=== PATIENT | male | born 1995 | race Caucasian/White ===

== ENCOUNTER 2017-01-28 18:10 | Emergency (ER) | payer MEDICAID ==
[2017-01-28] MEDS ORDERED: Sodium Chloride 0.9% 1,000 ML IV SCH (18:15)
[2017-01-28] MEDS ORDERED: LORazepam 2 MG/ML MDV IVPUSH ONE (18:16)
[2017-01-28 18:23] VITALS: BP 128/83
[2017-01-28] MEDS ORDERED: Sodium Chloride 0.9% 1,000 ML IV ONE (18:59)
--- NOTE | 2017-01-28 19:05 | EDM.PDOC ---
ED HPI SEIZURE COMPLAINT - General Chief Complaint: Neuro Symptoms/Deficits Stated Complaint: [facility] Time Seen by Provider: 01/28/17 18:15 Source of Information: Reports: Patient, EMS History Limitations: Reports: No limitations - History of Present Illness INITIAL COMMENTS - FREE TEXT/NARRATIVE: The patient presents with a seizure. 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 He has a history of seizures. He has been taking his medications. He does drink at times but he did not have anything to drink recently. He has no fever, chills, cough, congestion, chest pain, shortness of breath, abdominal pain, nausea or vomiting. Timing/Duration: Reports: seconds: (30) Event Occurred (Where): work Event (Witnessed/Unwitnessed): witnessed Location: Reports: generalized Quality: Reports: generalized shaking Severity: moderate Context: Reports: activity/exercise (Working). Denies: recent ETOH, new/change in medications, missed med dose(s), illness, trauma, photo stimulation Pre Event Symptom(s): Reports: no other symptoms - Related Data Allergies/ADRs: Allergies Allergy/AdvReac Type Severity Reaction Status Date / Time seasonal Allergy Other Uncoded 01/28/17 18:22 Home Meds: Home Meds levETIRAcetam [Keppra] 750 mg PO BID 11/11/16 [History] levETIRAcetam [Keppra] 1,000 mg PO BID #60 tablet 01/28/17 [Rx] Past Medical History - Past Health History Medical/Surgical History: Denies Medical/Surgical History HEENT History: Reports: Other (see below) Other HEENT History: missing tooth. Musculoskeletal History: Reports: Fracture Other Musculoskeletal History: broke both arms, ankle Neurological History: Reports: Seizure - Past Surgical History Musculoskeletal Surgical History: Reports: ORIF Other Musculoskeletal Surgeries/Procedures:: left arm Social & Family History - Family History Respiratory: Reports: COPD - Tobacco Use Smoking Status *Q: Current Every Day Smoker Years of Tobacco use: 4 Packs/Tins Daily: 0.5 Second Hand Smoke Exposure: Yes - Caffeine Use Caffeine Use: Reports: Soda - Alcohol Use Days Per Week of Alcohol Use: 3 Number of Drinks Per Day: 8 Total Drinks Per Week: 24 - Recreational Drug Use Recreational Drug Use: No Drug Use in Last 12 Months: Yes Recreational Drug Type: Reports: Marijuana/Hashish, Methamphetamine Recreational Drug Use Frequency: Patient Refuses To Answer ED ROS GENERAL - Review of Systems Review Of Systems: See Below Constitutional: Reports: no symptoms HEENT: Reports: No symptoms Respiratory: Reports: No Symptoms Cardiovascular: Reports: No symptoms Endocrine: Reports: no symptoms GI/Abdominal: Reports: No symptoms : Reports: no symptoms Musculoskeletal: Reports: no symptoms Skin: Reports: no symptoms Neurological: Reports: Seizure - Physical Exam Exam: See Below Exam Limited By: No limitations General Appearance: alert, no apparent distress Ears: normal external exam Nose: normal inspection Head Exam: atraumatic, normocephalic Neck: normal inspection Respiratory/Chest: no respiratory distress, lungs clear, normal breath sounds Cardiovascular: regular rate, rhythm, no edema, no murmur GI/Abdominal: soft, non tender, no organomegaly, no mass Neuro Exam (Abbreviated): alert, oriented, no motor/sensory deficits Course - Vital Signs Last Recorded V/S: Last Vital Signs Temp 97.2 F 01/28/17 18:10 Pulse 108 H 01/28/17 18:10 Resp 16 01/28/17 18:10 BP 128/83 01/28/17 18:10 Pulse Ox 99 01/28/17 18:10 - Orders/Labs/Meds Orders: Active Orders 24 hr Category Date Time Status Magnesium Sulfate/D5W [Magnesium 1 GM in D5W 100 ML] 1 Med 01/28/17 18:59 Active gm Premix Bag 1 bag IV ONETIME Sodium Chloride 0.9% [Normal Saline] 1,000 ml Med 01/28/17 18:15 Active IV ASDIRECTED Sodium Chloride 0.9% [Normal Saline] 1,000 ml Med 01/28/17 18:59 Active IV ONETIME Medication Orders Sodium Chloride (Normal Saline) 1,000 mls @ 125 mls/hr IV ASDIRECTED NATHANAEL Last Admin: 01/28/17 18:31 Dose: 125 mls/hr Sodium Chloride (Normal Saline) 1,000 mls @ 1,000 mls/hr IV ONETIME ONE Stop: 01/28/17 19:58 Magnesium Sulfate/Dextrose 1 (gm/ Premix) 100 mls @ 100 mls/hr IV ONETIME ONE Stop: 01/28/17 19:58 Labs: Laboratory Tests 03/28/17 03/28/17 Range/Units 18:27 18:27 WBC 6.97 (4.23-9.07) K/mm3 RBC 3.82 L (4.63-6.08) M/mm3 Hgb 12.8 L (13.7-17.5) gm/L Hct 36.7 L (40.1-51.0) % MCV 96.1 H (79.0-92.2) fl MCH 33.5 H (25.7-32.2) pg MCHC 34.9 (32.2-35.5) g/dl RDW Std Deviation 40.5 (35.1-43.9) fL Plt Count 212 (163-337) K/mm3 MPV 8.7 L (9.4-12.3) fl Neut % (Auto) 75.0 H (34.0-67.9) % Lymph % (Auto) 14.8 L (21.8-53.1) % Cloud % (Auto) 9.8 (5.3-12.2) % Eos % (Auto) 0 L (0.8-7.0) Baso % (Auto) 0.3 (0.1-1.2) % Neut # (Auto) 5.23 (1.78-5.38) K/mm3 Lymph # (Auto) 1.03 L (1.32-3.57) K/mm3 Cloud # (Auto) 0.68 (0.30-0.82) K/mm3 Eos # (Auto) 0.00 L (0.04-0.54) K/mm3 Baso # (Auto) 0.02 (0.01-0.08) K/mm3 Sodium 131 L (136-145) mEq/L Potassium 3.5 (3.5-5.1) mEq/L Chloride 93 L (98-107) mEq/L Carbon Dioxide 20 L (21-32) mEq/L Anion Gap 21.5 H (5-15) BUN 9 (7-18) mg/dL Creatinine 1.0 (0.7-1.3) mg/dL Est Cr Clr Drug Dosing 130.09 mL/min Estimated GFR (MDRD) > 60 (>60) mL/min BUN/Creatinine Ratio 9.0 L (14-18) Glucose 126 H (74-106) mg/dL Calcium 9.1 (8.5-10.1) mg/dL Magnesium 1.1 L (1.8-2.4) mg/dl Total Bilirubin 1.4 H (0.2-1.0) mg/dL AST 195 H (15-37) U/L ALT 86 H (16-63) U/L Alkaline Phosphatase 80 (46-116) U/L Total Protein 7.2 (6.4-8.2) g/dl Albumin 4.3 (3.4-5.0) g/dl Globulin 2.9 gm/dL Albumin/Globulin Ratio 1.5 (1-2) Ethyl Alcohol 0.00 (0.00) gm% Meds: Medications Generic Name Dose Route Start Last Admin Trade Name Freq PRN Reason Stop Dose Admin Sodium Chloride 1,000 mls @ 125 mls/hr 01/28/17 18:15 01/28/17 18:31 Normal Saline IV 125 mls/hr ASDIRECTED NATHANAEL Administration Sodium Chloride 1,000 mls @ 1,000 mls/hr 01/28/17 18:59 Normal Saline IV 01/28/17 19:58 ONETIME ONE Magnesium Sulfate/Dextrose 1 100 mls @ 100 mls/hr 01/28/17 18:59 gm/ Premix IV 01/28/17 19:58 ONETIME ONE Discontinued Medications Generic Name Dose Route Start Last Admin Trade Name Freq PRN Reason Stop Dose Admin Lorazepam 1 mg 01/28/17 18:16 01/28/17 18:31 Ativan IVPUSH 01/28/17 18:17 1 mg ONETIME ONE Administration - Re-Assessments/Exams Free Text/Narrative Re-Assessment/Exam: 01/28/17 19:04 I ordered an IV NS at 125mL/hr and ativan 1mg IV. His CBC looks good. His anion gap was elevated at 21.5. His creatinine was normal at 1. His gluocose was elevated at 126. His total bili was elevated at 1.4. His AST was elevated at 195. His ALT was elevated at 86. His ETOH was O. Departure - Departure Time of Disposition: 19:15 Disposition: Home, Self-Care 01 Condition: good Clinical Impression: Seizure, Hypomagnesemia Prescriptions: levETIRAcetam [Keppra] 1,000 mg PO BID #60 tablet Forms: ED Department Discharge Additional Instructions: Follow up with your neurologist. Take keppra 1,000mg by mouth 2 times per day. Do not drive until the neurologist has released you. Drink plenty of fluids and take a multivitamin. Please return if you are worse. - My Orders Last 24 Hours: My Active Orders 01/28/17 18:15 Sodium Chloride 0.9% [Normal Saline] 1,000 ml IV ASDIRECTED 01/28/17 18:59 Magnesium Sulfate/D5W [Magnesium 1 GM in D5W 100 ML] 1 gm Premix Bag 1 bag IV ONETIME Sodium Chloride 0.9% [Normal Saline] 1,000 ml IV ONETIME - Assessment/Plan Last 24 Hours: My Active Orders 01/28/17 18:15 Sodium Chloride 0.9% [Normal Saline] 1,000 ml IV ASDIRECTED 01/28/17 18:59 Magnesium Sulfate/D5W [Magnesium 1 GM in D5W 100 ML] 1 gm Premix Bag 1 bag IV ONETIME Sodium Chloride 0.9% [Normal Saline] 1,000 ml IV ONETIME
[2017-01-28] MEDS ORDERED: Ondansetron 4 MG/2 ML SDV IVPUSH ONE (19:24)
== END 2017-01-28 20:45 | disposition home or self-care (01) ==
LOC: JD.ED 18:10
DX: G40.909 Epilepsy, unspecified, not intractable, without status epilepticus (principal); E83.42 Hypomagnesemia; J30.2 Other seasonal allergic rhinitis; Z79.899 Other long term (current) drug therapy; F17.200 Nicotine dependence, unspecified, uncomplicated
CPT/HCPCS: 36415; 80053; 83735; 85025; 96361; 96365; 96375; 99284; G0480; J2060; J2405; J3475; J7040; 99285-25

== ENCOUNTER 2017-02-03 14:45 | Emergency (ER) | payer OTHER, MEDICAID ==
[2017-02-03] MEDS ORDERED: Lidocaine 1% 10 ML MDV INJECT ONE (15:11)
[2017-02-03] MEDS ORDERED: Lidocaine 1% 50 ML MDV ONE (15:18)
[2017-02-03] MEDS ORDERED: Lidocaine 1% 50 ML MDV INJECT ONE (15:20)
[2017-02-03] MEDS: Lidocaine 1% 30 ML SDV ONE ×2 (15:21→15:44)
--- NOTE | 2017-02-03 15:21 | EDM.PDOC ---
ED HPI Skin/Rash - General Chief Complaint: Laceration Stated Complaint: R ARM LAC Time Seen by Provider: 02/03/17 15:12 Source: Reports: Patient History Limitations: Reports: No limitations - History of Present Illness INITIAL COMMENTS - FREE TEXT/NARRATIVE: 21-year-old male presents the ED with a work related injury. Injury occurred approximately 1430 hours. He suffered a laceration across the dorsal aspect of his right wrist on the ulnar aspect. This was cut with a sharp piece of tin. Tetanus toxoid is up to date last year. Symptom Onset Date: 02/03/17 Symptom Onset Time: 14:30 Timing: Reports: still present Location, Skin: Reports: upper extremity, right (Right dorsal wrist) Quality: Reports: Burning Severity: mild Known Identified Source: yes Place of Occurrence: work Sick Contact: no Associated Symptoms: Reports: no other symptoms Similar Symptoms Previously: no Recent Medical Care: no Treatments [employer]: Reports: Other (see below) (9) - Related Data Allergies Allergy/AdvReac Type Severity Reaction Status Date / Time seasonal Allergy Other Uncoded 02/03/17 15:06 Home Meds: Ambulatory Orders Medication Instructions Recorded Confirmed levETIRAcetam [Keppra] 750 mg PO BID 11/11/16 01/28/17 levETIRAcetam [Keppra] 1,000 mg PO BID #60 tablet 01/28/17 Past Medical History - Past Health History Medical/Surgical History: Denies Medical/Surgical History HEENT History: Reports: Other (see below) Other HEENT History: missing tooth. Musculoskeletal History: Reports: Fracture Other Musculoskeletal History: broke both arms, ankle Neurological History: Reports: Seizure (Well controlled on Keppra.) - Past Surgical History Musculoskeletal Surgical History: Reports: ORIF Other Musculoskeletal Surgeries/Procedures:: left arm Social & Family History - Family History Respiratory: Reports: COPD - Tobacco Use Smoking Status *Q: Current Every Day Smoker Years of Tobacco use: 4 Packs/Tins Daily: 0.5 Second Hand Smoke Exposure: Yes - Caffeine Use Caffeine Use: Reports: Soda - Alcohol Use Days Per Week of Alcohol Use: 3 Number of Drinks Per Day: 8 Total Drinks Per Week: 24 - Recreational Drug Use Recreational Drug Use: No Drug Use in Last 12 Months: Yes Recreational Drug Type: Reports: Marijuana/Hashish, Methamphetamine Recreational Drug Use Frequency: Patient Refuses To Answer - Living Situation & Occupation Occupation: employed ED ROS GENERAL - Review of Systems Review Of Systems: See Below Constitutional: Reports: no symptoms HEENT: Reports: No symptoms Respiratory: Reports: No Symptoms Cardiovascular: Reports: No symptoms Endocrine: Reports: no symptoms GI/Abdominal: Reports: No symptoms : Reports: no symptoms Musculoskeletal: Reports: other (Laceration right dorsal wrist.) Skin: Reports: other (Laceration right dorsal wrist.) Neurological: Reports: No Symptoms Psychiatric: Reports: No symptoms, Other Immunologic: Reports: no symptoms ED EXAM, SKIN/RASH Exam: See Below Exam Limited By: Other General Appearance: WD/WN, no apparent distress Extremities: other (Has a 1.5 cm laceration dorsal aspect of his right wrist-- ulnarly. Wound is fairly superficial. No evidence of tendon involvement.) Neurological: alert, oriented, CN II-XII intact, normal cognition, normal gait Psychiatric: normal affect, normal mood Skin: Warm, Dry, Intact, Normal color, No rash Location, Skin: head, face, neck, chest, abdomen Characteristics: macular, papular, maculopapular Associated features: warmth, tenderness, swelling ED SKIN PROCEDURES - Laceration/Wound Repair Right Posterior Distal Dorsal Wrist Lac/wound length in cm: 2.0 (Laceration ulnar aspect dorsal wrist) Appearance: subcutaneous Distal NVT: neuro & vascular intact Anesthetic type: local Local anesthesia - Lidocaine (Xylocaine): 1% plain Local anesthetic volume: 2cc Skin prep: chlorhexidine (hibiciens) Exploration/Debridement/Repair: wound explored Closed with: sutures Suture size: 4-0 # of sutures: 4 Suture type: nylon, interrupted, simple Course - Vital Signs Last Recorded V/S: Last Vital Signs Temp 37.3 C 02/03/17 15:06 Pulse Resp 16 02/03/17 15:06 BP 127/87 02/03/17 15:06 Pulse Ox 98 02/03/17 15:06 - Orders/Labs/Meds Meds: Medications Discontinued Medications Generic Name Dose Route Start Last Admin Trade Name Antoine PRN Reason Stop Dose Admin Lidocaine HCl 50 ml 02/03/17 15:11 Xylocaine 1% INJECT 02/03/17 15:12 ONETIME ONE Lidocaine HCl Confirm 02/03/17 15:16 02/03/17 15:21 Xylocaine-Mpf 1% Administered 02/03/17 15:17 Not Given Dose 30 ml .ROUTE .STK-MED ONE Lidocaine HCl Confirm 02/03/17 15:18 02/03/17 15:21 Xylocaine 1% Administered 02/03/17 15:19 Not Given Dose 50 ml .ROUTE .STK-MED ONE Lidocaine HCl 30 ml 02/03/17 15:20 Xylocaine 1% INJECT 02/03/17 15:21 ONETIME ONE - Radiology Interpretation Free Text/Narrative:: 21-year-old male presents to the ED with a work related injury. Suffered a 2.0 cm laceration dorsal ulnar wrist on a sharp piece of tin about 45 minutes ago. There is no evidence of tendon involvement. Neurovascularly intact. Plan will be cleansed and then sutured under local anesthetic. Sutures would be removed in 10 days' time. - Re-Assessments/Exams Free Text/Narrative Re-Assessment/Exam: 02/03/17 15:44 2.0 cm laceration dorsal ulnar aspect right wrist sutured times 4 Ethilon sutures. Departure - Departure Time of Disposition: 15:41 Disposition: Home, Self-Care 01 Condition: fair Clinical Impression: Laceration of right wrist Qualifiers: Encounter type: initial encounter Qualified Code(s): S61.511A - Laceration without foreign body of right wrist, initial encounter Referrals: PCP,None [Primary Care Provider] - Forms: ED Department Discharge Additional Instructions: Evaluation in the emergency room today in regards to work related injury. 2.0 cm laceration dorsal ulnar wrist was cleansed and then sutured under local anesthetic. Treatment at home as daily cleanse the wound soap and water. Showering is okay. Then apply topical antibiotic such as bacitracin or Polysporin once daily. Cover the wound to keep clean. Sutures should be removed in 10 days' time. Followup with a medical care provider sooner if you see any signs of infection such as increased swelling redness or obvious pus.
[2017-02-03 15:52] VITALS: BP 129/74
== END 2017-02-03 15:45 | disposition home or self-care (01) ==
LOC: JD.ED 14:45
DX: S61.511A Laceration without foreign body of right wrist, initial encounter (principal); W45.8XXA Other foreign body or object entering through skin, initial encounter; Y92.69 Other specified industrial and construction area as the place of occurrence of the external cause; Y99.0 Civilian activity done for income or pay; F17.210 Nicotine dependence, cigarettes, uncomplicated; Z98.890 Other specified postprocedural states
CPT/HCPCS: 12001; 99282; 99283-25

== ENCOUNTER 2017-09-01 16:15 | Emergency (ER) | payer MEDICAID, OTHER ==
[2017-09-01] MEDS ORDERED: LORazepam 2 MG/ML MDV IVPUSH ONE (16:25)
[2017-09-01] MEDS ORDERED: Sodium Chloride 0.9% 1,000 ML IV ONE (16:25)
[2017-09-01] MEDS ORDERED: Sodium Chloride 0.9% 10 ML Syringe FLUSH PRN (16:26)
--- NOTE | 2017-09-01 16:40 | EDM.PDOC ---
ED HPI GENERAL MEDICAL PROBLEM - General Chief Complaint: Neurological Problem Stated Complaint: [facility] Time Seen by Provider: 09/01/17 16:20 Source of Information: Reports: Patient History Limitations: Reports: No Limitations - History of Present Illness INITIAL COMMENTS - FREE TEXT/NARRATIVE: 22-year-old male arrives via [facility] ambulance service for evaluation and treatment post seizure. Reportedly the patient was walking down the street with some friends from work. States that he fell and had a generalized tonic- clonic seizure lasting approximately 5 minutes. He has an abrasion to his nose and a bite to his tongue. He reports he has a slight headache. Reports he was post ictal after the seizure feels that he is improving now. No loss of bowel or bladder function. Denies any current lightheadedness, dizziness, neck pain, chest pain, shortness of breath or abdominal pain. Patient states he did not hit his head. Patient has past medical history of seizures. Reports his last seizure was several months ago. He is on Keppra twice a day. He has been taking this as prescribed. Sees neurology in [place]. Last visit was about 2 months ago. Scheduled to see his neurologist in about 4 months. Reports he's had EEGs, MRIs and CTs. No abnormalities were found to be etiology as the sutures. Reports seizures first started about 2 or 3 years ago. Patient reports that he does drink alcohol. He did have some alcohol last night. Denies any illicit drugs. Tetanus is up-to-date. - Related Data Allergies Allergy/AdvReac Type Severity Reaction Status Date / Time seasonal Allergy Other Uncoded 09/01/17 16:32 Home Meds: Home Meds levETIRAcetam [Keppra] 1,000 mg PO BID #60 tablet 01/28/17 [Rx] Magnesium Chloride [Slow-Mag] 71.5 mg PO DAILY #7 tablet. 09/01/17 [Rx] lamoTRIgine [Lamotrigine] 150 mg PO BID 09/01/17 [History] Past Medical History - Past Health History Medical/Surgical History: Denies Medical/Surgical History HEENT History: Reports: Other (See Below) Other HEENT History: missing tooth. Musculoskeletal History: Reports: Fracture Other Musculoskeletal History: broke both arms, ankle Neurological History: Reports: Seizure - Past Surgical History Musculoskeletal Surgical History: Reports: ORIF Other Musculoskeletal Surgeries/Procedures:: left arm Social & Family History - Family History Respiratory: Reports: COPD - Tobacco Use Smoking Status *Q: Never Smoker Years of Tobacco use: 4 Packs/Tins Daily: 0.5 Second Hand Smoke Exposure: Yes - Caffeine Use Caffeine Use: Reports: Coffee, Soda - Alcohol Use Days Per Week of Alcohol Use: 3 Number of Drinks Per Day: 8 Total Drinks Per Week: 24 - Recreational Drug Use Recreational Drug Use: No Drug Use in Last 12 Months: Yes Recreational Drug Type: Reports: Marijuana/Hashish, Methamphetamine Recreational Drug Use Frequency: Patient Refuses To Answer - Living Situation & Occupation Occupation: Employed ED ROS GENERAL - Review of Systems Review Of Systems: See Below Constitutional: Denies: Fever HEENT: Reports: Other (tongue bite) Respiratory: Denies: Shortness of Breath Cardiovascular: Denies: Chest Pain GI/Abdominal: Denies: Abdominal Pain, Nausea, Stool Incontinence, Vomiting : Denies: Incontinence Musculoskeletal: Denies: Neck Pain Neurological: Reports: Headache, Seizure - Physical Exam Exam: See Below Exam Limited By: No Limitations General Appearance: Alert, WD/WN, No Apparent Distress Eye Exam: Bilateral Eye: PERRL Ears: Normal External Exam, Normal Canal, Hearing Grossly Normal, Normal TMs Nose: Normal Inspection Throat/Mouth: Normal Inspection, Normal Lips, Normal Voice, No Airway Compromise , Evidence of Tongue Biting (approximately 1cm cresent shaped bite errol to the right lateral tongue) Neck: Normal Inspection, Supple, Non-Tender, Full Range of Motion Respiratory/Chest: No Respiratory Distress, Lungs Clear, Normal Breath Sounds Cardiovascular: Normal Peripheral Pulses, Regular Rate, Rhythm, No Murmur GI/Abdominal: Normal Bowel Sounds, Non-Tender Neuro Exam (Abbreviated): Alert, Oriented, Normal Cognition Psychiatric: Normal Affect, Normal Mood Skin Exam: Warm, Dry, Normal Color Course - Vital Signs Last Recorded V/S: Last Vital Signs Temp 36.3 C 09/01/17 16:19 Pulse 97 09/01/17 18:03 Resp 15 09/01/17 18:03 BP 144/86 H 09/01/17 18:03 Pulse Ox 97 09/01/17 18:03 - Orders/Labs/Meds Orders: Active Orders 24 hr Category Date Time Status Peripheral IV Care [RC] . DIRECTED Care 09/01/17 16:26 Active Sodium Chloride 0.9% [Saline Flush] Med 09/01/17 16:26 Active 10 ml FLUSH ASDIRECTED PRN Peripheral IV Insertion Adult [OM.PC] Routine Oth 09/01/17 16:25 Ordered Medication Orders Sodium Chloride (Saline Flush) 10 ml FLUSH ASDIRECTED PRN PRN Reason: Keep Vein Open Last Admin: 09/01/17 17:02 Dose: 10 ml Labs: Laboratory Tests 09/01/17 09/01/17 09/01/17 Range/Units 16:25 16:25 16:45 WBC 8.64 (4.23-9.07) K/mm3 RBC 4.06 L (4.63-6.08) M/mm3 Hgb 14.1 (13.7-17.5) gm/L Hct 39.5 L (40.1-51.0) % MCV 97.3 H (79.0-92.2) fl MCH 34.7 H (25.7-32.2) pg MCHC 35.7 H (32.2-35.5) g/dl RDW Std Deviation 42.6 (35.1-43.9) fL Plt Count 223 (163-337) K/mm3 MPV 9.1 L (9.4-12.3) fl Neut % (Auto) 84.4 H (34.0-67.9) % Lymph % (Auto) 8.2 L (21.8-53.1) % Franklin % (Auto) 6.5 (5.3-12.2) % Eos % (Auto) 0.2 L (0.8-7.0) Baso % (Auto) 0.5 (0.1-1.2) % Neut # (Auto) 7.29 H (1.78-5.38) K/mm3 Lymph # (Auto) 0.71 L (1.32-3.57) K/mm3 Franklin # (Auto) 0.56 (0.30-0.82) K/mm3 Eos # (Auto) 0.02 L (0.04-0.54) K/mm3 Baso # (Auto) 0.04 (0.01-0.08) K/mm3 Manual Slide Review Normal smear PT (8.0-13.0) SECONDS INR APTT (22-36) SECONDS Sodium (136-145) mEq/L Potassium (3.5-5.1) mEq/L Chloride (98-107) mEq/L Carbon Dioxide (21-32) mEq/L Anion Gap (5-15) BUN (7-18) mg/dL Creatinine (0.7-1.3) mg/dL Est Cr Clr Drug Dosing mL/min Estimated GFR (MDRD) (>60) mL/min BUN/Creatinine Ratio (14-18) Glucose (74-106) mg/dL Calcium (8.5-10.1) mg/dL Magnesium (1.8-2.4) mg/dl Total Bilirubin (0.2-1.0) mg/dL AST (15-37) U/L ALT (16-63) U/L Alkaline Phosphatase (46-116) U/L Total Protein (6.4-8.2) g/dl Albumin (3.4-5.0) g/dl Globulin gm/dL Albumin/Globulin Ratio (1-2) Vitamin B12 (193-986) pg/ml Folate (8.6-58.9) ng/mL Urine Color Yellow (Yellow) Urine Appearance Clear (Clear) Urine pH 7.0 (5.0-8.0) Ur Specific [place] > or = 1.030 (1.005-1.030) Urine Protein 3+ H (Negative) Urine Glucose (UA) Negative (Negative) Urine Ketones Negative (Negative) Urine Occult Blood 1+ H (Negative) Urine Nitrite Negative (Negative) Urine Bilirubin Negative (Negative) Urine Urobilinogen 0.2 (0.2-1.0) Ur Leukocyte Esterase Negative (Negative) Urine RBC 5-10 H (0-5) /hpf Urine WBC 5-10 H (0-5) /hpf Ur Epithelial Cells 0-5 (0-5) /hpf Amorphous Sediment Few H (NOT SEEN) /hpf Urine Bacteria Few (FEW) /hpf Urine Mucus Moderate H (FEW) /hpf Urine Opiates Screen Negative (NEGATIVE) Ur Buprenorphine Scrn Negative (NEGATIVE) Ur Oxycodone Screen Negative (NEGATIVE) Urine Methadone Screen Negative (NEGATIVE) Ur Propoxyphene Screen Negative (NEGATIVE) Ur Barbiturates Screen Negative (NEGATIVE) Ur Tricyclics Screen Negative (NEGATIVE) Ur Phencyclidine Scrn Negative (NEGATIVE) Ur Amphetamine Screen Negative (NEGATIVE) U Methamphetamines Scrn Negative (NEGATIVE) U Benzodiazepines Scrn Negative (NEGATIVE) U Cocaine Metab Screen Presumptive positive H (NEGATIVE) U Marijuana (THC) Screen Presumptive positive H (NEGATIVE) Ethyl Alcohol (0.00) gm% 09/01/17 09/01/17 09/01/17 Range/Units 16:45 16:45 16:45 WBC (4.23-9.07) K/mm3 RBC (4.63-6.08) M/mm3 Hgb (13.7-17.5) gm/L Hct (40.1-51.0) % MCV (79.0-92.2) fl MCH (25.7-32.2) pg MCHC (32.2-35.5) g/dl RDW Std Deviation (35.1-43.9) fL Plt Count (163-337) K/mm3 MPV (9.4-12.3) fl Neut % (Auto) (34.0-67.9) % Lymph % (Auto) (21.8-53.1) % Franklin % (Auto) (5.3-12.2) % Eos % (Auto) (0.8-7.0) Baso % (Auto) (0.1-1.2) % Neut # (Auto) (1.78-5.38) K/mm3 Lymph # (Auto) (1.32-3.57) K/mm3 Franklin # (Auto) (0.30-0.82) K/mm3 Eos # (Auto) (0.04-0.54) K/mm3 Baso # (Auto) (0.01-0.08) K/mm3 Manual Slide Review PT 9.4 (8.0-13.0) SECONDS INR 0.87 APTT 24 (22-36) SECONDS Sodium 138 (136-145) mEq/L Potassium 3.8 (3.5-5.1) mEq/L Chloride 99 (98-107) mEq/L Carbon Dioxide 25 (21-32) mEq/L Anion Gap 17.8 H (5-15) BUN 9 (7-18) mg/dL Creatinine 0.8 (0.7-1.3) mg/dL Est Cr Clr Drug Dosing 161.24 mL/min Estimated GFR (MDRD) > 60 (>60) mL/min BUN/Creatinine Ratio 11.3 L (14-18) Glucose 95 (74-106) mg/dL Calcium 9.4 (8.5-10.1) mg/dL Magnesium 1.6 L (1.8-2.4) mg/dl Total Bilirubin 0.6 (0.2-1.0) mg/dL AST 115 H (15-37) U/L ALT 62 (16-63) U/L Alkaline Phosphatase 74 (46-116) U/L Total Protein 8.1 (6.4-8.2) g/dl Albumin 4.4 (3.4-5.0) g/dl Globulin 3.7 gm/dL Albumin/Globulin Ratio 1.2 (1-2) Vitamin B12 607 (193-986) pg/ml Folate 12.3 (8.6-58.9) ng/mL Urine Color (Yellow) Urine Appearance (Clear) Urine pH (5.0-8.0) Ur Specific [place] (1.005-1.030) Urine Protein (Negative) Urine Glucose (UA) (Negative) Urine Ketones (Negative) Urine Occult Blood (Negative) Urine Nitrite (Negative) Urine Bilirubin (Negative) Urine Urobilinogen (0.2-1.0) Ur Leukocyte Esterase (Negative) Urine RBC (0-5) /hpf Urine WBC (0-5) /hpf Ur Epithelial Cells (0-5) /hpf Amorphous Sediment (NOT SEEN) /hpf Urine Bacteria (FEW) /hpf Urine Mucus (FEW) /hpf Urine Opiates Screen (NEGATIVE) Ur Buprenorphine Scrn (NEGATIVE) Ur Oxycodone Screen (NEGATIVE) Urine Methadone Screen (NEGATIVE) Ur Propoxyphene Screen (NEGATIVE) Ur Barbiturates Screen (NEGATIVE) Ur Tricyclics Screen (NEGATIVE) Ur Phencyclidine Scrn (NEGATIVE) Ur Amphetamine Screen (NEGATIVE) U Methamphetamines Scrn (NEGATIVE) U Benzodiazepines Scrn (NEGATIVE) U Cocaine Metab Screen (NEGATIVE) U Marijuana (THC) Screen (NEGATIVE) Ethyl Alcohol 0.00 (0.00) gm% Meds: Medications Generic Name Dose Route Start Last Admin Trade Name Freq PRN Reason Stop Dose Admin Sodium Chloride 10 ml 09/01/17 16:26 09/01/17 17:02 Saline Flush FLUSH 10 ml ASDIRECTED PRN Administration Keep Vein Open Discontinued Medications Generic Name Dose Route Start Last Admin Trade Name Freq PRN Reason Stop Dose Admin Sodium Chloride 1,000 mls @ 999 mls/hr 09/01/17 16:25 09/01/17 17:01 Normal Saline IV 09/01/17 17:25 999 mls/hr ONETIME ONE Administration Lorazepam 1 mg 09/01/17 16:25 09/01/17 17:01 Ativan IVPUSH 09/01/17 16:26 1 mg ONETIME ONE Administration - Re-Assessments/Exams Free Text/Narrative Re-Assessment/Exam: 09/01/17 18:02 I Reviewed the lab results with the patient. I feel that his seizure today was induced by alcohol from last night. I encouraged him not to drink or use illicit drugs. Continue on his Keppra 1000 milligrams twice a day. Recommend follow-up with neurology. No driving until cleared by neurology. Recommend follow-up with family medicine for his hypomagnesemia. Discharge instructions as documented. Departure - Departure Time of Disposition: 18:05 Disposition: Home, Self-Care 01 Condition: Fair Clinical Impression: Hypomagnesemia, Seizure - Discharge Information Prescriptions: Magnesium Chloride [Slow-Mag] 71.5 mg PO DAILY #7 tablet.dr Instructions: Hypomagnesemia, Seizure, Adult, [id number] Referrals: Zain Falcon MD [Physician] - Yadira Moran [Physician] - Forms: ED Department Discharge Additional Instructions: Slow-Mag 1 tab daily. Follow-up with family medicine this week or early next week for a recheck on your magnesium levels. Recommend Dr. Sewell at [facility]. Call [phone] to schedule with him. Follow-up with neurology. No driving until cleared with neurology. Continue on your Keppra 1000 mg twice a day. Make sure you are drinking plenty of fluids. Avoid alcohol and any illicit drugs. Please return to the ER if your symptoms change or worsen. - My Orders Last 24 Hours: My Active Orders 09/01/17 16:25 Peripheral IV Insertion Adult [OM.PC] Routine 09/01/17 16:26 Peripheral IV Care [RC] . DIRECTED Sodium Chloride 0.9% [Saline Flush] 10 ml FLUSH ASDIRECTED PRN - Assessment/Plan Last 24 Hours: My Active Orders 09/01/17 16:25 Peripheral IV Insertion Adult [OM.PC] Routine 09/01/17 16:26 Peripheral IV Care [RC] . DIRECTED Sodium Chloride 0.9% [Saline Flush] 10 ml FLUSH ASDIRECTED PRN
[2017-09-01 18:04] VITALS: BP 144/86
== END 2017-09-01 18:26 | disposition home or self-care (01) ==
LOC: JD.ED 16:15
DX: E83.42 Hypomagnesemia (principal); R56.9 Unspecified convulsions; Z79.899 Other long term (current) drug therapy
CPT/HCPCS: 36415; 80053; 80306; 81001; 82607; 82746; 83735; 85025; 85610; 85730; 96361; 96374; 99285; G0480; J2060; J7040; J7050; 99284

== ENCOUNTER 2017-09-26 09:21 | Emergency (ER) | payer MEDICAID ==
[2017-09-26 09:33] VITALS: BP 157/100
[2017-09-26] MEDS ORDERED: LORazepam 2 MG/ML MDV IVPUSH ONE ×2 (09:44→12:12)
[2017-09-26] MEDS ORDERED: Sodium Chloride 0.9% 10 ML Syringe FLUSH PRN (09:45)
[2017-09-26] MEDS ORDERED: Sodium Chloride 0.9% 1,000 ML IV SCH (09:45)
[2017-09-26] MEDS ORDERED: Sodium Chloride 0.9% 1,000 ML IV ONE (10:40)
--- NOTE | 2017-09-26 10:54 | EDM.PDOC ---
ED HPI GENERAL MEDICAL PROBLEM - General Chief Complaint: Neurological Problem Stated Complaint: [facility] Time Seen by Provider: 09/26/17 09:39 Source of Information: Reports: Patient, EMS History Limitations: Reports: No Limitations - History of Present Illness INITIAL COMMENTS - FREE TEXT/NARRATIVE: The patient presents after a seizure. He has a history of seizures. He is on keppra and lamotrigine. He has been out of one of them for a few days. It was Thanksgiving yesterday and he could not pick it up. He was up on a roof in a cage when it happened. He did not fall and he has no injuries from the seizure. He was post ictal when EMS arrived and he was alert and orientated when I went into the room to examine him. He denies any headache, fever, chills , cough, congestion or runny nose. He does admit to drinking beer yesterday. He did get enough sleep last night. Onset: Sudden Duration: Minutes: Location: Reports: Generalized Severity: Moderate Improves with: Reports: None Worsens with: Reports: None Context: Reports: Activity (He was at work) Associated Symptoms: Denies: Chest Pain, Cough, Fever/Chills, Headaches, Nausea/ Vomiting, Shortness of Breath - Related Data Allergies Allergy/AdvReac Type Severity Reaction Status Date / Time seasonal Allergy Other Uncoded 09/01/17 16:32 Home Meds: Home Meds levETIRAcetam [Keppra] 1,000 mg PO BID #60 tablet 01/28/17 [Rx] Magnesium Chloride [Slow-Mag] 71.5 mg PO DAILY #7 tablet. 09/01/17 [Rx] lamoTRIgine [Lamotrigine] 150 mg PO BID 09/01/17 [History] LORazepam [Ativan] 1 mg PO TID #18 tablet 09/26/17 [Rx] Past Medical History - Past Health History Medical/Surgical History: Denies Medical/Surgical History HEENT History: Reports: Other (See Below) Other HEENT History: missing tooth. Musculoskeletal History: Reports: Fracture Other Musculoskeletal History: broke both arms, ankle Neurological History: Reports: Seizure Psychiatric History: Reports: Anxiety - Past Surgical History Musculoskeletal Surgical History: Reports: ORIF Other Musculoskeletal Surgeries/Procedures:: left arm Social & Family History - Family History Respiratory: Reports: COPD - Tobacco Use Smoking Status *Q: Current Every Day Smoker Years of Tobacco use: 3 Packs/Tins Daily: 1 Second Hand Smoke Exposure: Yes - Caffeine Use Caffeine Use: Reports: Energy Drinks, Soda - Alcohol Use Days Per Week of Alcohol Use: 3 Number of Drinks Per Day: 8 Total Drinks Per Week: 24 - Recreational Drug Use Recreational Drug Use: No Drug Use in Last 12 Months: Yes Recreational Drug Type: Reports: Marijuana/Hashish, Methamphetamine Recreational Drug Use Frequency: Patient Refuses To Answer - Living Situation & Occupation Occupation: Employed ED ROS GENERAL - Review of Systems Review Of Systems: See Below Constitutional: Reports: No Symptoms HEENT: Reports: No Symptoms Respiratory: Reports: No Symptoms Cardiovascular: Reports: No Symptoms Endocrine: Reports: No Symptoms GI/Abdominal: Reports: No Symptoms : Reports: No Symptoms Musculoskeletal: Reports: No Symptoms Skin: Reports: No Symptoms Neurological: Reports: Seizure - Physical Exam Exam: See Below Exam Limited By: No Limitations General Appearance: Alert, No Apparent Distress Ears: Normal External Exam Nose: Normal Inspection Head Exam: Atraumatic, Normocephalic Neck: Normal Inspection Respiratory/Chest: No Respiratory Distress, Lungs Clear, Normal Breath Sounds Cardiovascular: Regular Rate, Rhythm, No Edema, No Murmur GI/Abdominal: Soft, Non-Tender, No Organomegaly, No Mass Neuro Exam (Abbreviated): Alert, Oriented, No Motor/Sensory Deficits Course - Vital Signs Last Recorded V/S: Last Vital Signs Temp 98.4 F 09/26/17 09:30 Pulse 112 H 09/26/17 09:30 Resp 17 09/26/17 09:30 BP 157/100 H 09/26/17 09:30 Pulse Ox 96 09/26/17 09:30 - Orders/Labs/Meds Orders: Active Orders 24 hr Category Date Time Status Cardiac Monitoring [RC] . DIRECTED Care 09/26/17 09:45 Active Peripheral IV Care [RC] . DIRECTED Care 09/26/17 09:45 Active KEPPRA [REF] Stat Lab 09/26/17 09:57 Received LAMOTRIGINE [REF] Stat Lab 09/26/17 09:57 Received LORazepam [Ativan] Med 09/26/17 12:12 Once 1 mg IVPUSH ONETIME ONE Sodium Chloride 0.9% [Normal Saline] 1,000 ml Med 09/26/17 09:45 Active IV ASDIRECTED Sodium Chloride 0.9% [Saline Flush] Med 09/26/17 09:45 Active 10 ml FLUSH ASDIRECTED PRN Peripheral IV Insertion Adult [OM.PC] Stat Oth 09/26/17 09:45 Ordered Medication Orders Sodium Chloride (Normal Saline) 1,000 mls @ 125 mls/hr IV ASDIRECTED NATHANAEL Last Admin: 09/26/17 10:00 Dose: 125 mls/hr Sodium Chloride (Saline Flush) 10 ml FLUSH ASDIRECTED PRN PRN Reason: Keep Vein Open Last Admin: 09/26/17 10:28 Dose: 10 ml Labs: Laboratory Tests 09/26/17 09/26/17 09/26/17 Range/Units 09:57 09:57 10:30 WBC 7.55 (4.23-9.07) K/mm3 RBC 4.30 L (4.63-6.08) M/mm3 Hgb 14.7 (13.7-17.5) gm/L Hct 41.0 (40.1-51.0) % MCV 95.3 H (79.0-92.2) fl MCH 34.2 H (25.7-32.2) pg MCHC 35.9 H (32.2-35.5) g/dl RDW Std Deviation 41.3 (35.1-43.9) fL Plt Count 209 (163-337) K/mm3 MPV 9.2 L (9.4-12.3) fl Neut % (Auto) 81.2 H (34.0-67.9) % Lymph % (Auto) 7.4 L (21.8-53.1) % Elk % (Auto) 10.7 (5.3-12.2) % Eos % (Auto) 0.1 L (0.8-7.0) Baso % (Auto) 0.3 (0.1-1.2) % Neut # (Auto) 6.13 H (1.78-5.38) K/mm3 Lymph # (Auto) 0.56 L (1.32-3.57) K/mm3 [place] # (Auto) 0.81 (0.30-0.82) K/mm3 Eos # (Auto) 0.01 L (0.04-0.54) K/mm3 Baso # (Auto) 0.02 (0.01-0.08) K/mm3 Manual Slide Review Abnormal smear Sodium 135 L (136-145) mEq/L Potassium 3.7 (3.5-5.1) mEq/L Chloride 91 L (98-107) mEq/L Carbon Dioxide 23 (21-32) mEq/L Anion Gap 24.7 H (5-15) BUN 14 (7-18) mg/dL Creatinine 1.0 (0.7-1.3) mg/dL Est Cr Clr Drug Dosing 128.99 mL/min Estimated GFR (MDRD) > 60 (>60) mL/min BUN/Creatinine Ratio 14.0 (14-18) Glucose 178 H (74-106) mg/dL Calcium 9.9 (8.5-10.1) mg/dL Magnesium 1.2 L (1.8-2.4) mg/dl Total Bilirubin 1.9 H (0.2-1.0) mg/dL AST 199 H (15-37) U/L ALT 77 H (16-63) U/L Alkaline Phosphatase 87 (46-116) U/L Total Protein 8.3 H (6.4-8.2) g/dl Albumin 4.6 (3.4-5.0) g/dl Globulin 3.7 gm/dL Albumin/Globulin Ratio 1.2 (1-2) Urine Opiates Screen Negative (NEGATIVE) Ur Buprenorphine Scrn Negative (NEGATIVE) Ur Oxycodone Screen Negative (NEGATIVE) Urine Methadone Screen Negative (NEGATIVE) Ur Propoxyphene Screen Negative (NEGATIVE) Ur Barbiturates Screen Negative (NEGATIVE) Ur Tricyclics Screen Negative (NEGATIVE) Ur Phencyclidine Scrn Negative (NEGATIVE) Ur Amphetamine Screen Negative (NEGATIVE) U Methamphetamines Scrn Negative (NEGATIVE) U Benzodiazepines Scrn Negative (NEGATIVE) U Cocaine Metab Screen Negative (NEGATIVE) U Marijuana (THC) Screen Presumptive positive H (NEGATIVE) Ethyl Alcohol 0.00 (0.00) gm% Meds: Medications Generic Name Dose Route Start Last Admin Trade Name Freq PRN Reason Stop Dose Admin Sodium Chloride 1,000 mls @ 125 mls/hr 09/26/17 09:45 09/26/17 10:00 Normal Saline IV 125 mls/hr ASDIRECTED NATHANAEL Administration Sodium Chloride 10 ml 09/26/17 09:45 09/26/17 10:28 Saline Flush FLUSH 10 ml ASDIRECTED PRN Administration Keep Vein Open Discontinued Medications Generic Name Dose Route Start Last Admin Trade Name Antoine PRN Reason Stop Dose Admin Sodium Chloride 1,000 mls @ 1,000 mls/hr 09/26/17 10:40 09/26/17 11:44 Normal Saline IV 09/26/17 11:39 1,000 mls/hr ONETIME ONE Administration Lorazepam 1 mg 09/26/17 09:44 09/26/17 09:54 Ativan IVPUSH 09/26/17 09:45 1 mg ONETIME ONE Administration Magnesium Oxide 400 mg 09/26/17 11:14 09/26/17 11:43 Magnesium Oxide PO 09/26/17 11:15 400 mg ONETIME ONE Administration - Re-Assessments/Exams Free Text/Narrative Re-Assessment/Exam: 09/26/17 10:57 I ordered an IV NS 1L bolus, ativan 1mg IV, and labs. 09/26/17 12:13 His CBC looks good. His Na was a little low 135. His creatinine was negative. His magnesium was low at 1.2. His AST was elevated at 199. His ALT was elevated at 77. His UDS was positive for marijuana. His ETOH was zero. He is feeling better but I feel he may be withdrawing from alcohol. He says he has been cutting back some and he had 2 beers yesterday. He wants to quit but he will stop on his own. I will give him another dose of ativan and I will get him on ativan. Departure - Departure Time of Disposition: 12:20 Disposition: Home, Self-Care 01 Condition: Good Clinical Impression: Seizure - Discharge Information Prescriptions: LORazepam [Ativan] 1 mg PO TID #18 tablet Referrals: PCP,None [Primary Care Provider] - Grace Weaver PA-C [Physician [employer]] - 1 Week Forms: ED Department Discharge Additional Instructions: Take your medication as prescribed. Also take ativan 1mg 3 times per day for 3 days then 2 times per day for 3 days and then at night for 3 days. Please return if you are worse. If you need help stopping drinking please call [facility] at . Please return if you are worse. - My Orders Last 24 Hours: My Active Orders 09/26/17 09:45 Cardiac Monitoring [RC] . DIRECTED Peripheral IV Care [RC] . DIRECTED Sodium Chloride 0.9% [Normal Saline] 1,000 ml IV ASDIRECTED Sodium Chloride 0.9% [Saline Flush] 10 ml FLUSH ASDIRECTED PRN Peripheral IV Insertion Adult [OM.PC] Stat 09/26/17 09:57 KEPPRA [REF] Stat LAMOTRIGINE [REF] Stat 09/26/17 12:12 LORazepam [Ativan] 1 mg IVPUSH ONETIME ONE - Assessment/Plan Last 24 Hours: My Active Orders 09/26/17 09:45 Cardiac Monitoring [RC] . DIRECTED Peripheral IV Care [RC] . DIRECTED Sodium Chloride 0.9% [Normal Saline] 1,000 ml IV ASDIRECTED Sodium Chloride 0.9% [Saline Flush] 10 ml FLUSH ASDIRECTED PRN Peripheral IV Insertion Adult [OM.PC] Stat 09/26/17 09:57 KEPPRA [REF] Stat LAMOTRIGINE [REF] Stat 09/26/17 12:12 LORazepam [Ativan] 1 mg IVPUSH ONETIME ONE
[2017-09-26] MEDS ORDERED: Magnesium Oxide 400 MG Tab PO ONE (11:14)
== END 2017-09-26 13:00 | disposition home or self-care (01) ==
LOC: JD.ED 09:21
DX: R56.9 Unspecified convulsions (principal); F17.210 Nicotine dependence, cigarettes, uncomplicated; Z79.899 Other long term (current) drug therapy
CPT/HCPCS: 36415; 80053; 80175; 80177; 80306; 83735; 85025; 96361; 96374; 96376; 99284; A9270; G0480; J2060; J7040; J7050

== ENCOUNTER 2017-11-19 11:57 | Emergency (ER) | payer MEDICAID, OTHER, SELFPAY ==
[2017-11-19 12:06] VITALS: BP 149/123
--- NOTE | 2017-11-19 12:37 | EDM.PDOC ---
ED HPI GENERAL MEDICAL PROBLEM - General Chief Complaint: Neurological Problem Stated Complaint: SEIZURE Time Seen by Provider: 11/19/17 12:13 Source of Information: Reports: Patient, Significant Other (Girlfriend) History Limitations: Reports: No Limitations - History of Present Illness INITIAL COMMENTS - FREE TEXT/NARRATIVE: The patient's girlfriend states that she and the patient were smoking in a garage, when the patient yelled out and clenched up. She helped him to the ground so that he was not injured. She states that he remained clenched up for about 2 minutes. He was then unresponsive for 3-4 minutes, and did not regain normal cognitive function for about 5 minutes. The patient states that he did not bite his tongue, and there was no urinary or fecal incontinence. The patient has a seizure disorder. He states that his last seizure was about 3 months ago, and that he has a seizure approximately 4 times year. The patient states that he is on both Keppra and Lamictal, and that he has not missed any doses recently. He reports that he has had 4-5 days of a decreased appetite, nausea and vomiting. He states that he has been sleeping well. He denies having any other undue stressors in his life. The patient told me that he had 2 shots of alcohol last night, however, told the triage nurse that he had a lot to drink last night. The triage nurse also notes that the patient has a known history of medication noncompliance The patient's Neurologist is Dr. Bunn, who the patient last saw about 2-1/ 2 months ago. His antiepileptic medication doses were adjusted at that time. The patient does not have a PCP. - Related Data Allergies Allergy/AdvReac Type Severity Reaction Status Date / Time seasonal Allergy Other Uncoded 11/19/17 12:06 Home Meds: Home Meds levETIRAcetam [Keppra] 1,000 mg PO BID #60 tablet 01/28/17 [Rx] lamoTRIgine [Lamotrigine] 150 mg PO BID 09/01/17 [History] Past Medical History Neurological History: Reports: Seizure Psychiatric History: Reports: Anxiety - Past Surgical History Musculoskeletal Surgical History: Reports: ORIF (left forearm) Social & Family History - Family History Family Medical History: Noncontributory Respiratory: Reports: COPD - Tobacco Use Smoking Status *Q: Current Every Day Smoker Years of Tobacco use: 6 Packs/Tins Daily: 0.7 Second Hand Smoke Exposure: Yes - Caffeine Use Caffeine Use: Reports: Soda - Alcohol Use Alcohol Use History: Yes Days Per Week of Alcohol Use: 4 Number of Drinks Per Day: 4 Total Drinks Per Week: 16 Date of Last Drink: 11/18/17 Time of Last Drink: 23:00 Alcohol Use Frequency: Socially - Recreational Drug Use Recreational Drug Use: Yes Drug Use in Last 12 Months: Yes Recreational Drug Type: Reports: Marijuana/Hashish (last around Aug 2017), Methamphetamine - Living Situation & Occupation Living situation: Reports: Single, Other (with friends) Occupation: Unemployed ED ROS GENERAL - Review of Systems Review Of Systems: ROS reveals no pertinent complaints other than HPI. - Physical Exam Exam: See Below Exam Limited By: No Limitations General Appearance: Alert, WD/WN, No Apparent Distress Eye Exam: Bilateral Eye: Normal Inspection Ears: Normal External Exam, Hearing Grossly Normal Nose: Normal Inspection, No Blood Throat/Mouth: Normal Inspection, Normal Lips, Normal Voice, No Airway Compromise Head Exam: Atraumatic, Normocephalic Neck: Normal Inspection, Full Range of Motion Respiratory/Chest: No Respiratory Distress, Lungs Clear, Normal Breath Sounds, No Accessory Muscle Use Cardiovascular: Normal Peripheral Pulses, Regular Rate, Rhythm, No Gallop, No JVD, No Murmur, No Rub GI/Abdominal: Normal Bowel Sounds, Soft, Non-Tender, No Organomegaly, No Distention, No Abnormal Bruit, No Mass (Male) Exam: Deferred Rectal (Males) Exam: Deferred Neuro Exam (Abbreviated): Alert, Oriented, CN II-XII Intact, Normal Cognition, No Motor/Sensory Deficits Back Exam: Normal Inspection, Full Range of Motion, NT Extremities: Normal Inspection, Normal Range of Motion, No Pedal Edema, Normal Capillary Refill, Other (Non-blanching erythema to the dorsal aspect of the patient's right hand. Nontender. The patient states that it developed yesterday. ) Psychiatric: Normal Affect Skin Exam: Warm, Dry, Intact, Normal Color, No Rash Course - Vital Signs Last Recorded V/S: Last Vital Signs Temp 36.4 C 11/19/17 12:02 Pulse 123 H 11/19/17 12:02 Resp 18 11/19/17 12:02 BP 149/123 H 11/19/17 12:02 Pulse Ox 93 L 11/19/17 12:02 - Orders/Labs/Meds Labs: Laboratory Tests 11/19/17 11/19/17 11/19/17 Range/Units 13:01 13:01 13:01 WBC 7.51 (4.23-9.07) K/mm3 RBC 4.58 L (4.63-6.08) M/mm3 Hgb 15.5 (13.7-17.5) gm/L Hct 44.8 (40.1-51.0) % MCV 97.8 H (79.0-92.2) fl MCH 33.8 H (25.7-32.2) pg MCHC 34.6 (32.2-35.5) g/dl RDW Std Deviation 44.3 H (35.1-43.9) fL Plt Count 202 (163-337) K/mm3 MPV 9.3 L (9.4-12.3) fl Neutrophils % (Manual) 76 H (40-60) % Band Neutrophils % 1 (0-10) % Lymphocytes % (Manual) 15 L (20-40) % Atypical Lymphs % 1 % Monocytes % (Manual) 7 (2-10) % Eosinophils % (Manual) 0 L (0.8-7.0) % Basophils % (Manual) 0 L (0.2-1.2) Platelet Estimate Adequate Plt Morphology Comment Normal RBC Morph Comment Normal Sodium 137 (136-145) mEq/L Potassium 2.9 L (3.5-5.1) mEq/L Chloride 87 L (98-107) mEq/L Carbon Dioxide 15 L (21-32) mEq/L Anion Gap 37.9 H (5-15) BUN 9 (7-18) mg/dL Creatinine 1.2 (0.7-1.3) mg/dL Est Cr Clr Drug Dosing 101.35 mL/min Estimated GFR (MDRD) > 60 (>60) mL/min BUN/Creatinine Ratio 7.5 L (14-18) Glucose 170 H (74-106) mg/dL Calcium 9.8 (8.5-10.1) mg/dL Phosphorus 4.8 H (2.6-4.7) mg/dL Magnesium 1.2 L (1.8-2.4) mg/dl Total Bilirubin 2.3 H (0.2-1.0) mg/dL AST 419 H (15-37) U/L ALT 220 H (16-63) U/L Alkaline Phosphatase 166 H (46-116) U/L Total Protein 8.4 H (6.4-8.2) g/dl Albumin 4.4 (3.4-5.0) g/dl Globulin 4.0 gm/dL Albumin/Globulin Ratio 1.1 (1-2) Urine Opiates Screen (NEGATIVE) Ur Buprenorphine Scrn (NEGATIVE) Ur Oxycodone Screen (NEGATIVE) Urine Methadone Screen (NEGATIVE) Ur Propoxyphene Screen (NEGATIVE) Ur Barbiturates Screen (NEGATIVE) Ur Tricyclics Screen (NEGATIVE) Ur Phencyclidine Scrn (NEGATIVE) Ur Amphetamine Screen (NEGATIVE) U Methamphetamines Scrn (NEGATIVE) U Benzodiazepines Scrn (NEGATIVE) U Cocaine Metab Screen (NEGATIVE) U Marijuana (THC) Screen (NEGATIVE) Ethyl Alcohol 0.00 (0.00) gm% 11/19/17 Range/Units 13:15 WBC (4.23-9.07) K/mm3 RBC (4.63-6.08) M/mm3 Hgb (13.7-17.5) gm/L Hct (40.1-51.0) % MCV (79.0-92.2) fl MCH (25.7-32.2) pg MCHC (32.2-35.5) g/dl RDW Std Deviation (35.1-43.9) fL Plt Count (163-337) K/mm3 MPV (9.4-12.3) fl Neutrophils % (Manual) (40-60) % Band Neutrophils % (0-10) % Lymphocytes % (Manual) (20-40) % Atypical Lymphs % % Monocytes % (Manual) (2-10) % Eosinophils % (Manual) (0.8-7.0) % Basophils % (Manual) (0.2-1.2) Platelet Estimate Plt Morphology Comment RBC Morph Comment Sodium (136-145) mEq/L Potassium (3.5-5.1) mEq/L Chloride (98-107) mEq/L Carbon Dioxide (21-32) mEq/L Anion Gap (5-15) BUN (7-18) mg/dL Creatinine (0.7-1.3) mg/dL Est Cr Clr Drug Dosing mL/min Estimated GFR (MDRD) (>60) mL/min BUN/Creatinine Ratio (14-18) Glucose (74-106) mg/dL Calcium (8.5-10.1) mg/dL Phosphorus (2.6-4.7) mg/dL Magnesium (1.8-2.4) mg/dl Total Bilirubin (0.2-1.0) mg/dL AST (15-37) U/L ALT (16-63) U/L Alkaline Phosphatase (46-116) U/L Total Protein (6.4-8.2) g/dl Albumin (3.4-5.0) g/dl Globulin gm/dL Albumin/Globulin Ratio (1-2) Urine Opiates Screen Negative (NEGATIVE) Ur Buprenorphine Scrn Negative (NEGATIVE) Ur Oxycodone Screen Negative (NEGATIVE) Urine Methadone Screen Negative (NEGATIVE) Ur Propoxyphene Screen Negative (NEGATIVE) Ur Barbiturates Screen Negative (NEGATIVE) Ur Tricyclics Screen Negative (NEGATIVE) Ur Phencyclidine Scrn Negative (NEGATIVE) Ur Amphetamine Screen Negative (NEGATIVE) U Methamphetamines Scrn Negative (NEGATIVE) U Benzodiazepines Scrn Negative (NEGATIVE) U Cocaine Metab Screen Negative (NEGATIVE) U Marijuana (THC) Screen Negative (NEGATIVE) Ethyl Alcohol (0.00) gm% Meds: Medications Discontinued Medications Generic Name Dose Route Start Last Admin Trade Name Freq PRN Reason Stop Dose Admin Magnesium Sulfate 2 gm/ Premix 50 mls @ 50 mls/hr 11/19/17 13:40 11/19/17 13: 58 IV 11/19/17 14:39 50 mls/hr ONETIME ONE Administration Sodium Chloride 1,000 mls @ 999 mls/hr 11/19/17 13:40 11/19/17 13:55 Normal Saline IV 11/19/17 14:40 999 mls/hr ONETIME ONE Administration Lorazepam Confirm 11/19/17 12:55 11/19/17 13:00 Ativan Administered 11/19/17 12:56 Not Given Dose 2 mg .ROUTE .STK-MED ONE Lorazepam 2 mg 11/19/17 12:51 11/19/17 12:53 Ativan IM 11/19/17 12:52 2 mg ONETIME STA Administration - Re-Assessments/Exams Free Text/Narrative Re-Assessment/Exam: 11/19/17 12:51 The patient is having a seizure. 2 mg Ativan IM has been ordered. Of note, when seizing, the patient flails his arms around a lot. I suspect that the erythema to the dorsum of his right hand is an ecchymosis from an earlier seizure that the patient did not know about. 11/19/17 14:17 The patient's potassium returned low at 2.9, with a magnesium low at 1.2. A 2 g magnesium rider was ordered. The patient's bicarbonate returned low at 15, with an anion gap significantly elevated at 37.9. 1 L normal saline was ordered. The patient's LFTs are abnormal. His bilirubin is elevated at 2.3. His AST/ALT are elevated at 419/220, and his alkaline phosphatase is elevated at 166. It is unclear if his LFTs are elevated due to his recent gastrointestinal illness, one or both of his antiepileptic medications, or recreational drug use. A urine drug screen was run, and has returned negative. The above was discussed with Dr. Frausto at 14:14, and he has agreed to admit the patient to correct his electronic abnormalities. 11/19/17 14:25 The above plan was discussed with the patient and his girlfriend. The patient does not want to be admitted. He stated that "I'll just walk in another day". I explained that the electrolyte abnormalities that he has are significant, and need correction immediately. The patient did not seem to care - he reiterated that he will simply come back some other day. I informed the patient that he will need to sign AMA. He said he will. 11/19/17 14:51 Notified by the patient's nurse that the patient is willing to stay in the ED to finish his IV magnesium, however, he then wants to leave. Under these circumstances, I will still have him sign AMA. Departure - Departure Time of Disposition: 14:17 Disposition: Against Medical Advice 07 Condition: Fair Clinical Impression: Epileptic seizure, Hypokalemia, Hypomagnesemia, High anion gap metabolic acidosis, Abnormal LFTs - Discharge Information Instructions: Hypomagnesemia, Hypokalemia, Seizure, Adult, [id number] Referrals: Zain Falcon MD [Physician] - Forms: ED Department Discharge Additional Instructions: You were seen in the emergency room after having a seizure at home. You suffered an additional seizure in the ER. Workup in the ER included blood work and a urine drug screen. Your workup found that you have significantly low potassium, significantly low magnesium, an anion gap metabolic acidosis, and elevated liver function tests. It was strongly recommended that you be admitted to the hospital to receive IV fluids to correct your lab abnormalities, however, you have decided to leave AGAINST MEDICAL ADVICE. If you change your mind, please do not hesitate to return to the ER. Follow-up with your Neurologist, Dr. Bunn, at the next available appointment.
[2017-11-19] MEDS ORDERED: LORazepam 2 MG/ML SDV IM STA (12:51)
[2017-11-19] MEDS ORDERED: LORazepam 2 MG/ML SDV ONE (12:55)
[2017-11-19] MEDS ORDERED: Magnesium Sulfate/Water 2 GM in Premix Bag 1 BAG IV ONE (13:40)
[2017-11-19] MEDS ORDERED: Sodium Chloride 0.9% 1,000 ML IV ONE (13:40)
== END 2017-11-19 15:35 | disposition left against medical advice (07) ==
LOC: JD.ED 11:57
DX: G40.909 Epilepsy, unspecified, not intractable, without status epilepticus (principal); E87.6 Hypokalemia; E83.42 Hypomagnesemia; E87.2 Acidosis; R79.89 Other specified abnormal findings of blood chemistry; F17.210 Nicotine dependence, cigarettes, uncomplicated
CPT/HCPCS: 36415; 80053; 80306; 83735; 84100; 85025; 96361; 96365; 96372; 99284; G0480; J2060; J7040; J3475

== ENCOUNTER 2017-12-16 15:27 | Inpatient (IN) | payer MEDICAID ==
[2017-12-16] MEDS ORDERED: LORazepam 2 MG/ML MDV IVPUSH STA (15:57)
--- NOTE | 2017-12-16 16:18 | EDM.PDOC ---
ED HPI GENERAL MEDICAL PROBLEM - General Chief Complaint: Neurological Problem Stated Complaint: JAZ Time Seen by Provider: 12/16/17 15:38 Source of Information: Reports: Patient, Old Records, Significant Other ( Girlfriend) History Limitations: Reports: Altered Mental Status - History of Present Illness INITIAL COMMENTS - FREE TEXT/NARRATIVE: The patient's roommate states that she believes he had an unwitnessed seizure, as she found him confused around 14:30 this afternoon. He then had a witnessed seizure, lasting approximately 50 seconds, at 14:50. He was then postictal for approximately 10-15 minutes. The patient denies biting his tongue or having either urinary or fecal incontinence, however, he reports having a headache, and wonders if he may have hit his head. The patient states that he takes both Keppra and Lamictal twice a day, with his most recent doses this morning. He denies having skipped any doses recently. I contacted the [facility], who tells me that the patient filled his Keppra prescription for 60 tablets on 11/14/2017, and his Lamictal prescription for 60 tablets on 12/05/2017, however, the last time he filled either of these prescriptions was in June 2017. The patient denies any recent illnesses. He denies recent sleep deprivation. He denies use of recreational drugs. He states that he drank a few shots and 2 beers this past 12/13/2017. The patient's roommate told me (away from the patient) that he drinks daily, but tries to hide it. The patient states that he is under the care of the Neurologist Dr. Bunn, and that he last saw him a few months ago. The patient was seen by me in this ED on 11/19/2017, also for seizures. His CBC was unremarkable, however, his CMP revealed an anion gap metabolic acidosis, with a bicarbonate depressed at 15, and an anion gap elevated at 37.9. His potassium was depressed at 2.9 with a magnesium depressed at 1.2. His phosphorus was elevated at 4.8. His glucose was elevated at 170. His AST/ALT were elevated at 419/220, with a total bilirubin elevated at 2.3 and alkaline phosphatase elevated 166. The remainder of his workup was unremarkable. A 2 g magnesium rider was given to the patient before he left AMA. He states at this time that he did not follow-up. Back Pain Score (Numeric/FACES): 5 - Related Data Allergies Allergy/AdvReac Type Severity Reaction Status Date / Time seasonal Allergy Other Uncoded 12/16/17 15:36 Home Meds: Home Meds levETIRAcetam [Keppra] 1,000 mg PO BID #60 tablet 01/28/17 [Rx] lamoTRIgine [Lamotrigine] 150 mg PO BID 09/01/17 [History] Past Medical History Neurological History: Reports: Seizure Psychiatric History: Reports: Anxiety - Past Surgical History Musculoskeletal Surgical History: Reports: ORIF (left forearm) Social & Family History - Family History Family Medical History: Noncontributory Respiratory: Reports: COPD - Tobacco Use Smoking Status *Q: Current Every Day Smoker Years of Tobacco use: 6 Packs/Tins Daily: 0.8 - Caffeine Use Caffeine Use: Reports: Soda - Alcohol Use Alcohol Use History: Yes Days Per Week of Alcohol Use: 4 Number of Drinks Per Day: 4 Total Drinks Per Week: 16 - Recreational Drug Use Recreational Drug Use: Yes Drug Use in Last 12 Months: Yes Recreational Drug Type: Reports: Marijuana/Hashish (last around Aug 2017), Methamphetamine - Living Situation & Occupation Living situation: Reports: Single, Other (with friends) Occupation: Unemployed ED ROS GENERAL - Review of Systems Review Of Systems: ROS reveals no pertinent complaints other than HPI. - Physical Exam Exam: See Below Exam Limited By: No Limitations General Appearance: Alert, Mild Distress (Appears tremulous, weak), Thin Eye Exam: Bilateral Eye: Normal Inspection Ears: Normal External Exam, Hearing Grossly Normal Nose: Normal Inspection, No Blood Throat/Mouth: Normal Inspection, Normal Lips, Normal Voice, No Airway Compromise Head Exam: Atraumatic, Normocephalic Neck: Normal Inspection, Full Range of Motion Respiratory/Chest: No Respiratory Distress, Lungs Clear, Normal Breath Sounds, No Accessory Muscle Use Cardiovascular: Normal Peripheral Pulses, No Edema, No Gallop, No JVD, No Murmur , No Rub, Tachycardia (regular) GI/Abdominal: Normal Bowel Sounds, Soft, Non-Tender, No Organomegaly, No Distention, No Abnormal Bruit, No Mass (Male) Exam: Deferred Rectal (Males) Exam: Deferred Neuro Exam (Abbreviated): Alert, No Motor/Sensory Deficits, Confused Back Exam: Normal Inspection, Full Range of Motion, NT Extremities: Normal Inspection, Normal Range of Motion, No Pedal Edema, Normal Capillary Refill Psychiatric: Normal Affect Skin Exam: Warm, Dry, Intact, Normal Color, No Rash Course - Vital Signs Last Recorded V/S: Last Vital Signs Temp 36.5 C 12/17/17 16:00 Pulse 95 12/17/17 16:00 Resp 18 12/17/17 16:00 BP 137/95 H 12/17/17 16:00 Pulse Ox 98 12/17/17 16:00 - Orders/Labs/Meds Orders: Active Orders 24 hr Category Date Time Status Patient Status [ADT] Routine ADT 12/16/17 21:29 Active Folic Acid Med 12/16/17 21:45 Active 1 mg PO DAILY Haloperidol Lactate [Haldol] Med 12/16/17 21:35 Active 1 mg IVPUSH Q6H PRN LORazepam 20 mg Med 12/16/17 20:45 Active Dextrose 5% in Water 90 ml IV ASDIRECTED LORazepam [Ativan] Med 12/16/17 21:35 Active 2 mg IVPUSH Q4H PRN Medication Orders Albuterol/Ipratropium (Duoneb 3.0-0.5 Mg/3 Ml) 3 ml NEB QID PRN PRN Reason: Shortness of Breath Chlordiazepoxide HCl (Librium) 25 mg PO TID PRN PRN Reason: Anxiety Folic Acid (Folic Acid) 1 mg PO DAILY NATHANAEL Last Admin: 12/17/17 09:12 Dose: 1 mg Admin: 12/16/17 22:13 Dose: 1 mg Haloperidol Lactate (Haldol) 1 mg IVPUSH Q6H PRN PRN Reason: restlessness Lorazepam 20 mg/ Dextrose/ (Water) 100 mls @ 4 mls/hr IV ASDIRECTED NATHANAEL Last Infusion: 12/17/17 07:30 Dose: 0 mls/hr Infusion: 12/17/17 05:10 Dose: 1 mls/hr Admin: 12/16/17 22:13 Dose: 2 mls/hr Levetiracetam (Keppra) 1,000 mg PO BID NATHANAEL Lorazepam (Ativan) 2 mg IVPUSH Q4H PRN PRN Reason: Anxiety Metoprolol Tartrate (Lopressor) 5 mg IVPUSH Q4H PRN PRN Reason: Tachycardia Nicotine (Habitrol) 21 mg TRDERM DAILY [facility] Last Admin: 12/17/17 09:12 Dose: 21 mg Admin: 12/16/17 22:15 Dose: Not Given Potassium Chloride (Potassium Chloride) 40 meq PO BID [facility] Stop: 12/20/17 09:01 Quetiapine Fumarate (Seroquel) 50 mg PO BEDTIME NATHANAEL Thiamine HCl (Vitamin B-1) 100 mg PO BEDTIME NATHANAEL Labs: Laboratory Tests 12/16/17 12/16/17 12/16/17 Range/Units 16:00 16:00 17:49 WBC 9.21 H (4.23-9.07) K/mm3 RBC 4.10 L (4.63-6.08) M/mm3 Hgb 14.0 (13.7-17.5) gm/L Hct 39.9 L (40.1-51.0) % MCV 97.3 H (79.0-92.2) fl MCH 34.1 H (25.7-32.2) pg MCHC 35.1 (32.2-35.5) g/dl RDW Std Deviation 41.9 (35.1-43.9) fL Plt Count 176 (163-337) K/mm3 MPV 9.6 (9.4-12.3) fl Neutrophils % (Manual) 90 H (40-60) % Band Neutrophils % 0 (0-10) % Lymphocytes % (Manual) 9 L (20-40) % Atypical Lymphs % 0 % Monocytes % (Manual) 1 L (2-10) % Eosinophils % (Manual) 0 L (0.8-7.0) % Basophils % (Manual) 0 L (0.2-1.2) Toxic Granulation 3+ marked Platelet Estimate Adequate Plt Morphology Comment Normal RBC Morph Comment Normal Sodium 134 L (136-145) mEq/L Potassium 3.4 L (3.5-5.1) mEq/L Chloride 89 L (98-107) mEq/L Carbon Dioxide 24 (21-32) mEq/L Anion Gap 24.4 H (5-15) BUN 12 (7-18) mg/dL Creatinine 1.0 (0.7-1.3) mg/dL Est Cr Clr Drug Dosing 132.68 mL/min Estimated GFR (MDRD) > 60 (>60) mL/min BUN/Creatinine Ratio 12.0 L (14-18) Glucose 204 H (74-106) mg/dL Calcium 10.3 H (8.5-10.1) mg/dL Phosphorus 3.2 (2.6-4.7) mg/dL Magnesium 1.3 L (1.8-2.4) mg/dl Total Bilirubin 2.6 H (0.2-1.0) mg/dL AST 284 H (15-37) U/L ALT 140 H (16-63) U/L Alkaline Phosphatase 118 H (46-116) U/L Creatine Kinase 336 H (39-308) U/L Total Protein 8.4 H (6.4-8.2) g/dl Albumin 4.6 (3.4-5.0) g/dl Globulin 3.8 gm/dL Albumin/Globulin Ratio 1.2 (1-2) Urine Opiates Screen Negative (NEGATIVE) Ur Buprenorphine Scrn Negative (NEGATIVE) Ur Oxycodone Screen Negative (NEGATIVE) Urine Methadone Screen Negative (NEGATIVE) Ur Propoxyphene Screen Negative (NEGATIVE) Ur Barbiturates Screen Presumptive positive H (NEGATIVE) Ur Tricyclics Screen Negative (NEGATIVE) Ur Phencyclidine Scrn Negative (NEGATIVE) Ur Amphetamine Screen Negative (NEGATIVE) U Methamphetamines Scrn Negative (NEGATIVE) U Benzodiazepines Scrn Presumptive positive H (NEGATIVE) U Cocaine Metab Screen Negative (NEGATIVE) U Marijuana (THC) Screen Negative (NEGATIVE) Ethyl Alcohol 0.00 (0.00) gm% Meds: Medications Generic Name Dose Route Start Last Admin Trade Name Freq PRN Reason Stop Dose Admin Albuterol/Ipratropium 3 ml 12/17/17 09:45 Duoneb 3.0-0.5 Mg/3 Ml NEB QID PRN Shortness of Breath Chlordiazepoxide HCl 25 mg 12/17/17 09:45 Librium PO TID PRN Anxiety Folic Acid 1 mg 12/16/17 21:45 12/17/17 09:12 Folic Acid PO 1 mg DAILY NATHANAEL Administration Haloperidol Lactate 1 mg 12/16/17 21:35 Haldol IVPUSH Q6H PRN restlessness Lorazepam 20 mg/ Dextrose/ 100 mls @ 4 mls/hr 12/16/17 20:45 12/17/17 07:30 Water IV 0 mls/hr ASDIRECTED NATHANAEL Infusion Levetiracetam 1,000 mg 12/17/17 21:00 Keppra PO BID NATHANAEL Lorazepam 2 mg 12/16/17 21:35 Ativan IVPUSH Q4H PRN Anxiety Metoprolol Tartrate 5 mg 12/16/17 22:26 Lopressor IVPUSH Q4H PRN Tachycardia Nicotine 21 mg 12/16/17 21:45 12/17/17 09:12 Habitrol TRDERM 21 mg DAILY NATHANAEL Administration Potassium Chloride 40 meq 12/17/17 21:00 Potassium Chloride PO 12/20/17 09:01 BID NATHANAEL Quetiapine Fumarate 50 mg 12/17/17 21:00 Seroquel PO BEDTIME NATHANAEL Thiamine HCl 100 mg 12/17/17 21:00 Vitamin B-1 PO BEDTIME NATHANAEL Discontinued Medications Generic Name Dose Route Start Last Admin Trade Name Freq PRN Reason Stop Dose Admin Chlordiazepoxide HCl 25 mg 12/17/17 09:00 12/17/17 09:12 Librium PO 25 mg TID NATHANAEL Administration Magnesium Sulfate 2 gm/ Premix 50 mls @ 50 mls/hr 12/16/17 17:23 12/16/17 17: 44 IV 12/16/17 18:22 50 mls/hr ONETIME ONE Administration Sodium Chloride 1,000 mls @ 999 mls/hr 12/16/17 17:24 12/16/17 17:42 Normal Saline IV 12/16/17 18:24 999 mls/hr ONETIME ONE Administration Lorazepam 20 mg/ Sodium 100 mls @ 4 mls/hr 12/16/17 20:45 Chloride IV ASDIRECTED NATHANAEL Sodium Chloride 1,000 mls @ 75 mls/hr 12/16/17 21:45 12/16/17 22:14 Normal Saline IV 75 mls/hr ASDIRECTED NATHANAEL Administration Lorazepam 2 mg 12/16/17 15:57 12/16/17 16:02 Ativan IVPUSH 12/16/17 15:58 2 mg ONETIME STA Administration Lorazepam 0 mg 12/16/17 20:07 12/16/17 20:24 Ativan IVPUSH 12/16/17 20:08 1 mg ONETIME ONE Administration Protocol Thiamine HCl 100 mg 12/16/17 21:45 12/17/17 09:12 Vitamin B-1 IV 100 mg DAILY NATHANAEL Administration - Re-Assessments/Exams Free Text/Narrative Re-Assessment/Exam: 12/16/17 16:55 CT of the head without contrast is read by Dr. Mckeon as: 1. No abnormality is identified on noncontrast head CT study. No significant change is seen from prior intracranial imaging exams. 12/16/17 18:17 The patient has not yet provided a urine sample for the urine drug screen. 12/16/17 18:45 The patient's urine drug screen is positive for barbiturates and benzodiazepines. The benzodiazepines are likely the Ativan that he was given earlier, but I do not have an explanation for the barbiturates. 12/16/17 18:53 The patient does not have an explanation for the barbiturates found in his urine. I recommended to the patient that he be admitted to the hospital, as I believe he has too many metabolic derangements to safely go home. The patient stated that he would prefer to go home. I explained that I feel that his symptoms are due to excessive alcohol consumption, and that he needs professional help. He stated that he would prefer to self-treat. I asked him if he has ever been in treatment in the past, and he responded that he was in inpatient treatment for substance abuse for 5 months, 2-3 years ago. The patient is still confused. Initially this could be explained as his being postictal, however, it has persisted. He correctly identifies that he is at [facility], but he states that it is October 2014, that the season is idalia, and he cannot even guess at what day it is. Further, the patient's roommate states that earlier the patient reported that somebody had come into the room that simply was not true, suggesting visual hallucinations. His temperature is now 100.4, with persistent tachycardia, tachypnea, and elevated blood pressure. He vomited shortly after arrival to the ED. He is hypomagnesemic. It is not clear to me if the patient has a genuine seizure disorder, or if his seizures are alcohol-related. At this time, the patient meets nearly all criterion for delirium tremens. While the patient states that he wants to go home, I do not believe that he is decisional, and am recommending admission to the hospital with a medical hold. 12/16/17 19:[address] Hunt at 18:58. She is recommending the patient be transferred to [place], as this will make it much more difficult for the patient to simply get up and leave. 12/16/17 19:21 Case discussed with [facility] [place] [facility] at 19:04. Case then discussed with Dr. Wolff, Hospitalist at [facility], at 19 :15, who does not feel that making it physically difficult for the patient to leave is an adequate reason to transfer, and therefore refused transfer. 12/16/17 19:[address] Hunt at 19:29. She accepts the patient for admission to the ICU, however, she notes that the patient will require a sitter, and if one is not available, then the patient will need to stay in the ED until one can be found. 12/16/17 20:08 I have filled out the medical hold paperwork, which has been notarized by Toyin Neri. The agile test lead will be here shortly to sign the paperwork. 12/16/17 20:37 The patient's grandmother is here in the ED, and tells me that the patient does in fact have a long history of heavy drinking, and was told a couple of years ago that he needs to stop drinking in order to prevent severe liver disease. She also states that the patient's roommates are all heavy, heavy, heavy drinkers. She states that the patient has had seizures for about 2 years. She dates that the patient told her that he recently "let up" on his drinking. As above, I strongly suspect that the patient's seizures are alcohol-related, and that he likely tried to self-restrict his drinking recently, and that what we are witnessing is alcohol withdrawal. Departure - Departure Time of Disposition: :33 Disposition: Admitted As Inpatient 65 Condition: Serious Clinical Impression: Delirium tremens - Discharge Information - My Orders Last 24 Hours: My Active Orders 12/16/17 21:29 Patient Status [ADT] Routine - Assessment/Plan Last 24 Hours: My Active Orders 12/16/17 21:29 Patient Status [ADT] Routine
--- NOTE | 2017-12-16 16:49 | CT ---
Head CT Technique: Multiple axial sections through the brain were obtained. Intravenous contrast was not utilized. Comparison: Prior head CT study of 06/27/15 and MRI brain of 07/03/15. Findings: Ventricles along with basal cisterns and sulci over the convexities are within normal limits for the patient's age. No abnormal parenchymal densities are seen. No evidence of intracranial hemorrhage. No midline shift or mass effect is seen. Visualized sinuses are clear. No acute calvarial abnormality is seen. Impression: 1. No abnormality is identified on noncontrast head CT study. No significant change is seen from prior intracranial imaging exams. Diagnostic code #1
[2017-12-16] MEDS ORDERED: Magnesium Sulfate/Water 2 GM in Premix Bag 1 BAG IV ONE (17:23)
[2017-12-16] MEDS ORDERED: Sodium Chloride 0.9% 1,000 ML IV ONE (17:24)
[2017-12-16] MEDS ORDERED: LORazepam 2 MG/ML MDV IVPUSH ONE (20:07)
[2017-12-16] MEDS ORDERED: LORazepam 20 MG in Dextrose 5% in Water 90 ML IV SCH ×2 (20:45)
[2017-12-16] MEDS ORDERED: Haloperidol Lactate 5 MG/ML SDV IVPUSH PRN (21:35)
[2017-12-16] MEDS ORDERED: LORazepam 2 MG/ML MDV IVPUSH PRN (21:35)
[2017-12-16] MEDS ORDERED: Sodium Chloride 0.9% 1,000 ML IV SCH (21:45)
[2017-12-16] MEDS: Thiamine 200 MG/2 ML MDV IV SCH (22:13)
[2017-12-16] MEDS: Folic Acid 1 MG Tab PO SCH (22:13)
[2017-12-16] MEDS: Nicotine 21 MG/24 Hr Patch TRDERM SCH (22:15)
[2017-12-16] MEDS ORDERED: Metoprolol Tartrate 5 MG/5 ML SDV IVPUSH PRN (22:26)
[2017-12-17] MEDS ORDERED: chlordiazePOXIDE 25 MG Cap PO SCH (09:00)
[2017-12-17] MEDS: Thiamine 200 MG/2 ML MDV IV SCH (09:12)
[2017-12-17] MEDS: Folic Acid 1 MG Tab PO SCH (09:12)
[2017-12-17] MEDS: Nicotine 21 MG/24 Hr Patch TRDERM SCH (09:12)
--- NOTE | 2017-12-17 09:42 | PCM.HP ---
H&P History of Present Illness - General Date of Service: 12/16/17 Source of Information: Provider History Limitations: Reports: No Limitations - History of Present Illness Initial Comments - Free Text/Narative: 22 year old male with significant substance abuse history including alcohol, methamphetamine and marijuana/hashish. He had a witnessed seizure as described by one oh is roommates. He has been on seizure medication for 2 years and only recently refilled his prescriptions after not filling either one since June 2017. He has had apparent may have had visual hallucinations before presenting to the ED. He will be admitted to the ICU for detox from ETOH, it is suspected that he has a history of alcohol withdrawal seizures. A psychiatric and substance abuse consult will be placed. Onset of Symptoms: Reports: Sudden Symptom Onset Date: 12/16/17 Duration of Symptoms: Reports: Hour(s):, Getting Worse Location: Reports: Generalized Severity: Moderate Improves with: Reports: Medication Worsens with: Reports: Other (alcohol) Associated Symptoms: Reports: Confusion Back Pain Score (Numeric/FACES): 5 - Related Data Allergies/Adverse Reactions: Allergies Allergy/AdvReac Type Severity Reaction Status Date / Time seasonal Allergy Other Uncoded 12/16/17 15:36 Home Medications: Home Meds levETIRAcetam [Keppra] 1,000 mg PO BID #60 tablet 01/28/17 [Rx] lamoTRIgine [Lamotrigine] 150 mg PO BID 09/01/17 [History] Past Medical History HEENT History: Reports: Other (See Below) Other HEENT History: missing tooth. Gastrointestinal History: Reports: Gastritis, GERD Musculoskeletal History: Reports: Fracture Other Musculoskeletal History: broke both arms, ankle Neurological History: Reports: Seizure Psychiatric History: Reports: Anxiety - Past Surgical History Musculoskeletal Surgical History: Reports: ORIF Social & Family History - Family History Family Medical History: Noncontributory Respiratory: Reports: COPD - Tobacco Use Smoking Status *Q: Current Every Day Smoker Years of Tobacco use: 5 Packs/Tins Daily: 1 Second Hand Smoke Exposure: Yes - Caffeine Use Caffeine Use: Reports: Energy Drinks, Soda - Alcohol Use Days Per Week of Alcohol Use: 4 Number of Drinks Per Day: 4 Total Drinks Per Week: 16 - Recreational Drug Use Recreational Drug Use: Yes Drug Use in Last 12 Months: Yes Recreational Drug Type: Reports: Marijuana/Hashish, Methamphetamine Recreational Drug Use Frequency: Not Used In Over 4 Months - Living Situation & Occupation Living situation: Reports: Single, Other (with friends) Occupation: Unemployed H&P Review of Systems - Review of Systems: Review Of Systems: See Below General: Reports: No Symptoms HEENT: Reports: No Symptoms Pulmonary: Reports: No Symptoms Cardiovascular: Reports: No Symptoms Gastrointestinal: Reports: No Symptoms Genitourinary: Reports: No Symptoms Musculoskeletal: Reports: No Symptoms Skin: Reports: No Symptoms Psychiatric: Reports: No Symptoms Neurological: Reports: No Symptoms Hematologic/Lymphatic: Reports: No Symptoms Immunologic: Reports: No Symptoms Exam - Exam Exam: See Below - Vital Signs Vital Signs: Last Vital Signs Temp 36.4 C 12/17/17 08:00 Pulse 88 12/17/17 08:00 Resp 16 12/17/17 08:00 BP 136/93 H 12/17/17 08:00 Pulse Ox 98 12/17/17 08:00 Weight: 72.665 kg - Exam Quality Assessment: Supplemental Oxygen, DVT Prophylaxis General: Alert, Oriented, Cooperative HEENT: Conjunctiva Clear, Hearing Intact, Nares Patent, Normal Nasal Septum, Pupils Equal, Pupils Reactive, PERRLA Neck: Supple, Trachea Midline Lungs: Normal Respiratory Effort Cardiovascular: Regular Rate, Regular Rhythm GI/Abdominal Exam: Normal Bowel Sounds, Soft, Non-Tender, No Organomegaly, No Distention (Male) Exam: Deferred Rectal (Males) Exam: Deferred Back Exam: Normal Inspection Extremities: Normal Inspection, Normal Range of Motion, Non-Tender, No Pedal Edema Skin: Warm Neurological: Cranial Nerves Intact Neuro Extensive - Mental Status: Alert Neuro Extensive - Motor, Sensory, Reflexes: CN II-XII Intact Psychiatric: Alert, Anxious - Patient Data Lab Results Last 24 hrs: Laboratory Results - last 24 hr 12/17/17 12/17/17 Range/Units 05:07 05:07 WBC 7.69 (4.23-9.07) K/mm3 RBC 3.79 L (4.63-6.08) M/mm3 Hgb 13.2 L (13.7-17.5) gm/L Hct 37.8 L (40.1-51.0) % MCV 99.7 H (79.0-92.2) fl MCH 34.8 H (25.7-32.2) pg MCHC 34.9 (32.2-35.5) g/dl RDW Std Deviation 43.8 (35.1-43.9) fL Plt Count 160 L (163-337) K/mm3 MPV 10.4 (9.4-12.3) fl Neut % (Auto) 78.2 H (34.0-67.9) % Lymph % (Auto) 11.7 L (21.8-53.1) % Davidson % (Auto) 9.6 (5.3-12.2) % Eos % (Auto) 0.3 L (0.8-7.0) Baso % (Auto) 0.1 (0.1-1.2) % Neut # (Auto) 6.01 H (1.78-5.38) K/mm3 Lymph # (Auto) 0.90 L (1.32-3.57) K/mm3 Davidson # (Auto) 0.74 (0.30-0.82) K/mm3 Eos # (Auto) 0.02 L (0.04-0.54) K/mm3 Baso # (Auto) 0.01 (0.01-0.08) K/mm3 Sodium 137 (136-145) mEq/L Potassium 3.0 L (3.5-5.1) mEq/L Chloride 95 L (98-107) mEq/L Carbon Dioxide 28 (21-32) mEq/L Anion Gap 17.0 H (5-15) BUN 7 (7-18) mg/dL Creatinine 0.7 (0.7-1.3) mg/dL Est Cr Clr Drug Dosing 168.69 mL/min Estimated GFR (MDRD) > 60 (>60) mL/min BUN/Creatinine Ratio 10.0 L (14-18) Glucose 87 (74-106) mg/dL Calcium 9.5 (8.5-10.1) mg/dL Magnesium 2.1 (1.8-2.4) mg/dl Result Diagrams: 12/17/17 05:07 12/17/17 05:07 *Q Meaningful Use (ADM) - VTE *Q VTE Criteria *Q: - Stroke *Q Stroke Criteria *Q: - AMI *Q AMI Criteria *Q: - Problem List (1) Delirium tremens SNOMED Code(s): 4889405 ICD Code: F10.231 - ALCOHOL DEPENDENCE WITH WITHDRAWAL DELIRIUM Status: Acute Current Visit: Yes (2) Abnormal LFTs SNOMED Code(s): 912126143 ICD Code: R79.89 - OTHER SPECIFIED ABNORMAL FINDINGS OF BLOOD CHEMISTRY Status: Acute Current Visit: No (3) Anxiety SNOMED Code(s): 73585615 ICD Code: F41.9 - ANXIETY DISORDER, UNSPECIFIED Status: Acute Current Visit: No (4) Epileptic seizure SNOMED Code(s): 01175547 ICD Code: G40.909 - EPILEPSY, UNSP, NOT INTRACTABLE, WITHOUT STATUS EPILEPTICUS Status: Acute Current Visit: No (5) High anion gap metabolic acidosis SNOMED Code(s): 04685860 ICD Code: E87.2 - ACIDOSIS Status: Acute Current Visit: No (6) Hypokalemia SNOMED Code(s): 03298883 ICD Code: E87.6 - HYPOKALEMIA Status: Acute Current Visit: No Problem List Initiated/Reviewed/Updated: Yes Orders Last 24hrs: Active Orders 24 hr Category Date Time Status Aspiration Precautions [RC] ASDIRECTED Care 12/16/17 21:45 Active CIWAA Assessment [RC] Q1HR Care 12/16/17 21:45 Active Notify Provider Consults [RC] ASDIRECTED Care 12/16/17 21:46 Active Consult for Substance Abuse [CONS] Routine Cons 12/16/17 21:46 Active Consult to Physician [CONS] Routine Cons 12/16/17 21:46 Active Clear Liquid Diet [DIET] Diet 12/17/17 Breakfast Active KEPPRA [REF] Routine Lab 12/17/17 11:00 Ordered Metoprolol Tartrate [Lopressor] Med 12/16/17 22:26 Active 5 mg IVPUSH Q4H PRN chlordiazePOXIDE [Librium] Med 12/17/17 09:00 Active 25 mg PO TID One To One Therapy [BH] Routine Oth 12/16/17 23:17 Ordered Seizure Precautions [OM.PC] Routine Oth 12/16/17 21:45 Ordered Code Status [Resuscitation Status] Stat Resus Stat 12/16/17 21:48 Ordered Medication Orders Chlordiazepoxide HCl (Librium) 25 mg PO TID [facility] Last Admin: 12/17/17 09:12 Dose: 25 mg Folic Acid (Folic Acid) 1 mg PO DAILY NATHANAEL Last Admin: 12/17/17 09:12 Dose: 1 mg Admin: 12/16/17 22:13 Dose: 1 mg Haloperidol Lactate (Haldol) 1 mg IVPUSH Q6H PRN PRN Reason: restlessness Lorazepam 20 mg/ Dextrose/ (Water) 100 mls @ 4 mls/hr IV ASDIRECTED [facility] Last Infusion: 12/17/17 07:30 Dose: 0 mls/hr Infusion: 12/17/17 05:10 Dose: 1 mls/hr Admin: 12/16/17 22:13 Dose: 2 mls/hr Lorazepam (Ativan) 2 mg IVPUSH Q4H PRN PRN Reason: Anxiety Metoprolol Tartrate (Lopressor) 5 mg IVPUSH Q4H PRN PRN Reason: Tachycardia Nicotine (Habitrol) 21 mg TRDERM DAILY [facility] Last Admin: 12/17/17 09:12 Dose: 21 mg Admin: 12/16/17 22:15 Dose: Not Given Thiamine HCl (Vitamin B-1) 100 mg IV DAILY [facility] Last Admin: 12/17/17 09:12 Dose: 100 mg Admin: 12/16/17 22:13 Dose: 100 mg Assessment/Plan Comment:: Impression: Alcohol withdrawal seizures cf DTs History of seizures, unspecified Polysubstance abuse (ETOH, marijuana, hashish) Tobacco dependence Plan: CIWA protocol Benzodiazepines scheduled/prn IVF MVI, Thiamine, Folic acid Aspiration/Sz precautions SA/Psych consult Consult PETTY re: inpatient rehab DVT/GI prophylaxis
--- NOTE | 2017-12-17 09:42 | PCM.PN ---
- General Info Date of Service: 12/17/17 Functional Status: Reports: Tolerating Diet - Review of Systems General: Reports: No Symptoms HEENT: Reports: No Symptoms Pulmonary: Reports: No Symptoms Cardiovascular: Reports: No Symptoms Gastrointestinal: Reports: No Symptoms Genitourinary: Reports: No Symptoms Musculoskeletal: Reports: No Symptoms Skin: Reports: No Symptoms Neurological: Reports: No Symptoms Psychiatric: Reports: Confusion - Patient Data Vitals - Most Recent: Last Vital Signs Temp 36.4 C 12/17/17 08:00 Pulse 88 12/17/17 08:00 Resp 16 12/17/17 08:00 BP 136/93 H 12/17/17 08:00 Pulse Ox 98 12/17/17 08:00 Weight - Most Recent: 72.665 kg I&O - Last 24 Hours: Intake & Output 12/16/17 12/17/17 12/17/17 22:59 06:59 14:59 Intake Total 690 Output Total 1450 Balance -760 Lab Results Last 24 Hours: Laboratory Results - last 24 hr 12/17/17 12/17/17 Range/Units 05:07 05:07 WBC 7.69 (4.23-9.07) K/mm3 RBC 3.79 L (4.63-6.08) M/mm3 Hgb 13.2 L (13.7-17.5) gm/L Hct 37.8 L (40.1-51.0) % MCV 99.7 H (79.0-92.2) fl MCH 34.8 H (25.7-32.2) pg MCHC 34.9 (32.2-35.5) g/dl RDW Std Deviation 43.8 (35.1-43.9) fL Plt Count 160 L (163-337) K/mm3 MPV 10.4 (9.4-12.3) fl Neut % (Auto) 78.2 H (34.0-67.9) % Lymph % (Auto) 11.7 L (21.8-53.1) % [place] % (Auto) 9.6 (5.3-12.2) % Eos % (Auto) 0.3 L (0.8-7.0) Baso % (Auto) 0.1 (0.1-1.2) % Neut # (Auto) 6.01 H (1.78-5.38) K/mm3 Lymph # (Auto) 0.90 L (1.32-3.57) K/mm3 [place] # (Auto) 0.74 (0.30-0.82) K/mm3 Eos # (Auto) 0.02 L (0.04-0.54) K/mm3 Baso # (Auto) 0.01 (0.01-0.08) K/mm3 Sodium 137 (136-145) mEq/L Potassium 3.0 L (3.5-5.1) mEq/L Chloride 95 L (98-107) mEq/L Carbon Dioxide 28 (21-32) mEq/L Anion Gap 17.0 H (5-15) BUN 7 (7-18) mg/dL Creatinine 0.7 (0.7-1.3) mg/dL Est Cr Clr Drug Dosing 168.69 mL/min Estimated GFR (MDRD) > 60 (>60) mL/min BUN/Creatinine Ratio 10.0 L (14-18) Glucose 87 (74-106) mg/dL Calcium 9.5 (8.5-10.1) mg/dL Magnesium 2.1 (1.8-2.4) mg/dl Med Orders - Current: Current Medications Chlordiazepoxide HCl (Librium) 25 mg PO TID [facility] Last Admin: 12/17/17 09:12 Dose: 25 mg Folic Acid (Folic Acid) 1 mg PO DAILY [facility] Last Admin: 12/17/17 09:12 Dose: 1 mg Haloperidol Lactate (Haldol) 1 mg IVPUSH Q6H PRN PRN Reason: restlessness Lorazepam 20 mg/ Dextrose/ (Water) 100 mls @ 4 mls/hr IV ASDIRECTED [facility] Last Infusion: 12/17/17 07:30 Dose: 0 mls/hr Lorazepam (Ativan) 2 mg IVPUSH Q4H PRN PRN Reason: Anxiety Metoprolol Tartrate (Lopressor) 5 mg IVPUSH Q4H PRN PRN Reason: Tachycardia Nicotine (Habitrol) 21 mg TRDERM DAILY [facility] Last Admin: 12/17/17 09:12 Dose: 21 mg Thiamine HCl (Vitamin B-1) 100 mg IV DAILY [facility] Last Admin: 12/17/17 09:12 Dose: 100 mg Discontinued Medications Magnesium Sulfate 2 gm/ Premix 50 mls @ 50 mls/hr IV ONETIME ONE Stop: 12/16/17 18:22 Last Admin: 12/16/17 17:44 Dose: 50 mls/hr Sodium Chloride (Normal Saline) 1,000 mls @ 999 mls/hr IV ONETIME ONE Stop: 12/16/17 18:24 Last Admin: 12/16/17 17:42 Dose: 999 mls/hr Lorazepam 20 mg/ Sodium (Chloride) 100 mls @ 4 mls/hr IV ASDIRECTED [facility] Sodium Chloride (Normal Saline) 1,000 mls @ 75 mls/hr IV ASDIRECTED [facility] Last Admin: 12/16/17 22:14 Dose: 75 mls/hr Lorazepam (Ativan) 2 mg IVPUSH ONETIME STA Stop: 12/16/17 15:58 Last Admin: 12/16/17 16:02 Dose: 2 mg Lorazepam (Ativan) 0 mg IVPUSH ONETIME ONE PRN Reason: Protocol Stop: 12/16/17 20:08 Last Admin: 12/16/17 20:24 Dose: 1 mg - Exam Quality Assessment: Supplemental Oxygen, DVT Prophylaxis General: Alert, Oriented, No Acute Distress HEENT: Pupils Equal, Pupils Reactive, EOMI Neck: Trachea Midline, No JVD Lungs: Normal Respiratory Effort Cardiovascular: Regular Rate, Regular Rhythm GI/Abdominal Exam: Normal Bowel Sounds, Soft, Non-Tender, No Organomegaly, No Distention (Male) Exam: Deferred Back Exam: Normal Inspection Extremities: Normal Inspection, No Pedal Edema, Normal Capillary Refill Skin: Warm Neurological: No New Focal Deficit Psy/Mental Status: Alert, Anxious - Problem List Review Problem List Initiated/Reviewed/Updated: Yes - My Orders Last 24 Hours: My Active Orders 12/16/17 21:45 Aspiration Precautions [RC] ASDIRECTED CIWAA Assessment [RC] Q1HR Seizure Precautions [OM.PC] Routine 12/16/17 21:46 Notify Provider Consults [RC] ASDIRECTED Consult for Substance Abuse [CONS] Routine Consult to Physician [CONS] Routine 12/16/17 21:48 Code Status [Resuscitation Status] Stat 12/16/17 23:17 One To One Therapy [BH] Routine 12/17/17 09:00 chlordiazePOXIDE [Librium] 25 mg PO TID 12/17/17 11:00 KEPPRA [REF] Routine 12/17/17 Breakfast Clear Liquid Diet [DIET] - Plan Plan:: Impression: Alcohol withdrawal seizures cf DTs History of seizures, unspecified Polysubstance abuse (ETOH, marijuana, hashish) Tobacco dependence Plan: CIWA protocol/neurochecks Benzodiazepines scheduled/prn IVF MVI, Thiamine, Folic acid Aspiration/Sz precautions SA~pending/Psych consult Consult PETTY re: inpatient rehab DVT/GI prophylaxis
[2017-12-17] MEDS ORDERED: chlordiazePOXIDE 25 MG Cap PO PRN (09:45)
[2017-12-17] MEDS ORDERED: Albuterol/Ipratropium 3.0-0.5 MG/3 ML Neb Soln NEB PRN (09:45)
[2017-12-17] MEDS: Potassium Chloride 10% 20 MEQ/15 ML Soln 30 ML UD Cup PO SCH (20:34)
[2017-12-17] MEDS: Thiamine 100 MG Tab PO SCH (20:35)
[2017-12-17] MEDS: QUEtiapine 25 MG Tab PO SCH (20:35)
[2017-12-17] MEDS: levETIRAcetam 500 MG Tab PO SCH (20:35)
--- NOTE | 2017-12-17 22:34 | CONS ---
CONSULTING PHYSICIAN: Avinash Regalado LAC DATE OF CONSULTATION: 12/17/2017 TIME: 9:07 p.m. IDENTIFICATION: The patient is a 22-year-old male admitted to [facility] on 12/16/2017. An Alcohol and Drug consultation was requested by his medical treatment team. SOURCE OF INFORMATION: Hospital records, staff report, background research, and prescription drug monitoring report. HISTORY OF PRESENT ILLNESS: The patient is a 22-year-old male presenting to [facility] with seizures and altered mental state. After the patient was stabilized, he was amenable to the Alcohol and Drug consultation; however, he was minimally cooperative and provided guarded self-report. The patient is known to this director of field coordination as a person who was abusing polysubstances. He has presented 4 times in the past year to [facility] ED via ambulance with related seizures. On 09/01/2017, he presented with seizures accompanied with cannabis and cocaine, presumptive positive. On 09/26/2017, the patient presented with seizures and positive for cannabis. On this admission, he presented with seizures and positive for barbiturates. When the patient was asked if he was aware that his substance abuse may be causing or exacerbating seizures, he replied that he was aware, he had no reason for continuing his substance abuse behavior even though it would put him at serious risk. PSYCHOSOCIAL HISTORY: The patient reports he was born and raised in [place], [place], by his biological parents. His parents when he was 7 years old. He has a twin sister and an older half brother. The patient stated that he primarily lived with his mother, but now has been living with a roommate. The patient was working for [employer], but was laid off. He is currently unemployed, single, and has no children. The patient states that he graduated from the [employer] school in 2013. He is denying any traumatic or critical life events and he is denying being a victim or perpetrator of abuse. SUBSTANCE ABUSE HISTORY: 1. Tobacco. The patient reports that he started smoking cigarettes at 17 years old and he reports smoking about 3/4 of pack a day. 2. Cannabis. The patient reports that he 1st started smoking cannabis in high school and has continued to smoke throughout his life. He is currently smoking about 0.25 ounce a week and he prefers sativa. 3. Alcohol. The patient reports that he started drinking alcohol at early age, drinking beer primarily on the weekends throughout high school. He reports that at age 20 he switched to hard liquor and he is stating that for the past several years he has been drinking at least 5 days a week typically Eduardo Light and he can drink 12 beers and unknown shots of vodka. He prefers vodka 7 Up and states that he buys a 175 twice a week. 4. Amphetamines. The patient reports that he began smoking methamphetamine a year ago and he states that a bowl will last him all day. The patient is vague about the pattern of use, but states he has an unlimited supply. On 09/01/2017, he presented positive for cocaine. He is not responding to whether or not that is accurate. The patient is offering very little self- report that could be incriminating to him. However, it would be reasonable to believe that the combination of alcohol, cocaine, methamphetamine, and cannabis may be exacerbating his medical condition with seizures. DIAGNOSES: The patient meets DSM-V criteria for the following diagnoses: 1. F10.20, alcohol use disorder, severe. 2. F10.232, alcohol withdrawal with perceptual disturbance. 3. F17.200, tobacco use disorder, severe. 4. F12.20, cannabis use disorder, severe. 5. F15.20, amphetamine use disorder, severe, methamphetamine type. ASAM DIMENSIONS: 1. Dimension 1: Score 2. The patient has some difficulty tolerating and coping with withdrawal discomfort, intoxication may be severe, but responds to support and treatment. Does pose risk of severe withdrawal including alcohol-related seizures. 2. Dimension 2: Score 3. The patient appears to have either a seizure disorder or a substance induced seizure disorder and he is neglecting to seek medical assistance. 3. Dimension 3: Score 2. The patient has difficulty with impulse control and lacks coping skills. He appears to have difficulty functioning in significant life areas, but is able to participate in most treatment activities. There is serious concern for his continued substance use knowing that it will cause or it could cause or exacerbate fatal seizure activity. 4. Dimension 4: Score 4. The patient is noncompliant with treatment. He has displayed no awareness of addiction and is unwilling to explore change or is in total denial of his illness and its implications. 5. Dimension 5: Score 4. The patient has no awareness of the negative impact of his substance use and appears to not have any coping skills to arrest his addiction or prevent relapse. 6. Dimension 6: Score 3. The patient is not engaged in structured meaningful activity. He has a negative peer group; however, he does have a supportive family, primarily his sister. ASSESSMENT SUMMARY: The patient appears to be a young man who is in serious trouble with polysubstance dependence that is either causing or exacerbating recurring epileptic seizures. The patient is aware that his continued use of substances will result or may result in seizure activity and could be fatal; however, he verbalizes ambivalence. He appears to be battling a generational predisposition to addictions from both sides of the family manifesting with early onset addiction that is severe and pervasive. The patient is reporting that he has participated in outpatient treatment in the past; however, he has no desire to pursue substance abuse treatment at this time. The patient has reported that he stopped taking his seizure medication in 08/2017 even though he has presented to ED 3 times since then with seizures. The patient meets ASAM criteria for level 3.7, medically monitored inpatient treatment, and the petition for involuntary commitment was exercised on 12/17/2017 as the patient meets imminent danger criteria. Without professional intervention, the patient has demonstrated historically that he is unable to arrest his substance use and continued use of alcohol, cannabis, and amphetamines will most certainly result in continued seizure activity. Dr. Hunt and DULCE Harvey were consulted regarding the patient's evaluation. There is deep concern for this patient and every effort will be made to ensure a safe discharge plan. DULCE Harvey, will be making arrangements for continuing treatment and coordinating the logistics of the petition for involuntary commitment. [facility] /[id number]
[2017-12-18] MEDS ORDERED: Magnesium Sulfate/Water 2 GM in Premix Bag 1 BAG IV ONE (08:24)
[2017-12-18] MEDS: Nicotine 21 MG/24 Hr Patch TRDERM SCH (08:53)
[2017-12-18] MEDS: Potassium Chloride 10% 20 MEQ/15 ML Soln 30 ML UD Cup PO SCH ×3 (08:54→20:51)
[2017-12-18] MEDS: levETIRAcetam 500 MG Tab PO SCH ×2 (08:55→20:50)
[2017-12-18] MEDS: Folic Acid 1 MG Tab PO SCH (08:55)
[2017-12-18] MEDS ORDERED: Potassium Chloride 20 MEQ Tab.ER PO ONE (12:00)
--- NOTE | 2017-12-18 14:15 | PCM.PN ---
- General Info Date of Service: 12/18/17 Functional Status: Reports: Tolerating Diet - Review of Systems General: Reports: Weakness HEENT: Reports: No Symptoms Pulmonary: Reports: No Symptoms Cardiovascular: Reports: No Symptoms Gastrointestinal: Reports: No Symptoms Genitourinary: Reports: No Symptoms Musculoskeletal: Reports: No Symptoms Skin: Reports: No Symptoms Neurological: Reports: No Symptoms Psychiatric: Reports: No Symptoms - Patient Data Vitals - Most Recent: Last Vital Signs Temp 36.8 C 12/18/17 11:54 Pulse 96 12/18/17 04:00 Resp 16 12/18/17 11:54 BP 128/91 H 12/18/17 11:54 Pulse Ox 99 12/18/17 08:00 Weight - Most Recent: 72.665 kg I&O - Last 24 Hours: Intake & Output 12/17/17 12/18/17 12/18/17 22:59 06:59 14:59 Intake Total 7400 435 8361 Output Total 550 600 Balance 1093 0 1010 Lab Results Last 24 Hours: Laboratory Results - last 24 hr 12/18/17 12/18/17 Range/Units 05:24 05:24 WBC 4.97 (4.23-9.07) K/mm3 RBC 3.65 L (4.63-6.08) M/mm3 Hgb 12.9 L (13.7-17.5) gm/L Hct 36.3 L (40.1-51.0) % MCV 99.5 H (79.0-92.2) fl MCH 35.3 H (25.7-32.2) pg MCHC 35.5 (32.2-35.5) g/dl RDW Std Deviation 41.9 (35.1-43.9) fL Plt Count 155 L (163-337) K/mm3 MPV 10.5 (9.4-12.3) fl Neut % (Auto) 65.4 (34.0-67.9) % Lymph % (Auto) 25.4 (21.8-53.1) % [place] % (Auto) 6.8 (5.3-12.2) % Eos % (Auto) 1.6 (0.8-7.0) Baso % (Auto) 0.4 (0.1-1.2) % Neut # (Auto) 3.25 (1.78-5.38) K/mm3 Lymph # (Auto) 1.26 L (1.32-3.57) K/mm3 [place] # (Auto) 0.34 (0.30-0.82) K/mm3 Eos # (Auto) 0.08 (0.04-0.54) K/mm3 Baso # (Auto) 0.02 (0.01-0.08) K/mm3 Sodium 137 (136-145) mEq/L Potassium 3.1 L (3.5-5.1) mEq/L Chloride 97 L (98-107) mEq/L Carbon Dioxide 27 (21-32) mEq/L Anion Gap 16.1 H (5-15) BUN 8 (7-18) mg/dL Creatinine 0.8 (0.7-1.3) mg/dL Est Cr Clr Drug Dosing 147.60 mL/min Estimated GFR (MDRD) > 60 (>60) mL/min BUN/Creatinine Ratio 10.0 L (14-18) Glucose 94 (74-106) mg/dL Calcium 9.3 (8.5-10.1) mg/dL Magnesium 1.6 L (1.8-2.4) mg/dl C-Reactive Protein 1.1 H* (<1.0) mg/dL Med Orders - Current: Current Medications Albuterol/Ipratropium (Duoneb 3.0-0.5 Mg/3 Ml) 3 ml NEB QID PRN PRN Reason: Shortness of Breath Chlordiazepoxide HCl (Librium) 25 mg PO TID PRN PRN Reason: Anxiety Folic Acid (Folic Acid) 1 mg PO DAILY [facility] Last Admin: 12/18/17 08:55 Dose: 1 mg Haloperidol Lactate (Haldol) 1 mg IVPUSH Q6H PRN PRN Reason: restlessness Lorazepam 20 mg/ Dextrose/ (Water) 100 mls @ 4 mls/hr IV ASDIRECTED [facility] Last Infusion: 12/17/17 07:30 Dose: 0 mls/hr Levetiracetam (Keppra) 1,000 mg PO BID [facility] Last Admin: 12/18/17 08:55 Dose: 1,000 mg Lorazepam (Ativan) 2 mg IVPUSH Q4H PRN PRN Reason: Anxiety Metoprolol Tartrate (Lopressor) 5 mg IVPUSH Q4H PRN PRN Reason: Tachycardia Nicotine (Habitrol) 21 mg TRDERM DAILY [facility] Last Admin: 12/18/17 08:53 Dose: 21 mg Potassium Chloride (Potassium Chloride) 40 meq PO TID [facility] Stop: 12/19/17 15:01 Quetiapine Fumarate (Seroquel) 50 mg PO BEDTIME [facility] Last Admin: 12/17/17 20:35 Dose: 50 mg Thiamine HCl (Vitamin B-1) 100 mg PO BEDTIME [facility] Last Admin: 12/17/17 20:35 Dose: 100 mg Discontinued Medications Chlordiazepoxide HCl (Librium) 25 mg PO TID [facility] Last Admin: 12/17/17 09:12 Dose: 25 mg Magnesium Sulfate 2 gm/ Premix 50 mls @ 50 mls/hr IV ONETIME ONE Stop: 12/16/17 18:22 Last Admin: 12/16/17 17:44 Dose: 50 mls/hr Sodium Chloride (Normal Saline) 1,000 mls @ 999 mls/hr IV ONETIME ONE Stop: 12/16/17 18:24 Last Admin: 12/16/17 17:42 Dose: 999 mls/hr Lorazepam 20 mg/ Sodium (Chloride) 100 mls @ 4 mls/hr IV ASDIRECTED [facility] Sodium Chloride (Normal Saline) 1,000 mls @ 75 mls/hr IV ASDIRECTED [facility] Last Admin: 12/16/17 22:14 Dose: 75 mls/hr Magnesium Sulfate 2 gm/ Premix 50 mls @ 25 mls/hr IV ONETIME ONE Stop: 12/18/17 10:23 Last Admin: 12/18/17 08:56 Dose: 25 mls/hr Lorazepam (Ativan) 2 mg IVPUSH ONETIME STA Stop: 12/16/17 15:58 Last Admin: 12/16/17 16:02 Dose: 2 mg Lorazepam (Ativan) 0 mg IVPUSH ONETIME ONE PRN Reason: Protocol Stop: 12/16/17 20:08 Last Admin: 12/16/17 20:24 Dose: 1 mg Potassium Chloride (Potassium Chloride) 40 meq PO BID [facility] Stop: 12/20/17 09:01 Last Admin: 12/18/17 08:54 Dose: 40 meq Potassium Chloride (Klor-Con M20) 40 meq PO ONETIME ONE Stop: 02/15/18 12:01 Last Admin: 12/18/17 11:51 Dose: 40 meq Thiamine HCl (Vitamin B-1) 100 mg IV DAILY [facility] Last Admin: 12/17/17 09:12 Dose: 100 mg - Exam Quality Assessment: DVT Prophylaxis General: Alert, Oriented, Cooperative HEENT: Pupils Equal, Pupils Reactive, EOMI Neck: Trachea Midline, No JVD Lungs: Normal Respiratory Effort GI/Abdominal Exam: Normal Bowel Sounds, Soft, Non-Tender, No Organomegaly, No Distention (Male) Exam: Deferred Back Exam: Normal Inspection Extremities: Normal Inspection Skin: Warm Neurological: No New Focal Deficit Psy/Mental Status: Alert, Normal Affect, Normal Mood - Problem List & Annotations (1) Delirium tremens SNOMED Code(s): 8657512 Code(s): F10.231 - ALCOHOL DEPENDENCE WITH WITHDRAWAL DELIRIUM Status: Acute Current Visit: Yes (2) Abnormal LFTs SNOMED Code(s): 211183065 Code(s): R79.89 - OTHER SPECIFIED ABNORMAL FINDINGS OF BLOOD CHEMISTRY Status: Acute Current Visit: No (3) Anxiety SNOMED Code(s): 16056965 Code(s): F41.9 - ANXIETY DISORDER, UNSPECIFIED Status: Acute Current Visit: No (4) Epileptic seizure SNOMED Code(s): 78258375 Code(s): G40.909 - EPILEPSY, UNSP, NOT INTRACTABLE, WITHOUT STATUS EPILEPTICUS Status: Acute Current Visit: No - Problem List Review Problem List Initiated/Reviewed/Updated: Yes - My Orders Last 24 Hours: My Active Orders 12/17/17 21:00 Thiamine [Vitamin B-1] 100 mg PO BEDTIME levETIRAcetam [Keppra] 1,000 mg PO BID 12/18/17 15:00 Potassium Chloride 40 meq PO TID 12/18/17 Lunch Regular Diet [DIET] 12/19/17 05:00 BMP [BASIC METABOLIC PANEL,BMP] [CHEM] DAILY CBC WITH AUTO DIFF [HEME] DAILY CRP [C-REACTIVE PROTEIN] [CHEM] DAILY MAGNESIUM [CHEM] DAILY 12/20/17 05:00 BMP [BASIC METABOLIC PANEL,BMP] [CHEM] DAILY CBC WITH AUTO DIFF [HEME] DAILY MAGNESIUM [CHEM] DAILY 12/21/17 05:00 BMP [BASIC METABOLIC PANEL,BMP] [CHEM] DAILY CBC WITH AUTO DIFF [HEME] DAILY MAGNESIUM [CHEM] DAILY - Plan Plan:: Impression: Medically stable Alcohol withdrawal seizures cf DTs History of seizures, unspecified Polysubstance abuse (ETOH, marijuana, hashish) Tobacco dependence Plan: Spoke with Dr Finesse BENAVIDES protocol/neurochecks Benzodiazepines scheduled/prn IVF MVI, Thiamine, Folic acid Aspiration/Sz precautions SA~pending/Psych consult Consult PETTY re: inpatient rehab DVT/GI prophylaxis
--- NOTE | 2017-12-18 18:22 | CONS ---
CONSULTING PHYSICIAN: Peter Haywood MD DATE OF CONSULTATION: 12/17/2017 IDENTIFICATION: The patient is a 22-year-old male who was admitted to the inpatient MICU at [facility] on 12/16/2017. He is seen for psychiatric evaluation. CHIEF COMPLAINT: "I just stood up and all of a sudden I had a seizure." HISTORY OF PRESENT ILLNESS: The patient is a 22-year-old male who reports that he had been hanging out and then when he got up, he had a seizure. Evidently, the patient was brought to the hospital "by a friend" and upon evaluation by the ER staff, admitted with seizure activity and likely alcohol withdrawal. The patient states his mood "is tired" at this point in time. He also notes he is "ready to go home." He denies any problems with depression or anxiety. He denies any issues with illicit substance use and he denies any alcohol use also as a matter of fact. He states he is generally sleeping well. He has good appetite. Denies any mood swings, any isolative behaviors, or any weight change. He also denies any suicidal or homicidal. He denies any psychotic, delusional, or paranoid symptoms and again is emphatic he has not been using any alcohol or illicit substances. He is alert and oriented x1 to person but he thinks he is in [place] and thinks it is , 12/27/2013. MEDICATIONS: At time of presentation: 1. Keppra 1000 mg b.i.d. 2. Lamictal 150 mg b.i.d. ALLERGIES: No known drug allergies. PAST MEDICAL HISTORY: The patient states he has been struggling with a seizure disorder for the past 1- 1/2 years. REVIEW OF SYSTEMS: Aside from neuro, it appears that all other major organ systems are negative at this point in time for acute difficulties or complications. FAMILY, PSYCHIATRIC, AND CD HISTORY: The patient denies past psychiatric history. The patient denies any previous psychiatric hospitalizations or chemical dependency treatments. He states he is a 3/4 pack per day smoker for the past 7 years. Denies any previous suicide attempts, self-injurious behaviors, or eating disorder history. Denies any past psychiatric medication history. SOCIAL HISTORY: The patient was born and raised in [place], [place], is the third of 3 siblings and 1 brother and 1 twin sister. The patient's biological parents were never . The patient's father worked in the oil field. Mother is a plate finisher. The patient's status/level of education is high school diploma. 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 He is never , not involved in any current relationships. He does not have any children. He lives in [place], [place] with 2 roommates. Denies any prior service or current legal difficulties. He is raised [employer]. He enjoys playing video games and building, "building stuff." MENTAL STATUS EXAM: The patient is a 22-year-old white male in no apparent distress. Speech is of increased latency, response, and in general, shortened duration of utterance. Psychomotor activity is within normal limits. The patient is cognitively oriented x1 to person but not to place or time. There is no abnormal motor movements or tics observed. Gait and station are not observed. This patient is seated in a chair for the purposes of the inpatient consult. Mood is "tired." Affect is consistent with stated mood, but cooperative overall for the purposes of the inpatient consult. There are no behavioral or stated evidence of acute suicidal or homicidal ideation or acute psychotic, delusional, or paranoid symptoms. Thought processes are significant for some thought blocking and confusion. There is no manic symptoms or loose associations evident. Judgment and insight actually appear impaired at this point in time secondary to most likely postictal state or alcohol withdrawal symptoms. Motivation for help appears poor. VITAL SIGNS: 136/93, 88, 16, 97.5 degrees. IMPRESSION: [place] I: 1. Alcohol dependence F10.20. 2. Rule out psychosis, not otherwise specified. [place] II: None. Livingston III: Seizure disorder times 1.5 years. [place]ston IV: Severe. Livingston V: 45-50. PLAN: 1. Folic acid supplementation. 2. Thiamine supplementation. 3. Begin Seroquel 50 mg at bedtime for clarity of thought, sleep initiation, maintenance, and anxiety reduction. 4. Ativan per CIWA protocol. 5. Librium 25 mg t.i.d. p.r.n. also for withdrawal symptoms. 6. Recommend chemical dependency evaluation. 7. Recommend that as the patient stabilizes medically that he be transferred to inpatient chemical dependency treatment when time is appropriate. 8. AA denial management representative to visit the patient while on unit. 9. Pastoral guidance. 10.We will continue to follow up with the patient on an as-needed basis while he remains on the inpatient MICU. 11.We will follow up with the patient sooner if there are any complications in the interim. 12.Crisis plan is in place. [facility] /[id number]
[2017-12-18] MEDS: Thiamine 100 MG Tab PO SCH (20:51)
[2017-12-18] MEDS: QUEtiapine 25 MG Tab PO SCH (20:51)
[2017-12-19 04:05] VITALS: BP 129/93
--- NOTE | 2017-12-19 15:38 | PCM.DCSUM1 ---
Discharge Summary - Hospital Course Free Text/Narrative:: 22 year old male with significant substance abuse history including alcohol, methamphetamine and marijuana/hashish. He had a witnessed seizure as described by one oh is roommates. He has been on seizure medication for 2 years and only recently refilled his prescriptions after not filling either one since June 2017. He has had apparent may have had visual hallucinations before presenting to the ED. He will be admitted to the ICU for detox from ETOH, it is suspected that he has a history of alcohol withdrawal seizures. A psychiatric and substance abuse consult will be placed. Discharged without seizure activity. Consults were performed by substance abuse service and psychiatry. DC on home meds; does not require benzodiazepines. 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 to [facility]. - Discharge Data Discharge Date: 12/19/17 Discharge Disposition: DC/Tfer to Inpt Rehab Fac 62 Condition: Good - Discharge Diagnosis/Problem(s) (1) Delirium tremens SNOMED Code(s): 2930893 ICD Code: F10.231 - ALCOHOL DEPENDENCE WITH WITHDRAWAL DELIRIUM Status: Acute (2) Abnormal LFTs SNOMED Code(s): 423714152 ICD Code: R79.89 - OTHER SPECIFIED ABNORMAL FINDINGS OF BLOOD CHEMISTRY Status: Acute (3) Anxiety SNOMED Code(s): 05392979 ICD Code: F41.9 - ANXIETY DISORDER, UNSPECIFIED Status: Acute (4) Epileptic seizure SNOMED Code(s): 31104487 ICD Code: G40.909 - EPILEPSY, UNSP, NOT INTRACTABLE, WITHOUT STATUS EPILEPTICUS Status: Acute - Patient Summary/Data Consults: Consultations 12/16/17 21:46 Consult for Substance Abuse [CONS] Routine Consult to Physician [CONS] Routine 12/17/17 12:43 Consult to Spiritual Care [CONS] Routine - Patient Instructions Diet: Regular Diet as Tolerated Activity: As Tolerated Driving: Do Not Drive Showering/Bathing: May Shower Notify Provider of: Nausea and/or Vomiting - Discharge Plan Prescriptions/Med Rec: Folic Acid 1 mg PO DAILY #30 tablet Potassium Chloride 40 meq PO TID #12 cup QUEtiapine [SEROquel] 50 mg PO BEDTIME #30 tablet Thiamine [Vitamin B-1] 100 mg PO BEDTIME #30 tablet Home Medications: Home Meds levETIRAcetam [Keppra] 1,000 mg PO BID #60 tablet 01/28/17 [Rx] lamoTRIgine [Lamotrigine] 150 mg PO BID 09/01/17 [History] Folic Acid 1 mg PO DAILY #30 tablet 12/19/17 [Rx] Potassium Chloride 40 meq PO TID #12 cup 12/19/17 [Rx] QUEtiapine [SEROquel] 50 mg PO BEDTIME #30 tablet 12/19/17 [Rx] Thiamine [Vitamin B-1] 100 mg PO BEDTIME #30 tablet 12/19/17 [Rx] Patient Handouts: Delirium Tremens, [id number] Referrals: PCP,None [Primary Care Provider] - - Discharge Summary/Plan Comment DC Time >30 min.: No Discharge Summary/Plan Comment: Impression: Medically stable Alcohol withdrawal seizures cf DTs; no seizure activity this admission. 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 CIWA protocol/neurochecks Benzodiazepines prn IVF MVI, Thiamine, Folic acid Aspiration/Sz precautions Deposition: inpatient rehab DVT/GI prophylaxis - General Info Date of Service: 12/16/17 Functional Status: Reports: Pain Controlled, Tolerating Diet, Ambulating, Urinating - Review of Systems General: Reports: No Symptoms HEENT: Reports: No Symptoms Pulmonary: Reports: No Symptoms Cardiovascular: Reports: No Symptoms Gastrointestinal: Reports: No Symptoms Genitourinary: Reports: No Symptoms Musculoskeletal: Reports: No Symptoms Skin: Reports: No Symptoms Neurological: Reports: No Symptoms Psychiatric: Reports: No Symptoms - Patient Data Vitals - Most Recent: Last Vital Signs Temp 36.8 C 12/19/17 04:00 Pulse 98 12/19/17 04:00 Resp 18 12/19/17 04:00 BP 129/93 H 12/19/17 04:00 Pulse Ox 98 12/19/17 04:00 Weight - Most Recent: 73.028 kg I&O - Last 24 hours: Intake & Output 12/19/17 12/19/17 12/19/17 06:59 14:59 22:59 Intake Total 2400 Output Total 2500 Balance -100 Lab Results - Last 24 hrs: Laboratory Results - last 24 hr 12/19/17 12/19/17 Range/Units 06:20 06:20 WBC 4.92 (4.23-9.07) K/mm3 RBC 3.98 L (4.63-6.08) M/mm3 Hgb 13.8 (13.7-17.5) gm/L Hct 39.8 L (40.1-51.0) % MCV 100.0 H (79.0-92.2) fl MCH 34.7 H (25.7-32.2) pg MCHC 34.7 (32.2-35.5) g/dl RDW Std Deviation 43.1 (35.1-43.9) fL Plt Count 212 (163-337) K/mm3 MPV 10.1 (9.4-12.3) fl Neut % (Auto) 58.6 (34.0-67.9) % Lymph % (Auto) 24.2 (21.8-53.1) % [place] % (Auto) 12.6 H (5.3-12.2) % Eos % (Auto) 2.4 (0.8-7.0) Baso % (Auto) 1.6 H (0.1-1.2) % Neut # (Auto) 2.88 (1.78-5.38) K/mm3 Lymph # (Auto) 1.19 L (1.32-3.57) K/mm3 [place] # (Auto) 0.62 (0.30-0.82) K/mm3 Eos # (Auto) 0.12 (0.04-0.54) K/mm3 Baso # (Auto) 0.08 (0.01-0.08) K/mm3 Sodium 135 L (136-145) mEq/L Potassium 4.2 (3.5-5.1) mEq/L Chloride 99 (98-107) mEq/L Carbon Dioxide 22 (21-32) mEq/L Anion Gap 18.2 H (5-15) BUN 9 (7-18) mg/dL Creatinine 0.7 (0.7-1.3) mg/dL Est Cr Clr Drug Dosing 169.53 mL/min Estimated GFR (MDRD) > 60 (>60) mL/min BUN/Creatinine Ratio 12.9 L (14-18) Glucose 95 (74-106) mg/dL Calcium 9.8 (8.5-10.1) mg/dL Magnesium 1.8 (1.8-2.4) mg/dl C-Reactive Protein < 0.2 (<1.0) mg/dL Med Orders - Current: Current Medications Discontinued Medications Albuterol/Ipratropium (Duoneb 3.0-0.5 Mg/3 Ml) 3 ml NEB QID PRN PRN Reason: Shortness of Breath Chlordiazepoxide HCl (Librium) 25 mg PO TID NATHANAEL Last Admin: 12/17/17 09:12 Dose: 25 mg Chlordiazepoxide HCl (Librium) 25 mg PO TID PRN PRN Reason: Anxiety Last Admin: 12/19/17 04:37 Dose: 25 mg Folic Acid (Folic Acid) 1 mg PO DAILY NATHANAEL Last Admin: 12/18/17 08:55 Dose: 1 mg Haloperidol Lactate (Haldol) 1 mg IVPUSH Q6H PRN PRN Reason: restlessness Magnesium Sulfate 2 gm/ Premix 50 mls @ 50 mls/hr IV ONETIME ONE Stop: 12/16/17 18:22 Last Admin: 12/16/17 17:44 Dose: 50 mls/hr Sodium Chloride (Normal Saline) 1,000 mls @ 999 mls/hr IV ONETIME ONE Stop: 12/16/17 18:24 Last Admin: 12/16/17 17:42 Dose: 999 mls/hr Lorazepam 20 mg/ Sodium (Chloride) 100 mls @ 4 mls/hr IV ASDIRECTED NATHANAEL Lorazepam 20 mg/ Dextrose/ (Water) 100 mls @ 4 mls/hr IV ASDIRECTED NATHANAEL Last Infusion: 12/17/17 07:30 Dose: 0 mls/hr Sodium Chloride (Normal Saline) 1,000 mls @ 75 mls/hr IV ASDIRECTED NATHANAEL Last Admin: 12/16/17 22:14 Dose: 75 mls/hr Magnesium Sulfate 2 gm/ Premix 50 mls @ 25 mls/hr IV ONETIME ONE Stop: 12/18/17 10:23 Last Admin: 12/18/17 08:56 Dose: 25 mls/hr Levetiracetam (Keppra) 1,000 mg PO BID [facility] Last Admin: 12/18/17 20:50 Dose: 1,000 mg Lorazepam (Ativan) 2 mg IVPUSH ONETIME STA Stop: 12/16/17 15:58 Last Admin: 12/16/17 16:02 Dose: 2 mg Lorazepam (Ativan) 0 mg IVPUSH ONETIME ONE PRN Reason: Protocol Stop: 12/16/17 20:08 Last Admin: 12/16/17 20:24 Dose: 1 mg Lorazepam (Ativan) 2 mg IVPUSH Q4H PRN PRN Reason: Anxiety Last Admin: 12/18/17 23:18 Dose: 2 mg Metoprolol Tartrate (Lopressor) 5 mg IVPUSH Q4H PRN PRN Reason: Tachycardia Nicotine (Habitrol) 21 mg TRDERM DAILY [facility] Last Admin: 12/18/17 08:53 Dose: 21 mg Potassium Chloride (Potassium Chloride) 40 meq PO BID [facility] Stop: 12/20/17 09:01 Last Admin: 12/18/17 08:54 Dose: 40 meq Potassium Chloride (Klor-Con M20) 40 meq PO ONETIME ONE Stop: 12/18/17 12:01 Last Admin: 12/18/17 11:51 Dose: 40 meq Potassium Chloride (Potassium Chloride) 40 meq PO TID [facility] Stop: 12/19/17 15:01 Last Admin: 12/18/17 20:51 Dose: 40 meq Quetiapine Fumarate (Seroquel) 50 mg PO BEDTIME [facility] Last Admin: 12/18/17 20:51 Dose: 50 mg Thiamine HCl (Vitamin B-1) 100 mg IV DAILY [facility] Last Admin: 12/17/17 09:12 Dose: 100 mg Thiamine HCl (Vitamin B-1) 100 mg PO BEDTIME [facility] Last Admin: 12/18/17 20:51 Dose: 100 mg - Exam Quality Assessment: Reports: DVT Prophylaxis General: Reports: Alert, Oriented, Cooperative, No Acute Distress HEENT: Reports: Pupils Equal, Pupils Reactive, EOMI Neck: Reports: Supple, Trachea Midline, No JVD Lungs: Reports: Normal Respiratory Effort Cardiovascular: Reports: Regular Rate, Regular Rhythm GI/Abdominal Exam: Normal Bowel Sounds, Soft, Non-Tender, No Organomegaly, No Distention (Male) Exam: Deferred Rectal (Males) Exam: Deferred Back Exam: Reports: Normal Inspection Extremities: Normal Inspection, Normal Range of Motion, Non-Tender, No Pedal Edema, Normal Capillary Refill Skin: Reports: Warm, Dry, Intact Neurological: Reports: No New Focal Deficit, Normal Gait, Normal Speech Psy/Mental Status: Reports: Alert, Normal Affect, Normal Mood *Q Meaningful Use (DIS) - VTE *Q VTE Criteria *Q: - Stroke *Q Stroke Criteria *Q: - AMI *Q AMI Criteria *Q:
== END 2017-12-19 07:30 | DRG 897 ==
LOC: JD.ED 15:27 → JD.ICU 21:39
PROVIDERS: ADMIT Internal Medicine Cardiovascular Disease; ATTEND Internal Medicine Cardiovascular Disease
DX: F10.231 Alcohol dependence with withdrawal delirium (principal); E87.2 Acidosis; F15.20 Other stimulant dependence, uncomplicated; F10.232 Alcohol dependence with withdrawal with perceptual disturbance; R79.89 Other specified abnormal findings of blood chemistry; F41.9 Anxiety disorder, unspecified; G40.909 Epilepsy, unspecified, not intractable, without status epilepticus; E87.6 Hypokalemia; F12.10 Cannabis abuse, uncomplicated; F17.210 Nicotine dependence, cigarettes, uncomplicated; Z79.899 Other long term (current) drug therapy; E83.42 Hypomagnesemia; Y90.9 Presence of alcohol in blood, level not specified; J30.2 Other seasonal allergic rhinitis
CPT/HCPCS: 36415; 70450; 70450-26; 80048; 80053; 80177; 80306; 82550; 83735; 84100; 85025; 86140; 96361; 96365; 96375; 96376; 99285; 99285-25; A9270-GY; G0480; J2060; J3411; J3475; J7040; J7060

== ENCOUNTER 2018-02-16 19:50 | Emergency (ER) | payer OTHER, SELFPAY ==
[2018-02-16 20:20] VITALS: BP 134/86
[2018-02-16] MEDS ORDERED: Sodium Chloride 0.9% 10 ML Syringe FLUSH PRN (20:33)
[2018-02-16] MEDS ORDERED: Sodium Chloride 0.9% 1,000 ML IV ONE ×2 (20:35→21:30)
[2018-02-16] MEDS ORDERED: LORazepam 2 MG/ML SDV IVPUSH ONE (20:35)
[2018-02-16] MEDS ORDERED: Ondansetron 4 MG/2 ML SDV IVPUSH ONE ×2 (20:39→21:34)
--- NOTE | 2018-02-16 22:43 | EDM.PDOC ---
ED HPI GENERAL MEDICAL PROBLEM - General Chief Complaint: Neurological Problem Stated Complaint: SEISURE Time Seen by Provider: 02/16/18 20:20 Source of Information: Reports: Patient, Old Records History Limitations: Reports: No Limitations - History of Present Illness INITIAL COMMENTS - FREE TEXT/NARRATIVE: 22-year-old male presents via private vehicle for evaluation and treatment following a seizure. Patient has a history of seizure disorders currently on Keppra lamotrigine. He states he's been taking as prescribed. Seizure was witnessed by a friend. States that he was walking when he tensed up became tight and shaky. His friend was able to assist him to the ground and therefore he did not his head and had no head trauma. States in her seizure lasted about 1 minute. Reports he bit his tongue. No bowel or bladder incontinence. He now feels nauseous and has vomited on several times. No headache. No fevers, chills , cough or cold symptoms abdominal pain. His eyes are red and swollen which she attributes to the nausea and vomiting. In addition to a seizure history patient does have drug and alcohol history identified on review of his chart record. States he did not have any alcohol today, last was last night. Denies any illicit drug use. Patient neurologist is Dr. Falcon. Does not recall the last time he has been in to see him. Onset: Today - Related Data Allergies Allergy/AdvReac Type Severity Reaction Status Date / Time seasonal Allergy Other Uncoded 12/16/17 15:36 Home Meds: Home Meds levETIRAcetam [Keppra] 1,000 mg PO BID #60 tablet 01/28/17 [Rx] lamoTRIgine [Lamotrigine] 150 mg PO BID 09/01/17 [History] Past Medical History HEENT History: Reports: Other (See Below) Other HEENT History: missing tooth. Gastrointestinal History: Reports: Gastritis, GERD Musculoskeletal History: Reports: Fracture Other Musculoskeletal History: broke both arms, ankle Neurological History: Reports: Seizure Psychiatric History: Reports: Anxiety - Past Surgical History Musculoskeletal Surgical History: Reports: ORIF Social & Family History - Family History Family Medical History: Noncontributory Respiratory: Reports: COPD - Tobacco Use Smoking Status *Q: Current Every Day Smoker Years of Tobacco use: 8 Packs/Tins Daily: 1 Second Hand Smoke Exposure: Yes - Caffeine Use Caffeine Use: Reports: Coffee, Energy Drinks, Soda, Tea - Alcohol Use Days Per Week of Alcohol Use: 4 Number of Drinks Per Day: 4 Total Drinks Per Week: 16 - Recreational Drug Use Recreational Drug Use: No Drug Use in Last 12 Months: Yes Recreational Drug Type: Reports: Marijuana/Hashish (last around Aug 2017), Methamphetamine Recreational Drug Use Frequency: Not Used In Over 4 Months - Living Situation & Occupation Living situation: Reports: Single, Other (with friends) Occupation: Unemployed ED ROS GENERAL - Review of Systems Review Of Systems: See Below Constitutional: Denies: Fever, Chills HEENT: Reports: Other (tongue bitten ) Respiratory: Denies: Cough GI/Abdominal: Reports: Nausea, Vomiting. Denies: Abdominal Pain, Stool Incontinence : Denies: Incontinence Neurological: Reports: Seizure. Denies: Headache - Physical Exam Exam: See Below Exam Limited By: No Limitations General Appearance: Alert, WD/WN, No Apparent Distress Eye Exam: Bilateral Eye: Other (minimal swelling to the bilateral lower lids with minimal erythema ) Ears: Normal External Exam Nose: Normal Inspection Throat/Mouth: Normal Inspection, Normal Lips, Normal Voice, No Airway Compromise , Evidence of Tongue Biting Head Exam: Atraumatic, Normocephalic Neck: Normal Inspection, Supple, Non-Tender, Full Range of Motion Respiratory/Chest: No Respiratory Distress, Lungs Clear, Normal Breath Sounds Cardiovascular: Normal Peripheral Pulses, No Murmur, Tachycardia GI/Abdominal: Soft, Non-Tender Neuro Exam (Abbreviated): Alert, Oriented, Normal Cognition, Normal Gait Psychiatric: Normal Affect, Normal Mood Skin Exam: Warm, Dry, Erythema (around eyes), Pallor Course - Vital Signs Last Recorded V/S: Last Vital Signs Temp Pulse 109 H 02/16/18 22:00 Resp 20 02/16/18 22:00 BP 134/86 02/16/18 20:19 Pulse Ox 98 02/16/18 22:00 - Orders/Labs/Meds Labs: Laboratory Tests 02/16/18 02/16/18 02/16/18 Range/Units 20:12 20:12 20:12 WBC 8.52 (4.23-9.07) K/mm3 RBC 4.21 L (4.63-6.08) M/mm3 Hgb 14.2 (13.7-17.5) gm/L Hct 40.9 (40.1-51.0) % MCV 97.1 H (79.0-92.2) fl MCH 33.7 H (25.7-32.2) pg MCHC 34.7 (32.2-35.5) g/dl RDW Std Deviation 41.9 (35.1-43.9) fL Plt Count 229 (163-337) K/mm3 MPV 9.5 (9.4-12.3) fl Neutrophils % (Manual) 81 H (40-60) % Band Neutrophils % 0 (0-10) % Lymphocytes % (Manual) 11 L (20-40) % Atypical Lymphs % 0 % Monocytes % (Manual) 7 (2-10) % Eosinophils % (Manual) 0 L (0.8-7.0) % Basophils % (Manual) 1 (0.2-1.2) Platelet Estimate Adequate RBC Morph Comment Normal Sodium 132 L (136-145) mEq/L Potassium 3.6 (3.5-5.1) mEq/L Chloride 91 L (98-107) mEq/L Carbon Dioxide 16 L (21-32) mEq/L Anion Gap 28.6 H (5-15) BUN 8 (7-18) mg/dL Creatinine 1.0 (0.7-1.3) mg/dL Est Cr Clr Drug Dosing 128.99 mL/min Estimated GFR (MDRD) > 60 (>60) mL/min BUN/Creatinine Ratio 8.0 L (14-18) Glucose 128 H (74-106) mg/dL Calcium 9.6 (8.5-10.1) mg/dL Phosphorus 2.8 (2.6-4.7) mg/dL Magnesium 1.7 L (1.8-2.4) mg/dl Total Bilirubin 0.8 (0.2-1.0) mg/dL AST 161 H (15-37) U/L ALT 82 H (16-63) U/L Alkaline Phosphatase 90 (46-116) U/L Creatine Kinase 551 H (39-308) U/L Total Protein 8.5 H (6.4-8.2) g/dl Albumin 4.7 (3.4-5.0) g/dl Globulin 3.8 gm/dL Albumin/Globulin Ratio 1.2 (1-2) Urine Color (Yellow) Urine Appearance (Clear) Urine pH (5.0-8.0) Ur Specific [place] (1.005-1.030) Urine Protein (Negative) Urine Glucose (UA) (Negative) Urine Ketones (Negative) Urine Occult Blood (Negative) Urine Nitrite (Negative) Urine Bilirubin (Negative) Urine Urobilinogen (0.2-1.0) Ur Leukocyte Esterase (Negative) Urine RBC (0-5) /hpf Urine WBC (0-5) /hpf Ur Epithelial Cells (0-5) /hpf Urine Bacteria (FEW) /hpf Urine Mucus (FEW) /hpf Urine Opiates Screen (NEGATIVE) Ur Buprenorphine Scrn (NEGATIVE) Ur Oxycodone Screen (NEGATIVE) Urine Methadone Screen (NEGATIVE) Ur Propoxyphene Screen (NEGATIVE) Ur Barbiturates Screen (NEGATIVE) Ur Tricyclics Screen (NEGATIVE) Ur Phencyclidine Scrn (NEGATIVE) Ur Amphetamine Screen (NEGATIVE) U Methamphetamines Scrn (NEGATIVE) U Benzodiazepines Scrn (NEGATIVE) U Cocaine Metab Screen (NEGATIVE) U Marijuana (THC) Screen (NEGATIVE) Ethyl Alcohol 0.01 (0.00) gm% 02/16/18 02/16/18 Range/Units 21:42 21:42 WBC (4.23-9.07) K/mm3 RBC (4.63-6.08) M/mm3 Hgb (13.7-17.5) gm/L Hct (40.1-51.0) % MCV (79.0-92.2) fl MCH (25.7-32.2) pg MCHC (32.2-35.5) g/dl RDW Std Deviation (35.1-43.9) fL Plt Count (163-337) K/mm3 MPV (9.4-12.3) fl Neutrophils % (Manual) (40-60) % Band Neutrophils % (0-10) % Lymphocytes % (Manual) (20-40) % Atypical Lymphs % % Monocytes % (Manual) (2-10) % Eosinophils % (Manual) (0.8-7.0) % Basophils % (Manual) (0.2-1.2) Platelet Estimate RBC Morph Comment Sodium (136-145) mEq/L Potassium (3.5-5.1) mEq/L Chloride (98-107) mEq/L Carbon Dioxide (21-32) mEq/L Anion Gap (5-15) BUN (7-18) mg/dL Creatinine (0.7-1.3) mg/dL Est Cr Clr Drug Dosing mL/min Estimated GFR (MDRD) (>60) mL/min BUN/Creatinine Ratio (14-18) Glucose (74-106) mg/dL Calcium (8.5-10.1) mg/dL Phosphorus (2.6-4.7) mg/dL Magnesium (1.8-2.4) mg/dl Total Bilirubin (0.2-1.0) mg/dL AST (15-37) U/L ALT (16-63) U/L Alkaline Phosphatase (46-116) U/L Creatine Kinase (39-308) U/L Total Protein (6.4-8.2) g/dl Albumin (3.4-5.0) g/dl Globulin gm/dL Albumin/Globulin Ratio (1-2) Urine Color Yellow (Yellow) Urine Appearance Clear (Clear) Urine pH 7.0 (5.0-8.0) Ur Specific [place] > or = 1.030 (1.005-1.030) Urine Protein 3+ H (Negative) Urine Glucose (UA) Negative (Negative) Urine Ketones 2+ H (Negative) Urine Occult Blood 2+ H (Negative) Urine Nitrite Negative (Negative) Urine Bilirubin Negative (Negative) Urine Urobilinogen 0.2 (0.2-1.0) Ur Leukocyte Esterase Negative (Negative) Urine RBC 0-5 (0-5) /hpf Urine WBC 0-5 (0-5) /hpf Ur Epithelial Cells 0-5 (0-5) /hpf Urine Bacteria Few (FEW) /hpf Urine Mucus Moderate H (FEW) /hpf Urine Opiates Screen Negative (NEGATIVE) Ur Buprenorphine Scrn Negative (NEGATIVE) Ur Oxycodone Screen Negative (NEGATIVE) Urine Methadone Screen Negative (NEGATIVE) Ur Propoxyphene Screen Negative (NEGATIVE) Ur Barbiturates Screen Negative (NEGATIVE) Ur Tricyclics Screen Negative (NEGATIVE) Ur Phencyclidine Scrn Negative (NEGATIVE) Ur Amphetamine Screen Negative (NEGATIVE) U Methamphetamines Scrn Negative (NEGATIVE) U Benzodiazepines Scrn Presumptive positive H (NEGATIVE) U Cocaine Metab Screen Negative (NEGATIVE) U Marijuana (THC) Screen Presumptive positive H (NEGATIVE) Ethyl Alcohol (0.00) gm% Meds: Medications Discontinued Medications Generic Name Dose Route Start Last Admin Trade Name Antoine PRN Reason Stop Dose Admin Sodium Chloride 1,000 mls @ 999 mls/hr 02/16/18 20:35 02/16/18 20:47 Normal Saline IV 02/16/18 21:35 999 mls/hr ONETIME ONE Administration Sodium Chloride 1,000 mls @ 999 mls/hr 02/16/18 21:30 02/16/18 21:40 Normal Saline IV 02/16/18 22:30 999 mls/hr ONETIME ONE Administration Lorazepam 2 mg 02/16/18 20:35 02/16/18 20:47 Ativan IVPUSH 02/16/18 20:36 2 mg ONETIME ONE Administration Ondansetron HCl 4 mg 02/16/18 20:39 02/16/18 20:47 Zofran IVPUSH 02/16/18 20:40 4 mg ONETIME ONE Administration Ondansetron HCl 4 mg 02/16/18 21:34 02/16/18 22:19 Zofran IVPUSH 02/16/18 21:35 4 mg ONETIME ONE Administration Sodium Chloride 10 ml 02/16/18 20:33 02/16/18 20:47 Saline Flush FLUSH 10 ml ASDIRECTED PRN Administration Keep Vein Open - Re-Assessments/Exams Free Text/Narrative Re-Assessment/Exam: 02/16/18 22:42 Review the patient's chart shows that he has had hypomagnesemia and hypokalemia in the past. His electrolytes are only slightly off today. No intervention required. He is quite dry. I did give him to 2 bags of IV fluid. He has not high seizures since coming to the ER. Vomiting has subsided. His heart rate has come down into the low 100s upper 90s. At this point patient has gotten a second bag of fluid. He would like to go home. Discharge instructions as documented. Departure - Departure Time of Disposition: 22:42 Disposition: Home, Self-Care 01 Condition: Fair Clinical Impression: Seizure - Discharge Information Instructions: Seizure, Adult Referrals: PCP,None [Primary Care Provider] - Zain Falcon MD [Physician] - Forms: ED Department Discharge Additional Instructions: Continue with your current medications. Follow-up with your neurologist. No driving or operating machinery x 6 months due to seizure tonight. Rest. make sure you are drinking plenty of fluids. Do not drink any alcohol or use any illicit drugs. Please return to the ER if your symptoms change or worsen.
== END 2018-02-16 22:46 | disposition home or self-care (01) ==
LOC: JD.ED 19:50 → SUPCPDRO 19:50 → JD.ED 22:46
DX: G40.909 Epilepsy, unspecified, not intractable, without status epilepticus (principal); F17.210 Nicotine dependence, cigarettes, uncomplicated; K21.9 Gastro-esophageal reflux disease without esophagitis; Z91.048 Other nonmedicinal substance allergy status; Z79.899 Other long term (current) drug therapy
CPT/HCPCS: 36415; 80053; 80306; 81001; 82550; 83735; 84100; 85025; 96361; 96374; 96375; 96376; 99284; G0480; J2060; J2405; J7040; J7050

== ENCOUNTER 2018-03-12 14:53 | Emergency (ER) | payer OTHER, SELFPAY ==
[2018-03-12] MEDS ORDERED: chlordiazePOXIDE 25 MG Cap PO ONE ×3 (15:44→18:11)
[2018-03-12] MEDS ORDERED: LORazepam 2 MG/ML SDV IVPUSH ONE (15:44)
[2018-03-12] MEDS ORDERED: Sodium Chloride 0.9% 10 ML Syringe FLUSH PRN (15:46)
--- NOTE | 2018-03-12 15:46 | EDM.PDOC ---
ED HPI GENERAL MEDICAL PROBLEM - General Chief Complaint: Neurological Problem Stated Complaint: SEIZURE Time Seen by Provider: 03/12/18 15:20 Source of Information: Reports: Patient History Limitations: Reports: No Limitations - History of Present Illness INITIAL COMMENTS - FREE TEXT/NARRATIVE: 22 y/o M with hx ETOH dependence and ETOH withdrawal seizures presents with seizure and withdrawal symptoms. States he's been drinking heavily for some time. Last drink was last night. Unable to quantify how much he's been drinking. Today he had a seizure that occurred just prior to arrival. Witnessed by roommate who isn't here. He's accompanied by a friend who states the entire seizure lasted about 3 minutes. Patient doesn't recall any details. He feels like he's withdrawing from ETOH but has no other complaint. Denies recent illness or injury. No vomiting. He did bite his tongue, no incontinence. Denies drug use. When asked, states he's more interested in cutting back than actually quitting drinking. He also states he's taking lamotrigine and keppra but it's not clear that he has a primary seizure disorder, states he only seizes when withdrawing. He did take these home meds this morning. - Related Data Allergies Allergy/AdvReac Type Severity Reaction Status Date / Time seasonal Allergy Other Uncoded 03/12/18 15:15 Home Meds: Home Meds levETIRAcetam [Keppra] 1,000 mg PO BID #60 tablet 01/28/17 [Rx] lamoTRIgine [Lamotrigine] 150 mg PO BID 09/01/17 [History] Past Medical History HEENT History: Reports: Other (See Below) Other HEENT History: missing tooth. Gastrointestinal History: Reports: Gastritis, GERD Musculoskeletal History: Reports: Fracture Other Musculoskeletal History: broke both arms, ankle Neurological History: Reports: Seizure Psychiatric History: Reports: Anxiety - Past Surgical History Musculoskeletal Surgical History: Reports: ORIF Social & Family History - Family History Family Medical History: Noncontributory Respiratory: Reports: COPD - Tobacco Use Smoking Status *Q: Current Every Day Smoker Years of Tobacco use: 5 Packs/Tins Daily: 0.8 - Caffeine Use Caffeine Use: Reports: Coffee, Energy Drinks, Soda, Tea - Recreational Drug Use Recreational Drug Use: No - Living Situation & Occupation Living situation: Reports: Single, Other (with friends) Occupation: Unemployed ED ROS GENERAL - Review of Systems Review Of Systems: See Below Constitutional: Denies: Fever HEENT: Reports: Other (tongue wound) Respiratory: Denies: Shortness of Breath Cardiovascular: Denies: Chest Pain Endocrine: Reports: No Symptoms GI/Abdominal: Denies: Abdominal Pain : Reports: No Symptoms Musculoskeletal: Reports: No Symptoms Skin: Reports: No Symptoms Neurological: Reports: Seizure Psychiatric: Reports: Other (ETOH abuse) - Physical Exam Exam: See Below Exam Limited By: No Limitations General Appearance: Alert, WD/WN, No Apparent Distress, Other (mildly tremulous) Eye Exam: Bilateral Eye: EOMI, Normal Inspection Ears: Normal External Exam Nose: Normal Inspection Throat/Mouth: Normal Oropharynx, Normal Voice, No Airway Compromise, Other (+ minor tongue abrasion on R lateral surface, no bleeding ) Head Exam: Atraumatic, Normocephalic Neck: Normal Inspection Respiratory/Chest: No Respiratory Distress, Lungs Clear, Normal Breath Sounds Cardiovascular: Normal Peripheral Pulses, Regular Rate, Rhythm, No Edema, No Murmur GI/Abdominal: Soft, Non-Tender, No Distention. No: Rebound Neuro Exam (Abbreviated): Alert, Oriented, CN II-XII Intact, Normal Cognition, No Motor/Sensory Deficits Back Exam: Normal Inspection Extremities: Normal Inspection, Other (mildly tremulous) Psychiatric: Normal Affect, Normal Mood Skin Exam: Warm, Dry, Intact, Normal Color, No Rash Course - Vital Signs Last Recorded V/S: Last Vital Signs Temp 36.8 C 03/12/18 15:16 Pulse 114 H 03/12/18 15:16 Resp 18 03/12/18 18:20 BP 147/99 H 03/12/18 18:20 Pulse Ox 97 03/12/18 18:20 - Orders/Labs/Meds Orders: Active Orders 24 hr Category Date Time Status EKG 12 Lead [EKG Documentation Completion] [RC] STAT Care 03/12/18 15:45 Active Peripheral IV Care [RC] . DIRECTED Care 03/12/18 15:45 Active Peripheral IV Care [RC] . DIRECTED Care 03/12/18 15:46 Active DRUG SCREEN, URINE [URCHEM] Stat Lab 03/12/18 18:01 Ordered Peripheral IV Insertion Adult [OM.PC] Routine Oth 03/12/18 15:45 Ordered Labs: Laboratory Tests 03/12/18 03/12/18 03/12/18 Range/Units 15:35 15:35 18:01 WBC 5.50 (4.23-9.07) K/mm3 RBC 4.45 L (4.63-6.08) M/mm3 Hgb 14.8 (13.7-17.5) gm/L Hct 42.1 (40.1-51.0) % MCV 94.6 H (79.0-92.2) fl MCH 33.3 H (25.7-32.2) pg MCHC 35.2 (32.2-35.5) g/dl RDW Std Deviation 42.1 (35.1-43.9) fL Plt Count 132 L (163-337) K/mm3 MPV 9.4 (9.4-12.3) fl Neut % (Auto) 77.6 H (34.0-67.9) % Lymph % (Auto) 13.1 L (21.8-53.1) % [place] % (Auto) 8.2 (5.3-12.2) % Eos % (Auto) 0.5 L (0.8-7.0) Baso % (Auto) 0.4 (0.1-1.2) % Neut # (Auto) 4.27 (1.78-5.38) K/mm3 Lymph # (Auto) 0.72 L (1.32-3.57) K/mm3 [place] # (Auto) 0.45 (0.30-0.82) K/mm3 Eos # (Auto) 0.03 L (0.04-0.54) K/mm3 Baso # (Auto) 0.02 (0.01-0.08) K/mm3 Sodium 134 L (136-145) mEq/L Potassium 3.5 (3.5-5.1) mEq/L Chloride 92 L (98-107) mEq/L Carbon Dioxide 24 (21-32) mEq/L Anion Gap 21.5 H (5-15) BUN 10 (7-18) mg/dL Creatinine 0.8 (0.7-1.3) mg/dL Est Cr Clr Drug Dosing 156.63 mL/min Estimated GFR (MDRD) > 60 (>60) mL/min BUN/Creatinine Ratio 12.5 L (14-18) Glucose 141 H (74-106) mg/dL Calcium 9.6 (8.5-10.1) mg/dL Magnesium 1.3 L (1.8-2.4) mg/dl Total Bilirubin 1.4 H (0.2-1.0) mg/dL AST 156 H (15-37) U/L ALT 74 H (16-63) U/L Alkaline Phosphatase 81 (46-116) U/L Total Protein 7.9 (6.4-8.2) g/dl Albumin 4.3 (3.4-5.0) g/dl Globulin 3.6 gm/dL Albumin/Globulin Ratio 1.2 (1-2) Lipase 198 (73-393) U/L Urine Opiates Screen Negative (NEGATIVE) Ur Buprenorphine Scrn Negative (NEGATIVE) Ur Oxycodone Screen Negative (NEGATIVE) Urine Methadone Screen Negative (NEGATIVE) Ur Propoxyphene Screen Negative (NEGATIVE) Ur Barbiturates Screen Negative (NEGATIVE) Ur Tricyclics Screen Negative (NEGATIVE) Ur Phencyclidine Scrn Negative (NEGATIVE) Ur Amphetamine Screen Negative (NEGATIVE) U Methamphetamines Scrn Negative (NEGATIVE) U Benzodiazepines Scrn Presumptive positive H (NEGATIVE) U Cocaine Metab Screen Negative (NEGATIVE) U Marijuana (THC) Screen Negative (NEGATIVE) Ethyl Alcohol 0.00 (0.00) gm% Meds: Medications Discontinued Medications Generic Name Dose Route Start Last Admin Trade Name Freq PRN Reason Stop Dose Admin Chlordiazepoxide HCl 50 mg 03/12/18 15:44 03/12/18 16:04 Librium PO 03/12/18 15:45 50 mg ONETIME ONE Administration Chlordiazepoxide HCl 50 mg 03/12/18 17:35 03/12/18 17:59 Librium PO 03/12/18 17:36 50 mg ONETIME ONE Administration Chlordiazepoxide HCl 75 mg 03/12/18 18:11 03/12/18 18:21 Librium PO 03/12/18 18:12 75 mg ONETIME ONE Administration Magnesium Sulfate 2 gm/ Premix 50 mls @ 25 mls/hr 03/12/18 16:16 03/12/18 16: 44 IV 03/12/18 18:15 25 mls/hr ONETIME ONE Administration Sodium Chloride 1,000 mls @ 1,000 mls/hr 03/12/18 16:17 03/12/18 16:44 Normal Saline IV 03/12/18 17:16 1,000 mls/hr ONETIME ONE Administration Lorazepam 6 mg 03/12/18 15:44 03/12/18 16:05 Ativan IVPUSH 03/12/18 15:45 6 mg ONETIME ONE Administration Sodium Chloride 10 ml 03/12/18 15:46 03/12/18 16:05 Saline Flush FLUSH 10 ml ASDIRECTED PRN Administration Keep Vein Open - Re-Assessments/Exams Free Text/Narrative Re-Assessment/Exam: 03/12/18 Tachycardic and tremulous, has required high doses of benzodiazepines to control withdrawal symptoms. Ativan 6mg IV and librium given, will reassess. Lab significant for alcohol level of 0, mild hyponatremia, otherwise unremarkable. EKG showed normal sinus rhythm, no significant abnormality. Withdrawal symptoms were initially controlled, he did begin to get more tachycardic and tremulous again. Given additional 50 mg of Librium followed by 75 mg of Librium. I encouraged him to be admitted for alcohol withdrawal. I am concerned given his history of seizures with alcohol withdrawal plus he appears to continue to be in withdrawal even after fairly high doses of benzodiazepines. However he refuses to be admitted. States that he feels okay and he just wants to go home. I discussed the risks of leaving, specifically severe withdrawal and seizures which could be life-threatening. Patient continues to refuse admission. He states he'll return if he starts to feel worse. I encouraged him to come back at any time should he feel worse and also to follow-up with Evelina for guidance about his substance abuse problem. He understood. 03/13/18 09:02 Departure - Departure Time of Disposition: 18:30 Disposition: Home, Self-Care 01 Clinical Impression: Seizure Alcohol withdrawal Qualifiers: Complication of substance-induced condition: with unspecified complication Qualified Code(s): F10.239 - Alcohol dependence with withdrawal, unspecified - Discharge Information Instructions: Alcohol Use Disorder, Delirium Tremens, [id number], Alcohol Withdrawal, [id number] Referrals: PCP,None [Primary Care Provider] - Forms: ED Department Discharge Additional Instructions: 1. Return to the ED if you have worsening withdrawal symptoms, a seizure, or any other concerns 2. Follow up with Evelina for help with your alcohol problem. Call [phone] for more information. - My Orders Last 24 Hours: My Active Orders 03/12/18 15:45 EKG 12 Lead [EKG Documentation Completion] [RC] STAT Peripheral IV Care [RC] . DIRECTED Peripheral IV Insertion Adult [OM.PC] Routine 03/12/18 15:46 Peripheral IV Care [RC] . DIRECTED 03/12/18 18:01 DRUG SCREEN, URINE [URCHEM] Stat - Assessment/Plan Last 24 Hours: My Active Orders 03/12/18 15:45 EKG 12 Lead [EKG Documentation Completion] [RC] STAT Peripheral IV Care [RC] . DIRECTED Peripheral IV Insertion Adult [OM.PC] Routine 03/12/18 15:46 Peripheral IV Care [RC] . DIRECTED 03/12/18 18:01 DRUG SCREEN, URINE [URCHEM] Stat
[2018-03-12] MEDS ORDERED: Magnesium Sulfate/Water 2 GM in Premix Bag 1 BAG IV ONE (16:16)
[2018-03-12] MEDS ORDERED: Sodium Chloride 0.9% 1,000 ML IV ONE (16:17)
[2018-03-12 19:03] VITALS: BP 147/99
== END 2018-03-12 18:25 | disposition home or self-care (01) ==
LOC: JD.ED 14:53
DX: R56.9 Unspecified convulsions (principal); F10.239 Alcohol dependence with withdrawal, unspecified; F17.210 Nicotine dependence, cigarettes, uncomplicated; Z79.899 Other long term (current) drug therapy
CPT/HCPCS: 36415; 80053; 80306; 83690; 83735; 85025; 93005; 96361; 96365; 96375; 99285; A9270; G0480; J2060; J7040; J7050; 99284; J3475

== ENCOUNTER 2018-04-14 20:47 | Inpatient (IN) | payer OTHER, SELFPAY ==
[2018-04-14] MEDS ORDERED: Sodium Chloride 0.9% 1,000 ML IV ONE (21:33)
[2018-04-14] MEDS ORDERED: Sodium Chloride 0.9% 10 ML Syringe FLUSH PRN (21:34)
[2018-04-14] MEDS ORDERED: LORazepam 2 MG/ML SDV IVPUSH ONE ×2 (21:34→22:51)
[2018-04-14] MEDS ORDERED: Thiamine 100 MG in Sodium Chloride 0.9% 100 ML IV ONE (21:39)
[2018-04-14] MEDS ORDERED: Folic Acid 1 MG Tab PO ONE (21:39)
[2018-04-14] MEDS ORDERED: LORazepam 2 MG/ML SDV ONE ×2 (21:50→22:53)
[2018-04-14] MEDS ORDERED: levETIRAcetam 1,000 MG in Sodium Chloride 0.9% 100 ML IV ONE (21:55)
--- NOTE | 2018-04-14 22:18 | EDM.PDOC ---
ED HPI GENERAL MEDICAL PROBLEM - General Chief Complaint: Neuro Symptoms/Deficits Stated Complaint: SIEZURE Time Seen by Provider: 04/14/18 21:18 Source of Information: Reports: Patient History Limitations: Reports: No Limitations - History of Present Illness INITIAL COMMENTS - FREE TEXT/NARRATIVE: 22-year-old male presents with his grandmother for evaluation and treatment following a seizure. Patient is known to the ER and has been seen on several occasions for seizures. Most recent visit was beginning of March. He states he has not had a seizure since then. He is currently on Lamictal and Keppra which he states he has been faithfully taking. Today the patient was loading a uhaul. His grandmother reports he was not feeling well earlier. States he was loading a uhaul when he had a generalized tonic-clonic seizure. Reports no head trauma. Last approximately 1 minute. No loss of bladder. He did not bite his tongue. He states that he vomited 2 times after the seizure. He does have a headache at this time. Patient reports that his last alcohol was on Friday. He has not been using any street drugs. Neurologist is Dr. kearney in [place]. Currently has an appointment to see him in May. Onset: Today - Related Data Allergies Allergy/AdvReac Type Severity Reaction Status Date / Time seasonal Allergy Other Uncoded 04/14/18 21:07 Home Meds: Home Meds levETIRAcetam [Keppra] 1,000 mg PO BID #60 tablet 01/28/17 [Rx] lamoTRIgine [Lamotrigine] 150 mg PO BID 09/01/17 [History] Past Medical History HEENT History: Reports: Other (See Below) Other HEENT History: missing tooth. Gastrointestinal History: Reports: Gastritis, GERD Musculoskeletal History: Reports: Fracture Other Musculoskeletal History: broke both arms, ankle Neurological History: Reports: Seizure Psychiatric History: Reports: Addiction, Anxiety - Past Surgical History Musculoskeletal Surgical History: Reports: ORIF Social & Family History - Family History Family Medical History: Noncontributory Respiratory: Reports: COPD - Tobacco Use Smoking Status *Q: Current Every Day Smoker Years of Tobacco use: 4 Packs/Tins Daily: 0.5 - Caffeine Use Caffeine Use: Reports: Soda - Recreational Drug Use Recreational Drug Use: Yes Recreational Drug Type: Reports: Marijuana/Hashish - Living Situation & Occupation Living situation: Reports: Single, Other (with friends) Occupation: Unemployed ED ROS GENERAL - Review of Systems Review Of Systems: See Below Constitutional: Reports: Malaise. Denies: Fever, Chills Respiratory: Denies: Cough GI/Abdominal: Reports: Nausea, Vomiting Neurological: Reports: Headache, Seizure. Denies: Numbness, Tingling - Physical Exam Exam: See Below Exam Limited By: No Limitations General Appearance: Alert, WD/WN, Anxious, Mild Distress, Thin Throat/Mouth: Normal Inspection, Normal Voice, No Airway Compromise Respiratory/Chest: No Respiratory Distress, Lungs Clear, Normal Breath Sounds Cardiovascular: Normal Peripheral Pulses, No Murmur, Tachycardia GI/Abdominal: Soft, Non-Tender Neuro Exam (Abbreviated): Alert, Oriented, Normal Cognition Psychiatric: Normal Affect, Normal Mood Skin Exam: Warm, Dry, Normal Color EKG INTERPRETATION EKG Date: 04/14/18 Time: 22:55 Rhythm: Other (sinus tach) Rate (Beats/Min): 107 [place]: Normal P-Wave: Present QRS: Normal ST-T: Normal QT: Normal EKG Interpretation Comments: Sinus tach at 107 bpm. NO acute changes. Reviewed by myself and Dr. Wiseman. Course - Vital Signs Last Recorded V/S: Last Vital Signs Temp 98.8 F 04/14/18 21:00 Pulse 112 H 04/14/18 21:54 Resp 22 H 04/14/18 21:54 BP 157/65 H 04/14/18 21:54 Pulse Ox 93 L 04/14/18 21:54 - Orders/Labs/Meds Orders: Active Orders 24 hr Category Date Time Status EKG 12 Lead [EKG Documentation Completion] [RC] STAT Care 04/14/18 22:49 Ordered Peripheral IV Care [RC] . DIRECTED Care 04/14/18 21:34 Active DRUG SCREEN, URINE [URCHEM] Stat Lab 04/14/18 21:34 Ordered LAMOTRIGINE, SERUM [REF] Stat Lab 04/14/18 21:34 Ordered LEVETIRACETAM, S [REF] Stat Lab 04/14/18 21:34 Ordered Magnesium Rep Pharmacy to Dose [Pharmacy to Dose - Med 04/14/18 22:30 Active Magnesium Replacement] 1 dose .XX ASDIRECTED Magnesium Sulfate/Water [Magnesium Sulfate 2 GM in Med 04/14/18 22:31 Active Water 50 ML] 2 gm Premix Bag 1 bag IV ONETIME Magnesium Sulfate/Water [Magnesium Sulfate 2 GM in Med 04/14/18 22:46 Active Water 50 ML] 2 gm Premix Bag 1 bag IV ONETIME Magnesium Sulfate/Water [Magnesium Sulfate 2 GM in Med 04/14/18 22:46 Active Water 50 ML] 2 gm Premix Bag 1 bag IV ONETIME Sodium Chloride 0.9% [Saline Flush] Med 04/14/18 21:34 Active 10 ml FLUSH ASDIRECTED PRN Peripheral IV Insertion Adult [OM.PC] Routine Oth 04/14/18 21:33 Ordered Medication Orders Magnesium Sulfate 2 gm/ Premix 50 mls @ 50 mls/hr IV ONETIME ONE Stop: 04/14/18 23:30 Last Admin: 04/14/18 22:43 Dose: 50 mls/hr Magnesium Sulfate 2 gm/ Premix 50 mls @ 50 mls/hr IV ONETIME ONE Stop: 04/14/18 23:45 Magnesium Sulfate 2 gm/ Premix 50 mls @ 50 mls/hr IV ONETIME ONE Stop: 04/14/18 23:45 Magnesium Sulfate (Pharmacy To Dose - Magnesium Replacement) 1 dose .XX ASDIRECTED NATHANAEL Sodium Chloride (Saline Flush) 10 ml FLUSH ASDIRECTED PRN PRN Reason: Keep Vein Open Last Admin: 04/14/18 21:56 Dose: 10 ml Labs: Laboratory Tests 04/14/18 04/14/18 Range/Units 21:50 21:50 WBC 4.61 (4.23-9.07) K/mm3 RBC 3.53 L (4.63-6.08) M/mm3 Hgb 11.9 L (13.7-17.5) gm/L Hct 33.8 L (40.1-51.0) % MCV 95.8 H (79.0-92.2) fl MCH 33.7 H (25.7-32.2) pg MCHC 35.2 (32.2-35.5) g/dl RDW Std Deviation 42.2 (35.1-43.9) fL Plt Count 237 (163-337) K/mm3 MPV 9.1 L (9.4-12.3) fl Neut % (Auto) 68.3 H (34.0-67.9) % Lymph % (Auto) 15.0 L (21.8-53.1) % [place] % (Auto) 15.2 H (5.3-12.2) % Eos % (Auto) 0.4 L (0.8-7.0) Baso % (Auto) 0.9 (0.1-1.2) % Neut # (Auto) 3.15 (1.78-5.38) K/mm3 Lymph # (Auto) 0.69 L (1.32-3.57) K/mm3 [place] # (Auto) 0.70 (0.30-0.82) K/mm3 Eos # (Auto) 0.02 L (0.04-0.54) K/mm3 Baso # (Auto) 0.04 (0.01-0.08) K/mm3 Manual Slide Review Normal smear Sodium 138 (136-145) mEq/L Potassium 3.3 L (3.5-5.1) mEq/L Chloride 97 L (98-107) mEq/L Carbon Dioxide 26 (21-32) mEq/L Anion Gap 18.3 H (5-15) BUN 7 (7-18) mg/dL Creatinine 0.8 (0.7-1.3) mg/dL Est Cr Clr Drug Dosing 147.42 mL/min Estimated GFR (MDRD) > 60 (>60) mL/min BUN/Creatinine Ratio 8.8 L (14-18) Glucose 99 (74-106) mg/dL Calcium 9.1 (8.5-10.1) mg/dL Phosphorus 3.0 (2.6-4.7) mg/dL Magnesium 0.8 L (1.8-2.4) mg/dl Total Bilirubin 1.1 H (0.2-1.0) mg/dL AST 238 H (15-37) U/L ALT 174 H (16-63) U/L Alkaline Phosphatase 93 (46-116) U/L Total Protein 7.4 (6.4-8.2) g/dl Albumin 4.1 (3.4-5.0) g/dl Globulin 3.3 gm/dL Albumin/Globulin Ratio 1.2 (1-2) Ethyl Alcohol 0.02 (0.00) gm% Meds: Medications Generic Name Dose Route Start Last Admin Trade Name Freq PRN Reason Stop Dose Admin Magnesium Sulfate 2 gm/ Premix 50 mls @ 50 mls/hr 04/14/18 22:31 04/14/18 22: 43 IV 04/14/18 23:30 50 mls/hr ONETIME ONE Administration Magnesium Sulfate 2 gm/ Premix 50 mls @ 50 mls/hr 04/14/18 22:46 IV 04/14/18 23:45 ONETIME ONE Magnesium Sulfate 2 gm/ Premix 50 mls @ 50 mls/hr 04/14/18 22:46 IV 04/14/18 23:45 ONETIME ONE Magnesium Sulfate 1 dose 04/14/18 22:30 Pharmacy To Dose - Magnesium Replacement .XX ASDIRECTED NATHANAEL Sodium Chloride 10 ml 04/14/18 21:34 04/14/18 21:56 Saline Flush FLUSH 10 ml ASDIRECTED PRN Administration Keep Vein Open Discontinued Medications Generic Name Dose Route Start Last Admin Trade Name Antoine PRN Reason Stop Dose Admin Folic Acid 1 mg 04/14/18 21:39 Folic Acid PO 04/14/18 21:40 ONETIME ONE Sodium Chloride 1,000 mls @ 999 mls/hr 04/14/18 21:33 04/14/18 21:56 Normal Saline IV 04/14/18 22:33 999 mls/hr ONETIME ONE Administration Thiamine HCl 100 mg/ Sodium 101 mls @ 202 mls/hr 04/14/18 21:39 04/14/18 22: 28 Chloride IV 04/14/18 21:40 202 mls/hr ONETIME ONE Administration Levetiracetam 1,000 mg/ Sodium 110 mls @ 400 mls/hr 04/14/18 21:55 04/14/18 22:06 Chloride IV 04/14/18 22:09 400 mls/hr ONETIME ONE Administration Magnesium Sulfate 2 gm/ Premix 50 mls @ 50 mls/hr 04/14/18 22:27 IV 04/14/18 23:26 ONETIME ONE Lorazepam 2 mg 04/14/18 21:34 04/14/18 21:57 Ativan IVPUSH 04/14/18 21:35 2 mg ONETIME ONE Administration Lorazepam Confirm 04/14/18 21:50 04/14/18 21:57 Ativan Administered 04/14/18 21:51 Not Given Dose 2 mg .ROUTE .STK-MED ONE Lorazepam 2 mg 04/14/18 22:51 04/14/18 22:57 Ativan IVPUSH 04/14/18 22:52 2 mg ONETIME ONE Administration Lorazepam Confirm 04/14/18 22:53 Ativan Administered 04/14/18 22:54 Dose 2 mg .ROUTE .STK-MED ONE Ondansetron HCl 4 mg 04/14/18 22:49 04/14/18 22:56 Zofran IVPUSH 04/14/18 22:50 4 mg ONETIME ONE Administration - Re-Assessments/Exams Free Text/Narrative Re-Assessment/Exam: 04/14/18 22:26 The IV had been established but the Ativan had not been given when the patient had a approximately 30-45 second generalized tonic-clonic seizure. He was confused and postictal afterwards. He was immediately given the 2 mg IV Ativan which seemed to help abort the seizure. 1000 mg Keppra ordered. 04/14/18 23:01 Patient continues to be shaky. An additional 2 mg IV Ativan ordered. Given his low magnesium of 0.8 do feel he needs to stay in the hospital. JONNY Holden, discussed the dosage with pharmacy and he will require at least 6 g of magnesium. 2 grams has been started. Discussed with the patient. His grandmother is present at bedside. He is agreeable to staying in the hospital. Case discussed with Dr. Noe, hospitalist occupational therapist assistants. He agrees to admission. He will go to the ICU. 04/14/18 23:08 Patient informed he will be staying in the ICU for hypomagnesemia and seizures. In agreement. Departure - Departure Time of Disposition: 23:08 Disposition: Admitted As Inpatient 65 Condition: Serious Clinical Impression: Hypomagnesemia, Hypokalemia, Abnormal LFTs, Seizure Alcohol withdrawal Qualifiers: Complication of substance-induced condition: with unspecified complication Qualified Code(s): F10.239 - Alcohol dependence with withdrawal, unspecified - Discharge Information Referrals: PCP,None [Primary Care Provider] - Zain Falcon MD [Physician] - Forms: ED Department Discharge Additional Instructions: Patient to be admitted to the ICU under Dr. Noe for hypomagnesemia, alcohol abuse and seizures. - My Orders Last 24 Hours: My Active Orders 04/14/18 21:33 Peripheral IV Insertion Adult [OM.PC] Routine 04/14/18 21:34 Peripheral IV Care [RC] . DIRECTED DRUG SCREEN, URINE [URCHEM] Stat LAMOTRIGINE, SERUM [REF] Stat LEVETIRACETAM, S [REF] Stat Sodium Chloride 0.9% [Saline Flush] 10 ml FLUSH ASDIRECTED PRN 04/14/18 22:30 Magnesium Rep Pharmacy to Dose [Pharmacy to Dose - Magnesium Replacement] 1 dose .XX ASDIRECTED 04/14/18 22:31 Magnesium Sulfate/Water [Magnesium Sulfate 2 GM in Water 50 ML] 2 gm Premix Bag 1 bag IV ONETIME 04/14/18 22:46 Magnesium Sulfate/Water [Magnesium Sulfate 2 GM in Water 50 ML] 2 gm Premix Bag 1 bag IV ONETIME Magnesium Sulfate/Water [Magnesium Sulfate 2 GM in Water 50 ML] 2 gm Premix Bag 1 bag IV ONETIME 04/14/18 22:49 EKG 12 Lead [EKG Documentation Completion] [RC] STAT - Assessment/Plan Last 24 Hours: My Active Orders 04/14/18 21:33 Peripheral IV Insertion Adult [OM.PC] Routine 04/14/18 21:34 Peripheral IV Care [RC] . DIRECTED DRUG SCREEN, URINE [URCHEM] Stat LAMOTRIGINE, SERUM [REF] Stat LEVETIRACETAM, S [REF] Stat Sodium Chloride 0.9% [Saline Flush] 10 ml FLUSH ASDIRECTED PRN 04/14/18 22:30 Magnesium Rep Pharmacy to Dose [Pharmacy to Dose - Magnesium Replacement] 1 dose .XX ASDIRECTED 04/14/18 22:31 Magnesium Sulfate/Water [Magnesium Sulfate 2 GM in Water 50 ML] 2 gm Premix Bag 1 bag IV ONETIME 04/14/18 22:46 Magnesium Sulfate/Water [Magnesium Sulfate 2 GM in Water 50 ML] 2 gm Premix Bag 1 bag IV ONETIME Magnesium Sulfate/Water [Magnesium Sulfate 2 GM in Water 50 ML] 2 gm Premix Bag 1 bag IV ONETIME 04/14/18 22:49 EKG 12 Lead [EKG Documentation Completion] [RC] STAT
[2018-04-14] MEDS ORDERED: Magnesium Sulfate/Water 2 GM in Premix Bag 1 BAG IV ONE ×6 (22:27→22:46)
[2018-04-14] MEDS ORDERED: Ondansetron 4 MG/2 ML SDV IVPUSH ONE (22:49)
[2018-04-14] MEDS ORDERED: Nicotine 21 MG/24 Hr Patch TRDERM PRN (23:30)
[2018-04-14] MEDS ORDERED: oxyCODONE 5 MG Tab PO PRN (23:33)
[2018-04-14] MEDS ORDERED: Bisacodyl 5 MG Tab PO PRN (23:33)
[2018-04-14] MEDS ORDERED: LORazepam 2 MG/ML SDV IV PRN (23:33)
[2018-04-14] MEDS ORDERED: Ondansetron 4 MG/2 ML SDV IV PRN (23:33)
[2018-04-14] MEDS ORDERED: Promethazine 12.5 MG in Sodium Chloride 0.9% 50 ML IV PRN (23:33)
[2018-04-14] MEDS ORDERED: HYDROmorphone 0.5 MG/0.5 ML SYRINGE IVPUSH PRN (23:33)
[2018-04-14] MEDS ORDERED: Polyethylene Glycol 3350 Powder 17 GM Packet PO PRN (23:33)
[2018-04-14] MEDS ORDERED: Albuterol/Ipratropium 3.0-0.5 MG/3 ML Neb Soln NEB PRN (23:33)
[2018-04-14] MEDS ORDERED: Ibuprofen 600 MG Tab PO PRN (23:33)
[2018-04-14] MEDS ORDERED: Docusate Sodium 100 MG Cap PO PRN (23:33)
[2018-04-14] MEDS ORDERED: chlordiazePOXIDE 25 MG Cap PO PRN (23:38)
[2018-04-14] MEDS ORDERED: Haloperidol Lactate 5 MG/ML SDV IM PRN (23:38)
[2018-04-14] MEDS ORDERED: cloNIDine 0.1 MG Tab PO PRN (23:38)
[2018-04-14] MEDS ORDERED: Sodium Chloride 0.9% 1,000 ML IV SCH (23:45)
[2018-04-14] MEDS ORDERED: chlordiazePOXIDE 25 MG Cap PO SCH (23:45)
[2018-04-14] MEDS ORDERED: hydrALAZINE 20 MG/ML SDV IVPUSH PRN (23:48)
[2018-04-14] MEDS ORDERED: Metoprolol Tartrate 5 MG/5 ML SDV IVPUSH PRN (23:48)
[2018-04-14] MEDS ORDERED: LORazepam 2 MG/ML SDV IVPUSH PRN (23:48)
[2018-04-14] MEDS ORDERED: QUEtiapine 25 MG Tab PO ONE (23:53)
--- NOTE | 2018-04-14 23:58 | PCM.HP ---
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 According to a family member, patient was not in his best health earlier today. There were no reports of trauma or injury. No tongue or mouth injury. No loss of bladder or bowel control. However the patient had 2 episodes of emesis and now a headache status post seizure. Patient is known to the emergency department for treatment of seizures on numerous occasion. His most recent visit was in March. According to him, he has not had one since then. Currently he is on Lamictal and Keppra for maintenance. He sees a Dr. Shankar in [facility] ([place] for his seizure. However he continues to drink alcohol. His last use was this past Friday. He denies illicit drug use. His initial workup in emergency department shows an RBC of 3.53, hemoglobin of 11.9, hematocrit of 32.8, MCV of 95.8, MCHC of 33.7, MPV of 9.1, neutrophils of 68.3%, lymphocytes of 15%, monocytes of 15.2%, and eosinophils of 0.4%. His chemistry is remarkable for potassium of 3.3, chloride of 97, anion gap of 18.3 , magnesium of 0.8, total bilirubin of 1.1, AST of 238, and ALT of 174. His UA is negative for UTI. His UDS is positive for THC. His blood alcohol level is 0.02. Patient's being admitted for evaluation and management of alcohol withdrawal symptoms and metabolic-induced seizure. He is full code. . - Related Data Allergies/Adverse Reactions: Allergies Allergy/AdvReac Type Severity Reaction Status Date / Time seasonal Allergy Other Uncoded 04/15/18 01:41 Home Medications: Home Meds levETIRAcetam [Keppra] 1,000 mg PO BID #60 tablet 01/28/17 [Rx] lamoTRIgine [Lamotrigine] 150 mg PO BID 09/01/17 [History] Past Medical History HEENT History: Reports: Other (See Below) Other HEENT History: missing tooth. Gastrointestinal History: Reports: Gastritis, GERD Musculoskeletal History: Reports: Fracture Other Musculoskeletal History: broke both arms, ankle Neurological History: Reports: Seizure Psychiatric History: Reports: Addiction, Anxiety - Past Surgical History Musculoskeletal Surgical History: Reports: ORIF Social & Family History - Family History Family Medical History: Noncontributory Respiratory: Reports: COPD - Tobacco Use Smoking Status *Q: Current Every Day Smoker Years of Tobacco use: 4 Packs/Tins Daily: 0.5 - Caffeine Use Caffeine Use: Reports: Soda - Recreational Drug Use Recreational Drug Use: Yes Recreational Drug Type: Reports: Marijuana/Hashish - Living Situation & Occupation Living situation: Reports: Single, Other (with friends) Occupation: Unemployed H&P Review of Systems - Review of Systems: Review Of Systems: See Below General: Reports: Weakness. Denies: Fever, Chills HEENT: Reports: No Symptoms Pulmonary: Denies: Shortness of Breath Cardiovascular: Denies: Chest Pain, Dyspnea on Exertion, Lightheadedness Gastrointestinal: Reports: Nausea, Vomiting. Denies: Abdominal Pain Genitourinary: Reports: No Symptoms Musculoskeletal: Reports: No Symptoms Skin: Reports: No Symptoms. Denies: Cyanosis, Jaundice, Mottled, Pallor, Bruising, Wound, Lesions Psychiatric: Denies: Depression, Anxiety, Agitation, Hallucinations, Suicidal Ideation Neurological: Reports: Headache, Tremors. Denies: Confusion, Trouble Speaking, Difficulty Walking, Weakness, Gait Disturbance Hematologic/Lymphatic: Reports: No Symptoms Immunologic: Reports: No Symptoms Exam - Exam Exam: See Below - Vital Signs Vital Signs: Last Vital Signs Temp 37.1 C 04/14/18 21:00 Pulse 112 H 04/14/18 21:54 Resp 22 H 04/14/18 21:54 BP 157/65 H 04/14/18 21:54 Pulse Ox 93 L 04/14/18 21:54 Weight: 72.575 kg - Exam General: Alert, Oriented, Cooperative, Mild Distress HEENT: Conjunctiva Clear, EACs Clear, Hearing Intact, Mucosa Moist & [place], Nares Patent, Normal Nasal Septum, Posterior Pharynx Clear, Pupils Equal, Pupils Reactive. No: EOMI Neck: Supple, Trachea Midline, +2 Carotid Pulse wo Bruit Lungs: Clear to Auscultation, Normal Respiratory Effort Cardiovascular: Regular Rhythm, Tachycardia GI/Abdominal Exam: Normal Bowel Sounds, Soft, Non-Tender, No Organomegaly, No Distention, No Abnormal Bruit, No Mass (Male) Exam: Deferred Rectal (Males) Exam: Deferred Back Exam: Normal Inspection, Full Range of Motion Extremities: Normal Inspection, Normal Range of Motion, Non-Tender, No Pedal Edema, Normal Capillary Refill Peripheral Pulses: 3+: Posterior Tibial (L), Posterior Tibial (R), Dorsalis Pedis (L), Dorsalis Pedis (R) Skin: Warm, Dry, Intact Neuro Extensive - Mental Status: Oriented x3, Normal Cognition, Memory Intact, Nl Response to Commands Neuro Extensive - Motor, Sensory, Reflexes: CN II-XII Intact, Tremor Psychiatric: Alert, Anxious, Withdrawal Symptoms. No: Suicidal Ideation - Patient Data Lab Results Last 24 hrs: Laboratory Results - last 24 hr 04/14/18 04/14/18 Range/Units 21:50 21:50 WBC 4.61 (4.23-9.07) K/mm3 RBC 3.53 L (4.63-6.08) M/mm3 Hgb 11.9 L (13.7-17.5) gm/L Hct 33.8 L (40.1-51.0) % MCV 95.8 H (79.0-92.2) fl MCH 33.7 H (25.7-32.2) pg MCHC 35.2 (32.2-35.5) g/dl RDW Std Deviation 42.2 (35.1-43.9) fL Plt Count 237 (163-337) K/mm3 MPV 9.1 L (9.4-12.3) fl Neut % (Auto) 68.3 H (34.0-67.9) % Lymph % (Auto) 15.0 L (21.8-53.1) % [place] % (Auto) 15.2 H (5.3-12.2) % Eos % (Auto) 0.4 L (0.8-7.0) Baso % (Auto) 0.9 (0.1-1.2) % Neut # (Auto) 3.15 (1.78-5.38) K/mm3 Lymph # (Auto) 0.69 L (1.32-3.57) K/mm3 [place] # (Auto) 0.70 (0.30-0.82) K/mm3 Eos # (Auto) 0.02 L (0.04-0.54) K/mm3 Baso # (Auto) 0.04 (0.01-0.08) K/mm3 Manual Slide Review Normal smear Sodium 138 (136-145) mEq/L Potassium 3.3 L (3.5-5.1) mEq/L Chloride 97 L (98-107) mEq/L Carbon Dioxide 26 (21-32) mEq/L Anion Gap 18.3 H (5-15) BUN 7 (7-18) mg/dL Creatinine 0.8 (0.7-1.3) mg/dL Est Cr Clr Drug Dosing 147.42 mL/min Estimated GFR (MDRD) > 60 (>60) mL/min BUN/Creatinine Ratio 8.8 L (14-18) Glucose 99 (74-106) mg/dL Calcium 9.1 (8.5-10.1) mg/dL Phosphorus 3.0 (2.6-4.7) mg/dL Magnesium 0.8 L (1.8-2.4) mg/dl Total Bilirubin 1.1 H (0.2-1.0) mg/dL AST 238 H (15-37) U/L ALT 174 H (16-63) U/L Alkaline Phosphatase 93 (46-116) U/L Total Protein 7.4 (6.4-8.2) g/dl Albumin 4.1 (3.4-5.0) g/dl Globulin 3.3 gm/dL Albumin/Globulin Ratio 1.2 (1-2) Ethyl Alcohol 0.02 (0.00) gm% Result Diagrams: 04/15/18 05:30 04/15/18 05:30 Problem List Initiated/Reviewed/Updated: Yes Orders Last 24hrs: Active Orders 24 hr Category Date Time Status Patient Status [ADT] Routine ADT 04/14/18 23:10 Active CIWAA Assessment [RC] Q15M Care 04/14/18 23:33 Active CIWAA Assessment [RC] Q1H Care 04/14/18 23:33 Active CIWAA Assessment [RC] Q30M Care 04/14/18 23:33 Active CIWAA Assessment [RC] Q4H Care 04/14/18 23:33 Active Cardiac Monitoring [RC] . DIRECTED Care 04/14/18 23:38 Active Cardiac Monitoring [RC] INTERMITTENT Care 04/14/18 23:31 Active EKG 12 Lead [EKG Documentation Completion] [RC] STAT Care 04/14/18 22:49 Active Height and Weight [RC] DAILY Care 04/14/18 23:30 Active Intake and Output [RC] QSHIFT Care 04/14/18 23:31 Active Notify Provider Consults [RC] ASDIRECTED Care 04/14/18 23:46 Active Notify Provider [RC] PRN Care 04/14/18 23:33 Active Oxygen Therapy [RC] PRN Care 04/14/18 23:30 Active Oxygen Therapy [RC] PRN Care 04/14/18 23:33 Active RT Aerosol Therapy [RC] ASDIRECTED Care 04/14/18 23:37 Active Up With Assistance [RC] ASDIRECTED Care 04/14/18 23:30 Active Up ad Susana [RC] ASDIRECTED Care 04/14/18 23:30 Active VTE/DVT Education [RC] PER UNIT ROUTINE Care 04/14/18 23:30 Active VTE/DVT Education [RC] PER UNIT ROUTINE Care 04/14/18 23:33 Active Vital Signs [RC] Q4H Care 04/14/18 23:30 Active Vital Signs [RC] Q4H Care 04/14/18 23:33 Active Consult to Case Management [CONS] Routine Cons 04/14/18 23:38 Active Consult to Physician [CONS] Routine Cons 04/14/18 23:38 Active Consult to Shank Cementer Hand [CONS] Routine Cons 04/14/18 23:38 Active Consult to Spiritual Care [CONS] Routine Cons 04/14/18 23:38 Active Respiratory Care Assess and Treatment [CONS] Routine Cons 04/14/18 23:38 Active Regular Diet [DIET] Diet 04/14/18 Breakfast Active BASIC METABOLIC PANEL,BMP [CHEM] AM Lab 04/15/18 05:11 Ordered BASIC METABOLIC PANEL,BMP [CHEM] AM Lab 04/16/18 05:11 Ordered BASIC METABOLIC PANEL,BMP [CHEM] AM Lab 04/17/18 05:11 Ordered CBC WITH AUTO DIFF [HEME] AM Lab 04/15/18 05:11 Ordered CBC WITH AUTO DIFF [HEME] AM Lab 04/16/18 05:11 Ordered CBC WITH AUTO DIFF [HEME] AM Lab 04/17/18 05:11 Ordered CULTURE URINE [RM] Stat Lab 04/14/18 23:38 Ordered DRUG SCREEN, URINE REFLEX [URCHEM] Stat Lab 04/14/18 23:48 Ordered DRUG SCREEN, URINE [URCHEM] Stat Lab 04/14/18 21:34 Ordered LAMOTRIGINE, SERUM [REF] Stat Lab 04/14/18 21:34 Ordered LEVETIRACETAM, S [REF] Stat Lab 04/14/18 21:34 Ordered MAGNESIUM [CHEM] AM Lab 04/15/18 05:11 Ordered MAGNESIUM [CHEM] AM Lab 04/16/18 05:11 Ordered MAGNESIUM [CHEM] AM Lab 04/17/18 05:11 Ordered UA W/MICROSCOPIC [URIN] Stat Lab 04/14/18 23:38 Ordered Albuterol/Ipratropium [DuoNeb 3.0-0.5 MG/3 ML] Med 04/14/18 23:33 Ordered 3 ml NEB Q4H PRN Bisacodyl [Dulcolax] Med 04/14/18 23:33 Ordered 5 mg PO DAILY PRN Docusate Sodium [Colace] Med 04/14/18 23:33 Ordered 100 mg PO BID PRN Docusate Sodium/Sennosides [Senna Plus] Med 04/14/18 23:33 Ordered 1 tab PO BID PRN Famotidine [Pepcid] Med 04/15/18 09:00 Ordered 20 mg PO Q12H Folic Acid Med 04/15/18 09:00 Ordered 1 mg PO DAILY HYDROmorphone [Dilaudid] Med 04/14/18 23:33 Ordered 0.25 mg IVPUSH Q2H PRN Haloperidol Lactate [Haldol] Med 04/14/18 23:38 Ordered 2 mg IM Q4H PRN Ibuprofen [Motrin] Med 04/14/18 23:33 Ordered 600 mg PO Q6H PRN LORazepam [Ativan] Med 04/14/18 23:33 Ordered 1 mg IV Q6H PRN LORazepam [Ativan] Med 04/14/18 23:48 Ordered 2 mg IVPUSH Q4H PRN Magnesium Rep Pharmacy to Dose [Pharmacy to Dose - Med 04/14/18 22:30 Active Magnesium Replacement] 1 dose .XX ASDIRECTED Magnesium Rep Pharmacy to Dose [Pharmacy to Dose - Med 04/14/18 23:45 Ordered Magnesium Replacement] 1 dose .XX ASDIRECTED Metoprolol Tartrate [Lopressor] Med 04/14/18 23:48 Ordered 5 mg IVPUSH Q4H PRN Multivitamins,Therapeutic [Thera] Med 04/15/18 09:00 Ordered 1 each PO DAILY Nicotine [Habitrol] Med 04/14/18 23:30 Ordered 21 mg TRDERM DAILY PRN Ondansetron [Zofran] Med 04/14/18 23:33 Ordered 4 mg IV Q6H PRN Pantoprazole [ProTONIX IV] Med 04/15/18 23:38 Once 40 mg IV DAILY ONE Polyethylene Glycol 3350 [MiraLAX] Med 04/14/18 23:33 Ordered 17 gm PO DAILY PRN Potassium Rep Pharmacy to Dose [Pharmacy to Dose - Med 04/14/18 23:45 Ordered Potassium Replacement] 1 dose .XX ASDIRECTED Promethazine [Phenergan] 12.5 mg Med 04/14/18 23:33 Ordered Sodium Chloride 0.9% [Normal Saline] 50 ml IV Q6H QUEtiapine [SEROquel] Med 04/14/18 23:53 Once 50 mg PO ONETIME ONE Scopolamine [Transderm-Scop] Med 04/14/18 23:52 Once 1.5 mg TRDERM Q72H ONE Sodium Chloride 0.9% [Normal Saline] 1,000 ml Med 04/14/18 23:45 Ordered IV ASDIRECTED Sodium Chloride 0.9% [Saline Flush] Med 04/14/18 21:34 Active 10 ml FLUSH ASDIRECTED PRN Thiamine [Vitamin B-1] Med 04/15/18 09:00 Ordered 100 mg PO DAILY chlordiazePOXIDE [Librium] Med 04/14/18 23:38 Ordered 25 mg PO Q8H PRN chlordiazePOXIDE [Librium] Med 04/14/18 23:45 Ordered See Protocol PO ASDIRECTED cloNIDine [Catapres] Med 04/14/18 23:38 Ordered 0.1 mg PO Q4H PRN hydrALAZINE [Apresoline] Med 04/14/18 23:48 Ordered 20 mg IVPUSH Q4H PRN lamoTRIgine Med 04/15/18 09:00 Active 150 mg PO BID levETIRAcetam [Keppra] Med 04/15/18 09:00 Active 1,000 mg PO BID oxyCODONE Med 04/14/18 23:33 Ordered 5 mg PO Q4H PRN Peripheral IV Insertion Adult [OM.PC] Routine Oth 04/14/18 21:33 Ordered Seizure Precautions [OM.PC] Routine Oth 04/14/18 23:38 Ordered Sequential Compression Device [OM.PC] Per Unit Routine Oth 04/14/18 23:32 Ordered Resuscitation Status Routine Resus Stat 04/14/18 23:30 Ordered Medication Orders Albuterol/Ipratropium (Duoneb 3.0-0.5 Mg/3 Ml) 3 ml NEB Q4H PRN PRN Reason: Shortness Of Breath/wheezing Bisacodyl (Dulcolax) 5 mg PO DAILY PRN PRN Reason: Constipation Chlordiazepoxide HCl (Librium) 0 mg PO ASDIRECTED NATHANAEL; Protocol Chlordiazepoxide HCl (Librium) 25 mg PO Q8H PRN PRN Reason: Withdrawal Symptoms Clonidine HCl (Catapres) 0.1 mg PO Q4H PRN PRN Reason: Agitation Docusate Sodium (Colace) 100 mg PO BID PRN PRN Reason: Constipation Famotidine (Pepcid) 20 mg PO Q12H NATHANAEL Folic Acid (Folic Acid) 1 mg PO DAILY NATHANAEL Stop: 04/17/18 09:01 Haloperidol Lactate (Haldol) 2 mg IM Q4H PRN PRN Reason: Agitation Hydralazine HCl (Apresoline) 20 mg IVPUSH Q4H PRN PRN Reason: Hypertension Hydromorphone HCl (Dilaudid) 0.25 mg IVPUSH Q2H PRN PRN Reason: Pain (severe 7-10) Promethazine HCl 12.5 mg/ (Sodium Chloride) 50.5 mls @ 100 mls/hr IV Q6H PRN PRN Reason: Nausea/Vomiting Sodium Chloride (Normal Saline) 1,000 mls @ 125 mls/hr IV ASDIRECTED NATHANAEL Ibuprofen (Motrin) 600 mg PO Q6H PRN PRN Reason: Pain (moderate 4-6) Lamotrigine (Lamotrigine) 150 mg PO BID [facility] Levetiracetam (Keppra) 1,000 mg PO BID [facility] Lorazepam (Ativan) 1 mg IV Q6H PRN PRN Reason: Anxiety Lorazepam (Ativan) 2 mg IVPUSH Q4H PRN PRN Reason: Seizures Magnesium Sulfate (Pharmacy To Dose - Magnesium Replacement) 1 dose .XX ASDIRECTED [facility] Magnesium Sulfate (Pharmacy To Dose - Magnesium Replacement) 1 dose .XX ASDIRECTED [facility] Metoprolol Tartrate (Lopressor) 5 mg IVPUSH Q4H PRN PRN Reason: Tachycardia Multivitamins (Thera) 1 each PO DAILY [facility] Nicotine (Habitrol) 21 mg TRDERM DAILY PRN PRN Reason: Tobacco Use Disorder Ondansetron HCl (Zofran) 4 mg IV Q6H PRN PRN Reason: Nausea/Vomiting Oxycodone HCl (Oxycodone) 5 mg PO Q4H PRN PRN Reason: Pain (moderate 4-6) Pantoprazole Sodium (Protonix Iv) 40 mg IV DAILY ONE Stop: 04/15/18 23:39 Polyethylene Glycol (Miralax) 17 gm PO DAILY PRN PRN Reason: Constipation Potassium Chloride (Pharmacy To Dose - Potassium Replacement) 1 dose .XX ASDIRECTED [facility] Quetiapine Fumarate (Seroquel) 50 mg PO ONETIME ONE Stop: 04/14/18 23:54 Scopolamine (Transderm-Scop) 1.5 mg TRDERM Q72H ONE Stop: 04/14/18 23:53 Senna/Docusate Sodium (Senna Plus) 1 tab PO BID PRN PRN Reason: Constipation Sodium Chloride (Saline Flush) 10 ml FLUSH ASDIRECTED PRN PRN Reason: Keep Vein Open Last Admin: 04/14/18 21:56 Dose: 10 ml Thiamine HCl (Vitamin B-1) 100 mg PO DAILY [facility] Assessment/Plan Comment:: Assessment/Plan: Acute: Seizure - 2/2 Metabolically Induced: ETOH +/- Severe Hypomagnesemia - Risk factors: ETOH Dependece, Hx/o Methamphetamine and Marijuana/Hashish Use - ARRON 0.02 and Mg 0.8 - Anti-seizure medications + ETOH = not a good combination - IV Keppra initiated in ED; will resume home dose and Lamotrigine in AM - IV Ativan PRN for Abortive Seizures - Keppra and Lamotrigine Levels ETOH Withdrawal Symptoms - Carries hx/o ETOH Detox in the past - He had significant tremors/shakes in ED - Received IV Ativan but minimally improved - CIWA Protocol - Seroquel/Librium/Clonidine - PRN IV Hydrazaline and Lopressor for BP and HR control - SA/Psych Consult Electrolytes Abnormality - Severe Hypomagnesemia - Mg 0.8 - 2/2 inadequate intake - Currently receiving IV infusion - Repeat level in AM - Hypokalemia - K 3.3 - 2/2 inadequate intake - Replete and Monitor Elevated LFTs/Transaminitis - Likely 2/2 ETOH Abuse - AST 238 and ALT 174 - Avoid Tylenol for now - IV Hydration Substance Abuse - Carries a hx/o Meth/THC and Hashish Use in the past - Positive for THC - SA consult Plan: Admit to ICU Resume Home Meds Routine AM Labs Seizure Precautions [facility] Protocol SW/CM for d/c planning Additional ordes as above Code status: 1
[2018-04-14] MEDS ORDERED: chlordiazePOXIDE 25 MG Cap PO ONE (23:59)
[2018-04-15] MEDS ORDERED: Potassium Chloride 20 MEQ Tab.ER PO SCH
[2018-04-15] MEDS ORDERED: Scopolamine 1.5 MG Transdermal Patch TRDERM ONE
[2018-04-15] MEDS ORDERED: Potassium Chloride 10 MEQ in Premix Bag 1 BAG IV SCH (01:00)
[2018-04-15] MEDS: Potassium Chloride 10 MEQ in Premix Bag 1 BAG IV SCH ×4 (04:50→08:08)
[2018-04-15 08:17] VITALS: BP 135/88
[2018-04-15] MEDS ORDERED: Folic Acid 1 MG Tab PO SCH (09:00)
[2018-04-15] MEDS ORDERED: Multivitamins,Therapeutic Tab PO SCH (09:00)
[2018-04-15] MEDS ORDERED: Famotidine 20 MG Tab PO SCH (09:00)
[2018-04-15] MEDS ORDERED: levETIRAcetam 500 MG Tab PO SCH (09:00)
[2018-04-15] MEDS ORDERED: lamoTRIgine 100 MG Tab PO SCH (09:00)
[2018-04-15] MEDS ORDERED: Thiamine 100 MG Tab PO SCH (09:00)
--- NOTE | 2018-04-15 09:56 | PCM.DCSUM1 ---
Discharge Summary - Hospital Course Free Text/Narrative:: The patient signed out AMA; he was told the risk for signing out including but not limited to: seizures, aspiration, . The patient should not drive, he requires additional treatment for alcohol abuse. Moreover, the Keppra level was pending at [place]. Substance abuse/psychiatric consults were requested but not completed before he left AMA. Please see the impression/plan portion of the DC summary section for details. HPI Initial Comments: This is 22 yo white male with past medical hx/o Chronic ETOH, Meth, and THC/ Hashis use who comes in for evaluation and treatment following a witnessed generalized tonic-clonic seizure lasting about a minute that happened while loading a [employer]. According to a family member, patient was not in his best health earlier today. There were no reports of trauma or injury. No tongue or mouth injury. No loss of bladder or bowel control. However the patient had 2 episodes of emesis and now a headache status post seizure. Patient is known to the emergency department for treatment of seizures on numerous occasion. His most recent visit was in March. According to him, he has not had one since then. Currently he is on Lamictal and Keppra for maintenance. He sees a Dr. Shankar in [facility] for his seizure. However he continues to drink alcohol. His last use was this past Friday. He denies illicit drug use. His initial workup in emergency department shows an RBC of 3.53, hemoglobin of 11.9, hematocrit of 32.8, MCV of 95.8, MCHC of 33.7, MPV of 9.1, neutrophils of 68.3%, lymphocytes of 15%, monocytes of 15.2%, and eosinophils of 0.4%. His chemistry is remarkable for potassium of 3.3, chloride of 97, anion gap of 18.3 , magnesium of 0.8, total bilirubin of 1.1, AST of 238, and ALT of 174. His UA is negative for UTI. His UDS is positive for THC. His blood alcohol level is 0.02. Patient's being admitted for evaluation and management of alcohol withdrawal symptoms and metabolic-induced seizure. He is full code. Diagnosis: Stroke: No - Discharge Data Discharge Date: 04/15/18 Discharge Disposition: Against Medical Advice 07 Condition: Good - Patient Summary/Data Consults: Consultations 04/14/18 23:38 Consult to Case Management [CONS] Routine Consult to [facility] [employer] [CONS] Routine Consult to Spiritual Care [CONS] Routine Respiratory Care Assess and Treatment [CONS] Routine 04/15/18 07:48 Consult for Substance Abuse [CONS] Routine Consult to Physician [CONS] Routine - Patient Instructions Diet: Regular Diet as Tolerated Activity: As Tolerated Driving: Do Not Drive Showering/Bathing: May Shower Notify Provider of: Fever, Increased Pain, Nausea and/or Vomiting - Discharge Plan Home Medications: Home Meds levETIRAcetam [Keppra] 1,000 mg PO BID #60 tablet 01/28/17 [Rx] lamoTRIgine [Lamotrigine] 150 mg PO BID 09/01/17 [History] Patient Handouts: Steps to Quit Smoking Forms: ED Department Discharge Referrals: PCP,None [Primary Care Provider] - Zain Falcon MD [Physician] - - Discharge Summary/Plan Comment DC Time >30 min.: No Discharge Summary/Plan Comment: Assessment/Plan: The patient signed out AMA. Acute: Seizure - 2/2 Metabolically Induced: ETOH +/- Severe Hypomagnesemia - Risk factors: ETOH Dependece, Hx/o Methamphetamine and Marijuana/Hashish Use - ARRON 0.02 and Mg 0.8 - Anti-seizure medications + ETOH = not a good combination - IV Keppra initiated in ED; will resume home dose and Lamotrigine in AM - IV Ativan PRN for Abortive Seizures - Keppra and Lamotrigine Levels ETOH Withdrawal Symptoms - Carries hx/o ETOH Detox in the past - He had significant tremors/shakes in ED - Received IV Ativan but minimally improved - [facility] Protocol - Seroquel/Librium/Clonidine - PRN IV Hydrazaline and Lopressor for BP and HR control - SA/Psych Consult Electrolytes Abnormality - Severe Hypomagnesemia - Mg 0.8 - 2/2 inadequate intake - Currently receiving IV infusion - Repeat level in AM - Hypokalemia - K 3.3 - 2/2 inadequate intake - Replete and Monitor Elevated LFTs/Transaminitis - Likely 2/2 ETOH Abuse - AST 238 and ALT 174 - Avoid Tylenol for now - IV Hydration Substance Abuse - Carries a hx/o Meth/THC and Hashish Use in the past - Positive for THC - SA consult Plan: Admit to ICU Resume Home Meds Routine AM Labs Seizure Precautions [facility] Protocol SW/CM for d/c planning Additional ordes as above Code status: 1 - General Info Date of Service: 04/14/18 - Patient Data Vitals - Most Recent: Last Vital Signs Temp 37.6 C 04/15/18 08:00 Pulse 75 04/15/18 08:11 Resp 16 04/15/18 08:00 BP 135/88 04/15/18 08:00 Pulse Ox 98 04/15/18 08:11 Weight - Most Recent: 72.575 kg I&O - Last 24 hours: Intake & Output 04/14/18 04/15/18 04/15/18 22:59 06:59 14:59 Intake Total 2170 552 Output Total 2700 600 Balance -530 -48 Lab Results - Last 24 hrs: Laboratory Results - last 24 hr 04/14/18 04/14/18 04/15/18 Range/Units 21:50 21:50 01:00 WBC 4.61 (4.23-9.07) K/mm3 RBC 3.53 L (4.63-6.08) M/mm3 Hgb 11.9 L (13.7-17.5) gm/L Hct 33.8 L (40.1-51.0) % MCV 95.8 H (79.0-92.2) fl MCH 33.7 H (25.7-32.2) pg MCHC 35.2 (32.2-35.5) g/dl RDW Std Deviation 42.2 (35.1-43.9) fL Plt Count 237 (163-337) K/mm3 MPV 9.1 L (9.4-12.3) fl Neut % (Auto) 68.3 H (34.0-67.9) % Lymph % (Auto) 15.0 L (21.8-53.1) % Hunt % (Auto) 15.2 H (5.3-12.2) % Eos % (Auto) 0.4 L (0.8-7.0) Baso % (Auto) 0.9 (0.1-1.2) % Neut # (Auto) 3.15 (1.78-5.38) K/mm3 Lymph # (Auto) 0.69 L (1.32-3.57) K/mm3 Hunt # (Auto) 0.70 (0.30-0.82) K/mm3 Eos # (Auto) 0.02 L (0.04-0.54) K/mm3 Baso # (Auto) 0.04 (0.01-0.08) K/mm3 Manual Slide Review Normal smear Sodium 138 (136-145) mEq/L Potassium 3.3 L (3.5-5.1) mEq/L Chloride 97 L (98-107) mEq/L Carbon Dioxide 26 (21-32) mEq/L Anion Gap 18.3 H (5-15) BUN 7 (7-18) mg/dL Creatinine 0.8 (0.7-1.3) mg/dL Est Cr Clr Drug Dosing 147.42 mL/min Estimated GFR (MDRD) > 60 (>60) mL/min BUN/Creatinine Ratio 8.8 L (14-18) Glucose 99 (74-106) mg/dL Calcium 9.1 (8.5-10.1) mg/dL Phosphorus 3.0 (2.6-4.7) mg/dL Magnesium 0.8 L (1.8-2.4) mg/dl Total Bilirubin 1.1 H (0.2-1.0) mg/dL AST 238 H (15-37) U/L ALT 174 H (16-63) U/L Alkaline Phosphatase 93 (46-116) U/L Total Protein 7.4 (6.4-8.2) g/dl Albumin 4.1 (3.4-5.0) g/dl Globulin 3.3 gm/dL Albumin/Globulin Ratio 1.2 (1-2) Urine Color Dark yellow (Yellow) Urine Appearance Clear (Clear) Urine pH 7.0 (5.0-8.0) Ur Specific Harrold > or = 1.030 (1.005-1.030) Urine Protein 2+ H (Negative) Urine Glucose (UA) Negative (Negative) Urine Ketones Trace H (Negative) Urine Occult Blood Trace-intact H (Negative) Urine Nitrite Negative (Negative) Urine Bilirubin Negative (Negative) Urine Urobilinogen 2.0 H (0.2-1.0) Ur Leukocyte Esterase Negative (Negative) Urine RBC 0-5 (0-5) /hpf Urine WBC 0-5 (0-5) /hpf Ur Epithelial Cells 0-5 (0-5) /hpf Amorphous Sediment Moderate H (NOT SEEN) /hpf Urine Bacteria Rare (FEW) /hpf Hyaline Casts 0-5 (0-5) /lpf Urine Mucus Many H (FEW) /hpf Urine Opiates Screen (NEGATIVE) Ur Buprenorphine Scrn (NEGATIVE) Ur Oxycodone Screen (NEGATIVE) Urine Methadone Screen (NEGATIVE) Ur Propoxyphene Screen (NEGATIVE) Ur Barbiturates Screen (NEGATIVE) Ur Tricyclics Screen (NEGATIVE) Ur Phencyclidine Scrn (NEGATIVE) Ur Amphetamine Screen (NEGATIVE) U Methamphetamines Scrn (NEGATIVE) U Benzodiazepines Scrn (NEGATIVE) U Cocaine Metab Screen (NEGATIVE) U Marijuana (THC) Screen (NEGATIVE) Ethyl Alcohol 0.02 (0.00) gm% 04/15/18 04/15/18 04/15/18 Range/Units 01:00 05:30 05:30 WBC 5.07 (4.23-9.07) K/mm3 RBC 3.47 L (4.63-6.08) M/mm3 Hgb 11.7 L (13.7-17.5) gm/L Hct 33.7 L (40.1-51.0) % MCV 97.1 H (79.0-92.2) fl MCH 33.7 H (25.7-32.2) pg MCHC 34.7 (32.2-35.5) g/dl RDW Std Deviation 42.5 (35.1-43.9) fL Plt Count 218 (163-337) K/mm3 MPV 9.5 (9.4-12.3) fl Neut % (Auto) 61.3 (34.0-67.9) % Lymph % (Auto) 22.7 (21.8-53.1) % Hunt % (Auto) 14.4 H (5.3-12.2) % Eos % (Auto) 0.4 L (0.8-7.0) Baso % (Auto) 1.0 (0.1-1.2) % Neut # (Auto) 3.11 (1.78-5.38) K/mm3 Lymph # (Auto) 1.15 L (1.32-3.57) K/mm3 Hunt # (Auto) 0.73 (0.30-0.82) K/mm3 Eos # (Auto) 0.02 L (0.04-0.54) K/mm3 Baso # (Auto) 0.05 (0.01-0.08) K/mm3 Manual Slide Review Sodium 135 L (136-145) mEq/L Potassium 3.6 (3.5-5.1) mEq/L Chloride 98 (98-107) mEq/L Carbon Dioxide 25 (21-32) mEq/L Anion Gap 15.6 H (5-15) BUN 6 L (7-18) mg/dL Creatinine 0.7 (0.7-1.3) mg/dL Est Cr Clr Drug Dosing 168.48 mL/min Estimated GFR (MDRD) > 60 (>60) mL/min BUN/Creatinine Ratio 8.6 L (14-18) Glucose 84 (74-106) mg/dL Calcium 8.8 (8.5-10.1) mg/dL Phosphorus (2.6-4.7) mg/dL Magnesium 2.2 (1.8-2.4) mg/dl Total Bilirubin (0.2-1.0) mg/dL AST (15-37) U/L ALT (16-63) U/L Alkaline Phosphatase (46-116) U/L Total Protein (6.4-8.2) g/dl Albumin (3.4-5.0) g/dl Globulin gm/dL Albumin/Globulin Ratio (1-2) Urine Color (Yellow) Urine Appearance (Clear) Urine pH (5.0-8.0) Ur Specific Harrold (1.005-1.030) Urine Protein (Negative) Urine Glucose (UA) (Negative) Urine Ketones (Negative) Urine Occult Blood (Negative) Urine Nitrite (Negative) Urine Bilirubin (Negative) Urine Urobilinogen (0.2-1.0) Ur Leukocyte Esterase (Negative) Urine RBC (0-5) /hpf Urine WBC (0-5) /hpf Ur Epithelial Cells (0-5) /hpf Amorphous Sediment (NOT SEEN) /hpf Urine Bacteria (FEW) /hpf Hyaline Casts (0-5) /lpf Urine Mucus (FEW) /hpf Urine Opiates Screen Negative (NEGATIVE) Ur Buprenorphine Scrn Negative (NEGATIVE) Ur Oxycodone Screen Negative (NEGATIVE) Urine Methadone Screen Negative (NEGATIVE) Ur Propoxyphene Screen Negative (NEGATIVE) Ur Barbiturates Screen Negative (NEGATIVE) Ur Tricyclics Screen Negative (NEGATIVE) Ur Phencyclidine Scrn Negative (NEGATIVE) Ur Amphetamine Screen Negative (NEGATIVE) U Methamphetamines Scrn Negative (NEGATIVE) U Benzodiazepines Scrn Negative (NEGATIVE) U Cocaine Metab Screen Negative (NEGATIVE) U Marijuana (THC) Screen Presumptive positive H (NEGATIVE) Ethyl Alcohol (0.00) gm% Med Orders - Current: Current Medications Albuterol/Ipratropium (Duoneb 3.0-0.5 Mg/3 Ml) 3 ml NEB Q4H PRN PRN Reason: Shortness Of Breath/wheezing Bisacodyl (Dulcolax) 5 mg PO DAILY PRN PRN Reason: Constipation Chlordiazepoxide HCl (Librium) 0 mg PO ASDIRECTED [facility]; Protocol Chlordiazepoxide HCl (Librium) 25 mg PO Q8H PRN PRN Reason: Withdrawal Symptoms Clonidine HCl (Catapres) 0.1 mg PO Q4H PRN PRN Reason: Agitation Last Admin: 04/15/18 02:25 Dose: 0.1 mg Docusate Sodium (Colace) 100 mg PO BID PRN PRN Reason: Constipation Famotidine (Pepcid) 20 mg PO Q12H [facility] Last Admin: 04/15/18 08:21 Dose: 20 mg Folic Acid (Folic Acid) 1 mg PO DAILY [facility] Stop: 04/17/18 09:01 Last Admin: 04/15/18 08:23 Dose: 1 mg Haloperidol Lactate (Haldol) 2 mg IM Q4H PRN PRN Reason: Agitation Hydralazine HCl (Apresoline) 20 mg IVPUSH Q4H PRN PRN Reason: Hypertension Hydromorphone HCl (Dilaudid) 0.25 mg IVPUSH Q2H PRN PRN Reason: Pain (severe 7-10) Promethazine HCl 12.5 mg/ (Sodium Chloride) 50.5 mls @ 100 mls/hr IV Q6H PRN PRN Reason: Nausea/Vomiting Sodium Chloride (Normal Saline) 1,000 mls @ 125 mls/hr IV ASDIRECTED [facility] Last Admin: 04/15/18 02:49 Dose: 125 mls/hr Ibuprofen (Motrin) 600 mg PO Q6H PRN PRN Reason: Pain (moderate 4-6) Lamotrigine (Lamotrigine) 150 mg PO BID [facility] Last Admin: 04/15/18 08:21 Dose: 150 mg Levetiracetam (Keppra) 1,000 mg PO BID [facility] Last Admin: 04/15/18 08:22 Dose: 1,000 mg Lorazepam (Ativan) 1 mg IV Q6H PRN PRN Reason: Anxiety Last Admin: 04/15/18 02:24 Dose: 1 mg Lorazepam (Ativan) 2 mg IVPUSH Q4H PRN PRN Reason: Seizures Magnesium Sulfate (Pharmacy To Dose - Magnesium Replacement) 1 dose .XX ASDIRECTED [facility] Metoprolol Tartrate (Lopressor) 5 mg IVPUSH Q4H PRN PRN Reason: Tachycardia Last Admin: 04/15/18 02:25 Dose: 5 mg Miscellaneous Information (Remove Patch) 1 ea TRDERM ONETIME [facility] Miscellaneous Information (Remove Patch) 1 ea TRDERM DAILY PRN PRN Reason: 24HR AFTER PATCH PLACED Multivitamins (Thera) 1 each PO DAILY [facility] Last Admin: 04/15/18 08:22 Dose: 1 each Nicotine (Habitrol) 21 mg TRDERM DAILY PRN PRN Reason: Tobacco Use Disorder Last Admin: 04/15/18 00:26 Dose: 21 mg Ondansetron HCl (Zofran) 4 mg IV Q6H PRN PRN Reason: Nausea/Vomiting Oxycodone HCl (Oxycodone) 5 mg PO Q4H PRN PRN Reason: Pain (moderate 4-6) Pantoprazole Sodium (Protonix Iv) 40 mg IV DAILY ONE Stop: 04/15/18 23:39 Polyethylene Glycol (Miralax) 17 gm PO DAILY PRN PRN Reason: Constipation Potassium Chloride (Pharmacy To Dose - Potassium Replacement) 1 dose .XX ASDIRECTED [facility] Senna/Docusate Sodium (Senna Plus) 1 tab PO BID PRN PRN Reason: Constipation Sodium Chloride (Saline Flush) 10 ml FLUSH ASDIRECTED PRN PRN Reason: Keep Vein Open Last Admin: 04/14/18 21:56 Dose: 10 ml Thiamine HCl (Vitamin B-1) 100 mg PO DAILY [facility] Last Admin: 04/15/18 08:21 Dose: 100 mg Discontinued Medications Chlordiazepoxide HCl (Librium) 50 mg PO ONETIME ONE Stop: 04/15/18 00:00 Last Admin: 04/15/18 00:24 Dose: 50 mg Folic Acid (Folic Acid) 1 mg PO ONETIME ONE Stop: 04/14/18 21:40 Last Admin: 04/15/18 00:21 Dose: Not Given Sodium Chloride (Normal Saline) 1,000 mls @ 999 mls/hr IV ONETIME ONE Stop: 04/14/18 22:33 Last Infusion: 04/15/18 00:20 Dose: Infused Thiamine HCl 100 mg/ Sodium (Chloride) 101 mls @ 202 mls/hr IV ONETIME ONE Stop: 04/14/18 21:40 Last Admin: 04/14/18 22:28 Dose: 202 mls/hr Levetiracetam 1,000 mg/ Sodium (Chloride) 110 mls @ 400 mls/hr IV ONETIME ONE Stop: 04/14/18 22:09 Last Admin: 04/14/18 22:06 Dose: 400 mls/hr Magnesium Sulfate 2 gm/ Premix 50 mls @ 50 mls/hr IV ONETIME ONE Stop: 04/14/18 23:26 Magnesium Sulfate 2 gm/ Premix 50 mls @ 50 mls/hr IV ONETIME ONE Stop: 04/14/18 23:30 Last Admin: 04/14/18 22:43 Dose: 50 mls/hr Magnesium Sulfate 2 gm/ Premix 50 mls @ 50 mls/hr IV ONETIME ONE Stop: 04/14/18 23:45 Last Admin: 04/14/18 23:41 Dose: 50 mls/hr Magnesium Sulfate 2 gm/ Premix 50 mls @ 50 mls/hr IV ONETIME ONE Stop: 04/14/18 23:45 Last Admin: 04/14/18 23:16 Dose: 50 mls/hr Potassium Chloride 10 meq/ (Premix) 100 mls @ 100 mls/hr IV Q1H [facility] Stop: 04/15/18 07:59 Last Admin: 04/15/18 08:08 Dose: 100 mls/hr Lorazepam (Ativan) 2 mg IVPUSH ONETIME ONE Stop: 04/14/18 21:35 Last Admin: 04/14/18 21:57 Dose: 2 mg Lorazepam (Ativan) Confirm Administered Dose 2 mg .ROUTE .STK-MED ONE Stop: 04/14/18 21:51 Last Admin: 04/14/18 21:57 Dose: Not Given Lorazepam (Ativan) 2 mg IVPUSH ONETIME ONE Stop: 04/14/18 22:52 Last Admin: 04/14/18 22:57 Dose: 2 mg Lorazepam (Ativan) Confirm Administered Dose 2 mg .ROUTE .STK-MED ONE Stop: 04/14/18 22:54 Last Admin: 04/14/18 23:10 Dose: Not Given Magnesium Sulfate (Pharmacy To Dose - Magnesium Replacement) 1 dose .XX ASDIRECTED [facility] Ondansetron HCl (Zofran) 4 mg IVPUSH ONETIME ONE Stop: 04/14/18 22:50 Last Admin: 04/14/18 22:56 Dose: 4 mg Potassium Chloride (Klor-Con M20) 40 meq PO Q4H [facility] Last Admin: 04/15/18 00:25 Dose: 40 meq Quetiapine Fumarate (Seroquel) 50 mg PO ONETIME ONE Stop: 04/14/18 23:54 Last Admin: 04/15/18 00:23 Dose: 50 mg Scopolamine (Transderm-Scop) 1.5 mg TRDERM Q72H ONE Stop: 04/15/18 00:01 Last Admin: 04/15/18 00:23 Dose: 1.5 mg
[2018-04-15] MEDS ORDERED: Pantoprazole 40 MG Vial IV ONE (23:38)
== END 2018-04-15 09:51 | disposition left against medical advice (07) | DRG 894 ==
LOC: JD.ED 20:47 → JD.ICU 23:29
PROVIDERS: ADMIT Internal Medicine; ATTEND Internal Medicine
DX: F10.239 Alcohol dependence with withdrawal, unspecified (principal); R56.9 Unspecified convulsions; Z91.19 Patient's noncompliance with other medical treatment and regimen; E83.42 Hypomagnesemia; E87.6 Hypokalemia; R74.0 Nonspecific elevation of levels of transaminase and lactic acid dehydrogenase [LDH]; F15.10 Other stimulant abuse, uncomplicated; F12.10 Cannabis abuse, uncomplicated; F17.200 Nicotine dependence, unspecified, uncomplicated; Z79.899 Other long term (current) drug therapy
CPT/HCPCS: 36415; 80048; 80053; 80175; 80177; 80306; 81001; 83735; 84100; 85025; 87086; 93005; 93010; 96365; 96366; 96367; 96375; 96376; 99223; 99238; 99284; 99285-25; A9270-GY; G0480; J1953; J2060; J2405; J3411; J3475; J3480; J3490; J7030; J7040; J7050

== ENCOUNTER 2018-07-31 10:10 | Emergency (ER) | payer OTHER ==
[2018-07-31 10:26] VITALS: BP 226/183
[2018-07-31] MEDS ORDERED: Sodium Chloride 0.9% 10 ML Syringe FLUSH PRN (10:33)
--- NOTE | 2018-07-31 10:44 | EDM.PDOC ---
ED HPI GENERAL MEDICAL PROBLEM - General Chief Complaint: Neurological Problem Stated Complaint: SEIZURE Time Seen by Provider: 07/31/18 10:32 Source of Information: Reports: Patient, Other (friend) - History of Present Illness INITIAL COMMENTS - FREE TEXT/NARRATIVE: Seizure 9:55am about 30 seconds where he was drooling and slumped before. Hx seizures 2-3 years, no official diagnosis or previous EEG. Sees Dr Whitaker/neurology in [place]. He reports that he is currently on 3 daily medications for his seizure disorder. He is unsure what these are. He states that 3 seizures in the last year, the last one was "a long time ago". There is a friend in the room who witnessed the seizure, the friend states that the patient was not shaking during the seizure, but he was drooling. The friend noticed that Andrew was having a seizure, and helped him slump over so that he did not choke, as they were in an automobile. The friend states that this has happened before, and this is a mild seizure. Patient's friend reports that all of his seizures that he is witnessed previously, which is quite a few, were much worse than today's. The patient was not witnessed to have hit his head or any other trauma during the LOC/seizure episode. Patient had no loss of bowel or bladder function. Patient's friend reports that patient was very alert after this "seizure" stopped which is different than his previous as well. .75ppd cigarette smoker, drinks beer/liquor 3-4 times per week. Denies illicit drug use. Patient reports that he has not had alcohol in 2 days. He reports that he has had nothing to eat or drink today, ate supper at [employer] last night around 9 PM. Onset: Today Onset Date: 07/31/18 Onset Time: 09:55 Duration: Minutes: (0.5) Context: Reports: Other (hx/o seizure (2-3years)). Denies: Sick Contact Associated Symptoms: Reports: Seizure, Syncope (LOC while the patient was having seizure.). Denies: Confusion, Chest Pain, Fever/Chills, Nausea/Vomiting , Shortness of Breath - Related Data Allergies Allergy/AdvReac Type Severity Reaction Status Date / Time seasonal Allergy Other Uncoded 04/15/18 01:41 Home Meds: Home Meds lamoTRIgine [Lamotrigine] 150 mg PO BID 09/01/17 [History] Lactulose 1 dose PO BID 07/31/18 [History] Thiamine Mononitrate [Vitamin B-1] 100 mg PO QPM 07/31/18 [History] levETIRAcetam [Keppra] 1,000 mg PO BID 07/31/18 [History] levOCARNitine Tartrate [L-Carnitine] 1,000 mg PO BID 07/31/18 [History] Past Medical History HEENT History: Reports: Other (See Below) Other HEENT History: missing tooth. Gastrointestinal History: Reports: Gastritis, GERD Genitourinary History: Reports: Renal Disease Musculoskeletal History: Reports: Fracture Other Musculoskeletal History: broke both arms, ankle Neurological History: Reports: Seizure (hx/o although, he cannot recall a specific diagnosis or EEG) Psychiatric History: Reports: Addiction, Anxiety - Past Surgical History Musculoskeletal Surgical History: Reports: ORIF Social & Family History - Family History Family Medical History: Noncontributory Respiratory: Reports: COPD - Tobacco Use Smoking Status *Q: Current Every Day Smoker Packs/Tins Daily: 0.7 - Caffeine Use Caffeine Use: Reports: Soda Other Caffeine Use: 1 can/day - Living Situation & Occupation Living situation: Reports: Single, Other (with friends) Occupation: Unemployed ED ROS GENERAL - Review of Systems Review Of Systems: See Below Constitutional: Reports: Malaise, Weakness. Denies: Fever, Chills HEENT: Reports: No Symptoms Respiratory: Reports: No Symptoms Cardiovascular: Reports: No Symptoms GI/Abdominal: Reports: No Symptoms Musculoskeletal: Reports: No Symptoms Skin: Reports: No Symptoms Neurological: Reports: Seizure, Tremors. Denies: Confusion, Dizziness, Headache , Numbness, Trouble Speaking, Difficulty Walking Psychiatric: Reports: Anxiety Hematologic/Lymphatic: Reports: No Symptoms - Physical Exam Exam: See Below Exam Limited By: No Limitations General Appearance: Alert, WD/WN, Anxious Eye Exam: Bilateral Eye: PERRL Ears: Normal External Exam, Normal Canal, Normal TMs Nose: Normal Inspection Throat/Mouth: Normal Inspection, Normal Oropharynx Head Exam: Atraumatic, Normocephalic Neck: Normal Inspection, Supple, Non-Tender Respiratory/Chest: No Respiratory Distress, Lungs Clear, Normal Breath Sounds, No Accessory Muscle Use Cardiovascular: Normal Peripheral Pulses, Regular Rate, Rhythm, No Murmur GI/Abdominal: Normal Bowel Sounds, Soft, Non-Tender Neuro Exam (Abbreviated): Alert, Oriented, CN II-XII Intact, Normal Reflexes, No Motor/Sensory Deficits, Other (B/L hand tremor, Strength equal B/L to upper/ lower extremities. No pronator drift. ) Extremities: Normal Inspection, Normal Range of Motion Psychiatric: Normal Affect, Anxious Skin Exam: Warm, Dry, Intact EKG INTERPRETATION EKG Date: 07/31/18 Time: 11:55 Rhythm: NSR Rate (Beats/Min): 87 EKG Interpretation Comments: Reviewed with Dr Joshua Staples. Course - Vital Signs Last Recorded V/S: Last Vital Signs Temp 98.2 F 07/31/18 10:21 Pulse 124 H 07/31/18 10:21 Resp 16 07/31/18 10:21 BP 226/183 H 07/31/18 10:21 Pulse Ox 100 07/31/18 10:21 - Orders/Labs/Meds Orders: Active Orders 24 hr Category Date Time Status EKG 12 Lead [EKG Documentation Completion] [RC] STAT Care 07/31/18 10:46 Active Peripheral IV Care [RC] . DIRECTED Care 07/31/18 10:33 Active LAMOTRIGINE, SERUM [REF] Routine Lab 07/31/18 10:40 Received LEVETIRACETAM, S [REF] Routine Lab 07/31/18 10:40 Received LORazepam [Ativan] Med 07/31/18 12:28 Active 1 mg IVPUSH ASDIRECTED PRN Sodium Chloride 0.9% [Normal Saline] 1,000 ml Med 07/31/18 10:45 Active IV ONETIME Sodium Chloride 0.9% [Saline Flush] Med 07/31/18 10:33 Active 10 ml FLUSH ASDIRECTED PRN Peripheral IV Insertion Adult [OM.PC] Stat Oth 07/31/18 10:33 Ordered Medication Orders Sodium Chloride (Normal Saline) 1,000 mls @ 999 mls/hr IV [facility] Last Admin: 07/31/18 11:10 Dose: 999 mls/hr Lorazepam (Ativan) 1 mg IVPUSH ASDIRECTED PRN; Protocol PRN Reason: Other Last Admin: 07/31/18 13:46 Dose: 1 mg Admin: 07/31/18 12:38 Dose: 1 mg Sodium Chloride (Saline Flush) 10 ml FLUSH ASDIRECTED PRN PRN Reason: Keep Vein Open Last Admin: 07/31/18 11:10 Dose: 10 ml Labs: Laboratory Tests 07/31/18 07/31/18 07/31/18 Range/Units 10:40 10:40 10:40 WBC 4.71 (4.23-9.07) K/mm3 RBC 4.28 L (4.63-6.08) M/mm3 Hgb 14.8 (13.7-17.5) gm/L Hct 42.0 (40.1-51.0) % MCV 98.1 H (79.0-92.2) fl MCH 34.6 H (25.7-32.2) pg MCHC 35.2 (32.2-35.5) g/dl RDW Std Deviation 43.0 (35.1-43.9) fL Plt Count 211 (163-337) K/mm3 MPV 9.0 L (9.4-12.3) fl Neut % (Auto) 51.8 (34.0-67.9) % Lymph % (Auto) 32.5 (21.8-53.1) % [place] % (Auto) 13.8 H (5.3-12.2) % Eos % (Auto) 0.4 L (0.8-7.0) Baso % (Auto) 1.3 H (0.1-1.2) % Neut # (Auto) 2.44 (1.78-5.38) K/mm3 Lymph # (Auto) 1.53 (1.32-3.57) K/mm3 [place] # (Auto) 0.65 (0.30-0.82) K/mm3 Eos # (Auto) 0.02 L (0.04-0.54) K/mm3 Baso # (Auto) 0.06 (0.01-0.08) K/mm3 Sodium 136 (136-145) mEq/L Potassium 3.4 L (3.5-5.1) mEq/L Chloride 95 L (98-107) mEq/L Carbon Dioxide 19 L (21-32) mEq/L Anion Gap 25.4 H (5-15) BUN 5 L (7-18) mg/dL Creatinine 0.9 (0.7-1.3) mg/dL Est Cr Clr Drug Dosing 143.32 mL/min Estimated GFR (MDRD) > 60 (>60) mL/min BUN/Creatinine Ratio 5.6 L (14-18) Glucose 127 H (74-106) mg/dL Calcium 9.3 (8.5-10.1) mg/dL Magnesium (1.8-2.4) mg/dl Total Bilirubin 1.0 (0.2-1.0) mg/dL GGT (15-85) U/L AST 246 H (15-37) U/L ALT 110 H (16-63) U/L Alkaline Phosphatase 127 H (46-116) U/L C-Reactive Protein < 0.2 (<1.0) mg/dL Total Protein 8.6 H (6.4-8.2) g/dl Albumin 4.3 (3.4-5.0) g/dl Globulin 4.3 gm/dL Albumin/Globulin Ratio 1.0 (1-2) TSH 3rd Generation 2.565 (0.358-3.74) uIU/mL Urine Color (Yellow) Urine Appearance (Clear) Urine pH (5.0-8.0) Ur Specific [place] (1.005-1.030) Urine Protein (Negative) Urine Glucose (UA) (Negative) Urine Ketones (Negative) Urine Occult Blood (Negative) Urine Nitrite (Negative) Urine Bilirubin (Negative) Urine Urobilinogen (0.2-1.0) Ur Leukocyte Esterase (Negative) Urine RBC (0-5) /hpf Urine WBC (0-5) /hpf Ur Epithelial Cells (0-5) /hpf Urine Bacteria (FEW) /hpf Hyaline Casts (0-5) /lpf Urine Mucus (FEW) /hpf Urine Opiates Screen (NEGATIVE) Ur Buprenorphine Scrn (NEGATIVE) Ur Oxycodone Screen (NEGATIVE) Urine Methadone Screen (NEGATIVE) Ur Propoxyphene Screen (NEGATIVE) Ur Barbiturates Screen (NEGATIVE) Ur Tricyclics Screen (NEGATIVE) Ur Phencyclidine Scrn (NEGATIVE) Ur Amphetamine Screen (NEGATIVE) U Methamphetamines Scrn (NEGATIVE) U Benzodiazepines Scrn (NEGATIVE) U Cocaine Metab Screen (NEGATIVE) U Marijuana (THC) Screen (NEGATIVE) Ethyl Alcohol 0.10 (0.00) gm% 07/31/18 07/31/18 07/31/18 Range/Units 10:40 10:40 12:11 WBC (4.23-9.07) K/mm3 RBC (4.63-6.08) M/mm3 Hgb (13.7-17.5) gm/L Hct (40.1-51.0) % MCV (79.0-92.2) fl MCH (25.7-32.2) pg MCHC (32.2-35.5) g/dl RDW Std Deviation (35.1-43.9) fL Plt Count (163-337) K/mm3 MPV (9.4-12.3) fl Neut % (Auto) (34.0-67.9) % Lymph % (Auto) (21.8-53.1) % [place] % (Auto) (5.3-12.2) % Eos % (Auto) (0.8-7.0) Baso % (Auto) (0.1-1.2) % Neut # (Auto) (1.78-5.38) K/mm3 Lymph # (Auto) (1.32-3.57) K/mm3 [place] # (Auto) (0.30-0.82) K/mm3 Eos # (Auto) (0.04-0.54) K/mm3 Baso # (Auto) (0.01-0.08) K/mm3 Sodium (136-145) mEq/L Potassium (3.5-5.1) mEq/L Chloride (98-107) mEq/L Carbon Dioxide (21-32) mEq/L Anion Gap (5-15) BUN (7-18) mg/dL Creatinine (0.7-1.3) mg/dL Est Cr Clr Drug Dosing mL/min Estimated GFR (MDRD) (>60) mL/min BUN/Creatinine Ratio (14-18) Glucose (74-106) mg/dL Calcium (8.5-10.1) mg/dL Magnesium 1.6 L (1.8-2.4) mg/dl Total Bilirubin (0.2-1.0) mg/dL GGT 1611 H (15-85) U/L AST (15-37) U/L ALT (16-63) U/L Alkaline Phosphatase (46-116) U/L C-Reactive Protein (<1.0) mg/dL Total Protein (6.4-8.2) g/dl Albumin (3.4-5.0) g/dl Globulin gm/dL Albumin/Globulin Ratio (1-2) TSH 3rd Generation (0.358-3.74) uIU/mL Urine Color Dark yellow (Yellow) Urine Appearance Clear (Clear) Urine pH 6.5 (5.0-8.0) Ur Specific [place] > or = 1.030 (1.005-1.030) Urine Protein 2+ H (Negative) Urine Glucose (UA) Negative (Negative) Urine Ketones Trace H (Negative) Urine Occult Blood Negative (Negative) Urine Nitrite Negative (Negative) Urine Bilirubin Negative (Negative) Urine Urobilinogen 1.0 (0.2-1.0) Ur Leukocyte Esterase Negative (Negative) Urine RBC 0-5 (0-5) /hpf Urine WBC 0-5 (0-5) /hpf Ur Epithelial Cells 0-5 (0-5) /hpf Urine Bacteria Rare (FEW) /hpf Hyaline Casts 5-10 H (0-5) /lpf Urine Mucus Moderate H (FEW) /hpf Urine Opiates Screen (NEGATIVE) Ur Buprenorphine Scrn (NEGATIVE) Ur Oxycodone Screen (NEGATIVE) Urine Methadone Screen (NEGATIVE) Ur Propoxyphene Screen (NEGATIVE) Ur Barbiturates Screen (NEGATIVE) Ur Tricyclics Screen (NEGATIVE) Ur Phencyclidine Scrn (NEGATIVE) Ur Amphetamine Screen (NEGATIVE) U Methamphetamines Scrn (NEGATIVE) U Benzodiazepines Scrn (NEGATIVE) U Cocaine Metab Screen (NEGATIVE) U Marijuana (THC) Screen (NEGATIVE) Ethyl Alcohol (0.00) gm% 07/31/18 Range/Units 12:11 WBC (4.23-9.07) K/mm3 RBC (4.63-6.08) M/mm3 Hgb (13.7-17.5) gm/L Hct (40.1-51.0) % MCV (79.0-92.2) fl MCH (25.7-32.2) pg MCHC (32.2-35.5) g/dl RDW Std Deviation (35.1-43.9) fL Plt Count (163-337) K/mm3 MPV (9.4-12.3) fl Neut % (Auto) (34.0-67.9) % Lymph % (Auto) (21.8-53.1) % [place] % (Auto) (5.3-12.2) % Eos % (Auto) (0.8-7.0) Baso % (Auto) (0.1-1.2) % Neut # (Auto) (1.78-5.38) K/mm3 Lymph # (Auto) (1.32-3.57) K/mm3 [place] # (Auto) (0.30-0.82) K/mm3 Eos # (Auto) (0.04-0.54) K/mm3 Baso # (Auto) (0.01-0.08) K/mm3 Sodium (136-145) mEq/L Potassium (3.5-5.1) mEq/L Chloride (98-107) mEq/L Carbon Dioxide (21-32) mEq/L Anion Gap (5-15) BUN (7-18) mg/dL Creatinine (0.7-1.3) mg/dL Est Cr Clr Drug Dosing mL/min Estimated GFR (MDRD) (>60) mL/min BUN/Creatinine Ratio (14-18) Glucose (74-106) mg/dL Calcium (8.5-10.1) mg/dL Magnesium (1.8-2.4) mg/dl Total Bilirubin (0.2-1.0) mg/dL GGT (15-85) U/L AST (15-37) U/L ALT (16-63) U/L Alkaline Phosphatase (46-116) U/L C-Reactive Protein (<1.0) mg/dL Total Protein (6.4-8.2) g/dl Albumin (3.4-5.0) g/dl Globulin gm/dL Albumin/Globulin Ratio (1-2) TSH 3rd Generation (0.358-3.74) uIU/mL Urine Color (Yellow) Urine Appearance (Clear) Urine pH (5.0-8.0) Ur Specific [place] (1.005-1.030) Urine Protein (Negative) Urine Glucose (UA) (Negative) Urine Ketones (Negative) Urine Occult Blood (Negative) Urine Nitrite (Negative) Urine Bilirubin (Negative) Urine Urobilinogen (0.2-1.0) Ur Leukocyte Esterase (Negative) Urine RBC (0-5) /hpf Urine WBC (0-5) /hpf Ur Epithelial Cells (0-5) /hpf Urine Bacteria (FEW) /hpf Hyaline Casts (0-5) /lpf Urine Mucus (FEW) /hpf Urine Opiates Screen Negative (NEGATIVE) Ur Buprenorphine Scrn Negative (NEGATIVE) Ur Oxycodone Screen Negative (NEGATIVE) Urine Methadone Screen Negative (NEGATIVE) Ur Propoxyphene Screen Negative (NEGATIVE) Ur Barbiturates Screen Negative (NEGATIVE) Ur Tricyclics Screen Negative (NEGATIVE) Ur Phencyclidine Scrn Negative (NEGATIVE) Ur Amphetamine Screen Negative (NEGATIVE) U Methamphetamines Scrn Negative (NEGATIVE) U Benzodiazepines Scrn Negative (NEGATIVE) U Cocaine Metab Screen Negative (NEGATIVE) U Marijuana (THC) Screen Presumptive positive H (NEGATIVE) Ethyl Alcohol (0.00) gm% Meds: Medications Generic Name Dose Route Start Last Admin Trade Name Freq PRN Reason Stop Dose Admin Sodium Chloride 1,000 mls @ 999 mls/hr 07/31/18 10:45 07/31/18 11:10 Normal Saline IV 999 mls/hr ONETIME NATHANAEL Administration Lorazepam 1 mg 07/31/18 12:28 07/31/18 13:46 Ativan IVPUSH 1 mg ASDIRECTED PRN Administration Other Protocol Sodium Chloride 10 ml 07/31/18 10:33 07/31/18 11:10 Saline Flush FLUSH 10 ml ASDIRECTED PRN Administration Keep Vein Open Discontinued Medications Generic Name Dose Route Start Last Admin Trade Name Freq PRN Reason Stop Dose Admin Lactated Ringer's 1,000 mls @ 9,999 mls/hr 07/31/18 13:36 07/31/18 13:44 Ringers, Lactated IV 07/31/18 13:41 9,999 mls/hr .BOLUS ONE Administration Magnesium Sulfate 2 gm/ Premix 50 mls @ 25 mls/hr 07/31/18 14:00 07/31/18 16: 22 IV 07/31/18 15:59 25 mls/hr Q1H NATHANAEL Administration Lorazepam 1 mg 07/31/18 10:57 07/31/18 11:11 Ativan PO 07/31/18 10:58 1 mg ONETIME ONE Administration Lorazepam 1 mg 07/31/18 13:55 Ativan PO 07/31/18 13:56 ONETIME ONE Lorazepam 1 mg 07/31/18 16:35 07/31/18 16:55 Ativan IVPUSH 07/31/18 16:36 1 mg ONETIME ONE Administration Ondansetron HCl 4 mg 07/31/18 12:52 07/31/18 13:15 Zofran IVPUSH 07/31/18 12:53 4 mg ONETIME ONE Administration - Re-Assessments/Exams Free Text/Narrative Re-Assessment/Exam: Patient is here for evaluation of what felt to be a seizure around 955 this morning. His friend witnessed this and stated it was less severe than his typical seizures. Patient has history of alcohol use, reports not drinking in the last 2 days. Blood pressure was initially elevated upon arrival, did come down to 140s over 90s. Patient did calm down after 1 mg lorazepam by mouth. 1220 patient had an episode of hypoxia where his oxygen dropped to 50%, he Became very tense and shaky. Patient was coherent and responsive throughout this episode. Dr. Staples to come in the room for this as well. Patient was placed on O2 4L per NC and sats came up to 100%, this will be decreased to 2L to maintain appropriate saturation. Lab work demonstrates WBC of 4710. Potassium mildly low at 3.4. Anion gap of 25.4 glucose is 127. Liver enzymes are high AST 246, AST 110 alkaline phosphatase is 127. GGT pending. EtOH is 0.10, patient states that he has not had a drink in the last 2 days. Drug screen is still pending. TSH 2.565. Patient is very tense and not forthcoming to discuss what is going on. He is alert and oriented. Will discuss possible admission with hospitalist. 07/31/18 12:21 Oxygen was turned down to 2 L, patient is maintaining at 99-100% on this. Will turn this off and monitor. Urine drug screen positive for marijuana. Patient now nauseated, Zofran 4 mg IV will be given. 07/31/18 12:53 Upon discussion with the hospitalist patient is adamant that he does not want to be admitted. His magnesium was low at 1.6, he is agreeable to hydration and magnesium supplementation here in the emergency room. A very lengthy discussion was had about patient's drinking. He feels that he can do this on his own. Has been in treatment previously for marijuana but not for his alcohol Offered to refer patient or discuss possible inpatient admission for his drinking the patient is not interested in this at this time. He is again requesting to leave, I did advise patient that it is in his right to do so but I recommend he stay was alcohol drops so we can monitor for any further seizure activity. Also to replace his magnesium. He is willing to stay for "awhile". 07/31/18 13:[address] head demonstrates nothing acute. Oxygen now turned off and sats maintaining >98%. 07/31/18 14:50 Patient's ate a sandwich, states that it tasted very good. He vomited shortly thereafter. He denied any nausea. Again discussed with patient the need for inpatient monitoring during his withdrawal, patient again refused admission. States he will stay here "until the IVs are in". 07/31/18 17:20 Patient has received 2 g of magnesium, 1 L of normal saline 1 L of LR. He is requesting to leave. I did again discuss with the patient the risk withdrawal and that it would be much safer to do here in the hospital well under supervision also so he can be medicated if he has more withdrawal seizures. Patient is fully aware of the risk of this. Discussed with patient that he has received a very large amount of lorazepam today, he cannot have a single drop of alcohol after having this. There is risk of over sedation, cardiac arrhythmia or even . Discussed the risks of this at length again with the patient and he verbalized understanding. patient is choosing to leave against medical advice. 07/31/18 18:32 Departure - Departure Time of Disposition: 18:34 Disposition: Home, Self-Care 01 Condition: Fair Clinical Impression: Seizure, Abnormal LFTs, Alcohol abuse Alcohol withdrawal Qualifiers: Complication of substance-induced condition: with unspecified complication Qualified Code(s): F10.239 - Alcohol dependence with withdrawal, unspecified - Discharge Information Referrals: PCP,None [Primary Care Provider] - Forms: ED Department Discharge Additional Instructions: You are choosing to leave against medical advice. You can NOT drink alcohol after the medication (Ativan) that you had here in the ED. There will be risk of over-sedation, seizure, heart problems or even . I recommend that you stop drinking alcohol. you can discuss this with your PCP or return to ED for assistance when you are ready to quit. Follow-up with your neurologist within the next week. - My Orders Last 24 Hours: My Active Orders 07/31/18 10:40 LAMOTRIGINE, SERUM [REF] Routine LEVETIRACETAM, S [REF] Routine 07/31/18 10:46 EKG 12 Lead [EKG Documentation Completion] [RC] STAT 07/31/18 12:28 LORazepam [Ativan] 1 mg IVPUSH ASDIRECTED PRN - Assessment/Plan Last 24 Hours: My Active Orders 07/31/18 10:40 LAMOTRIGINE, SERUM [REF] Routine LEVETIRACETAM, S [REF] Routine 07/31/18 10:46 EKG 12 Lead [EKG Documentation Completion] [RC] STAT 07/31/18 12:28 LORazepam [Ativan] 1 mg IVPUSH ASDIRECTED PRN
[2018-07-31] MEDS ORDERED: Sodium Chloride 0.9% 1,000 ML IV SCH (10:45)
[2018-07-31] MEDS ORDERED: LORazepam 1 MG Tab PO ONE ×2 (10:57→13:55)
[2018-07-31] MEDS: LORazepam 2 MG/ML SDV IVPUSH PRN ×2 (12:38→13:46)
[2018-07-31] MEDS ORDERED: Ondansetron 4 MG/2 ML SDV IVPUSH ONE (12:52)
[2018-07-31] MEDS ORDERED: Lactated Ringers 1,000 ML IV ONE (13:36)
--- NOTE | 2018-07-31 13:41 | CT ---
Head CT Technique: Multiple axial sections through the brain were obtained. Intravenous contrast was not utilized. Comparison: Prior head CT exam of 12/16/17. Findings: Ventricles along with basal cisterns and sulci over convexities are stable in appearance from previous head CT. No abnormal parenchymal densities are seen. No evidence of intracranial hemorrhage. No midline shift or mass effect is seen. Bone window settings were reviewed which shows no acute calvarial abnormality. Visualized sinuses are clear. Impression: 1. Nothing acute is seen on noncontrast head CT study. No significant change is seen from previous head CT exam. Diagnostic code #1
[2018-07-31] MEDS: Magnesium Sulfate/Water 2 GM in Premix Bag 1 BAG IV SCH ×2 (14:18→16:22)
[2018-07-31] MEDS ORDERED: LORazepam 2 MG/ML SDV IVPUSH ONE (16:35)
== END 2018-07-31 18:59 | disposition left against medical advice (07) ==
LOC: JD.ED 10:10
DX: R56.9 Unspecified convulsions (principal); F10.239 Alcohol dependence with withdrawal, unspecified; Y90.5 Blood alcohol level of 100-119 mg/100 ml; F17.210 Nicotine dependence, cigarettes, uncomplicated
CPT/HCPCS: 36415; 70450; 80053; 80175; 80177; 80306; 81001; 82977; 83735; 84443; 85025; 86140; 93005; 96361; 96365; 96366; 96375; 96376; 99285; G0480; J2060; J2405; J7040; J7050; J7120; 93010; A9270-GY; J3475

== ENCOUNTER 2020-05-15 14:45 | Emergency (ER) | payer MEDICAID, OTHER, SELFPAY ==
[2020-05-15 14:51] VITALS: BP 132/85; PULSE 84
[2020-05-15] MEDS ORDERED: LORazepam 2 MG/ML SDV IVPUSH ONE (14:52)
[2020-05-15] MEDS ORDERED: Sodium Chloride 0.9% 10 ML Syringe FLUSH PRN (14:52)
[2020-05-15] MEDS ORDERED: Sodium Chloride 0.9% 1,000 ML IV SCH (15:00)
--- NOTE | 2020-05-15 16:11 | EDM.PDOC ---
ED HPI GENERAL MEDICAL PROBLEM - General Chief Complaint: Neurological Problem Stated Complaint: [facility] Time Seen by Provider: 05/15/20 14:47 Source of Information: Reports: Patient, EMS History Limitations: Reports: No Limitations - History of Present Illness INITIAL COMMENTS - FREE TEXT/NARRATIVE: The patient presents by [facility] for a seizure. He has a history of seizures and he is on keppra and lamictal. He does admit to drinking yesterday. This happened at work and he was confused after. He is alert and orientated now. There has been no changes to his medications lately. He has no fever, chills, cough, congestion, runny nose, headache, chest pain, shortness of breath, abdominal pain, nausea or vomiting. Onset: Sudden Duration: Minutes: Severity: Moderate Improves with: Reports: None Worsens with: Reports: None Context: Reports: Activity (at work) Associated Symptoms: Reports: No Other Symptoms - Related Data Allergies Allergy/AdvReac Type Severity Reaction Status Date / Time seasonal Allergy Other Uncoded 05/15/20 14:51 Home Meds: Home Meds lamoTRIgine [Lamotrigine] 150 mg PO BID 09/01/17 [History] Lactulose 30 ml PO BID 07/31/18 [History] Thiamine Mononitrate (Vit B1) [Vitamin B-1] 100 mg PO BEDTIME 07/31/18 [History] levOCARNitine tartrate [L-Carnitine] 1,000 mg PO BID 07/31/18 [History] Folic Acid 1 mg PO DAILY 08/28/18 [History] QUEtiapine [SEROquel] 50 mg PO BEDTIME 08/28/18 [History] levETIRAcetam [Levetiracetam] 2 tab PO BID 08/28/18 [History] levETIRAcetam [Levetiracetam] 250 mg PO BID 08/28/18 [History] Past Medical History HEENT History: Reports: Other (See Below) Other HEENT History: missing tooth. Gastrointestinal History: Reports: Gastritis, GERD Genitourinary History: Reports: Renal Disease Musculoskeletal History: Reports: Fracture Other Musculoskeletal History: broke both arms, ankle Neurological History: Reports: Seizure Psychiatric History: Reports: Addiction, Anxiety - Past Surgical History Musculoskeletal Surgical History: Reports: ORIF Social & Family History - Family History Family Medical History: Noncontributory Respiratory: Reports: COPD - Tobacco Use Smoking Status *Q: Current Every Day Smoker Years of Tobacco use: 6 Packs/Tins Daily: 1 - Caffeine Use Caffeine Use: Reports: None Other Caffeine Use: 1 can/day - Recreational Drug Use Recreational Drug Use: Yes Drug Use in Last 12 Months: Yes Recreational Drug Type: Reports: Marijuana/Hashish Recreational Drug Use Frequency: Socially - Living Situation & Occupation Living situation: Reports: Single, Other (with friends) Occupation: Unemployed ED ROS GENERAL - Review of Systems Review Of Systems: See Below Constitutional: Reports: No Symptoms HEENT: Reports: No Symptoms Respiratory: Reports: No Symptoms Cardiovascular: Reports: No Symptoms Endocrine: Reports: No Symptoms GI/Abdominal: Reports: No Symptoms : Reports: No Symptoms - Physical Exam Exam: See Below Exam Limited By: No Limitations General Appearance: Alert, No Apparent Distress Ears: Normal External Exam Nose: Normal Inspection Head Exam: Atraumatic, Normocephalic Neck: Normal Inspection Respiratory/Chest: No Respiratory Distress, Lungs Clear, Normal Breath Sounds Cardiovascular: Regular Rate, Rhythm, No Edema, No Murmur GI/Abdominal: Soft, Non-Tender, No Organomegaly, No Mass Neuro Exam (Abbreviated): Alert, Oriented, No Motor/Sensory Deficits Course - Vital Signs Last Recorded V/S: Last Vital Signs Temp 99.2 F 05/15/20 14:48 Pulse 84 05/15/20 14:48 Resp 16 05/15/20 14:48 BP 132/85 05/15/20 14:48 Pulse Ox 95 05/15/20 14:48 - Orders/Labs/Meds Orders: Active Orders 24 hr Category Date Time Status Cardiac Monitoring [RC] . DIRECTED Care 05/15/20 14:52 Active Peripheral IV Care [RC] . DIRECTED Care 05/15/20 14:52 Active LAMOTRIGINE, SERUM [REF] Stat Lab 05/15/20 14:14 Received LEVETIRACETAM, S [REF] Stat Lab 05/15/20 14:14 Received Sodium Chloride 0.9% [Normal Saline] 1,000 ml Med 05/15/20 15:00 Active IV .BOLUS Sodium Chloride 0.9% [Saline Flush] Med 05/15/20 14:52 Active 10 ml FLUSH ASDIRECTED PRN Peripheral IV Insertion Adult [OM.PC] Stat Oth 05/15/20 14:52 Ordered Medication Orders Sodium Chloride (Normal Saline) 1,000 mls @ 1,000 mls/hr IV .BOLUS NATHANAEL Last Admin: 05/15/20 15:05 Dose: 1,000 mls/hr Documented by: DAGO Sodium Chloride (Saline Flush) 10 ml FLUSH ASDIRECTED PRN PRN Reason: Keep Vein Open Last Admin: 05/15/20 15:05 Dose: 10 ml Documented by: DAGO Labs: Laboratory Tests 05/15/20 05/15/20 Range/Units 14:14 14:14 WBC 9.44 H (4.23-9.07) K/mm3 RBC 3.63 L (4.63-6.08) M/mm3 Hgb 12.4 L D (13.7-17.5) gm/dl Hct 35.3 L (40.1-51.0) % MCV 97.2 H D (79.0-92.2) fl MCH 34.2 H (25.7-32.2) pg MCHC 35.1 (32.2-35.5) g/dl RDW Std Deviation 39.6 (35.1-43.9) fL Plt Count 133 L (163-337) K/mm3 MPV 9.9 (9.4-12.3) fl Neut % (Auto) 79.9 H (34.0-67.9) % Lymph % (Auto) 9.1 L (21.8-53.1) % [place] % (Auto) 10.5 (5.3-12.2) % Eos % (Auto) 0.1 L (0.8-7.0) Baso % (Auto) 0.2 (0.1-1.2) % Neut # (Auto) 7.54 H (1.78-5.38) K/mm3 Lymph # (Auto) 0.86 L (1.32-3.57) K/mm3 [place] # (Auto) 0.99 H (0.30-0.82) K/mm3 Eos # (Auto) 0.01 L (0.04-0.54) K/mm3 Baso # (Auto) 0.02 (0.01-0.08) K/mm3 Manual Slide Review Abnormal smear Sodium 134 L (136-145) mEq/L Potassium 3.0 L (3.5-5.1) mEq/L Chloride 92 L (98-107) mEq/L Carbon Dioxide 30 (21-32) mEq/L Anion Gap 15.0 (5-15) BUN 11 (7-18) mg/dL Creatinine 0.9 (0.7-1.3) mg/dL Est Cr Clr Drug Dosing 132.82 mL/min Estimated GFR (MDRD) > 60 (>60) mL/min BUN/Creatinine Ratio 12.2 L (14-18) Glucose 108 H (74-106) mg/dL Calcium 9.4 (8.5-10.1) mg/dL Magnesium 1.0 L (1.8-2.4) mg/dl Total Bilirubin 1.1 H (0.2-1.0) mg/dL AST 135 H (15-37) U/L ALT 84 H (16-63) U/L Alkaline Phosphatase 90 (46-116) U/L Total Protein 7.5 (6.4-8.2) g/dl Albumin 4.2 (3.4-5.0) g/dl Globulin 3.3 gm/dL Albumin/Globulin Ratio 1.3 (1-2) Ethyl Alcohol 0.00 (0.00) gm% Meds: Medications Generic Name Dose Route Start Last Admin Trade Name Freq PRN Reason Stop Dose Admin Sodium Chloride 1,000 mls @ 1,000 mls/hr 05/15/20 15:00 05/15/20 15:05 Normal Saline IV 1,000 mls/hr .BOLUS NATHANAEL Administration Sodium Chloride 10 ml 05/15/20 14:52 05/15/20 15:05 Saline Flush FLUSH 10 ml ASDIRECTED PRN Administration Keep Vein Open Discontinued Medications Generic Name Dose Route Start Last Admin Trade Name Freq PRN Reason Stop Dose Admin Lorazepam 1 mg 05/15/20 14:52 05/15/20 15:04 Ativan IVPUSH 05/15/20 14:53 1 mg ONETIME ONE Administration - Re-Assessments/Exams Free Text/Narrative Re-Assessment/Exam: 05/15/20 16:12 I ordered an IV NS 1L bolus, ativan 1mg IV, and labs. His WBC was slightly elevated at 9.44. His Hgb was a little low at 12.4. His platelets were low at 133. His Na was low at 134. His K was low at 3. His AST was elevated at 135. His ALT was elevated at 84. His ETOH is 0. I have ordered levels on his meds. That will take about a week. Departure - Departure Time of Disposition: 16:20 Disposition: Home, Self-Care 01 Condition: Good Clinical Impression: Seizure, Hypokalemia - Discharge Information *PRESCRIPTION DRUG MONITORING PROGRAM REVIEWED*: Not Applicable *COPY OF PRESCRIPTION DRUG MONITORING REPORT IN PATIENT ARGENIS: Not Applicable Referrals: PCP,None [Primary Care Provider] - Forms: ED Department Discharge Additional Instructions: Take a multivitamin that contains potassium. Drink plenty of fluids. Avoid alcohol. Get plenty of sleep. I will call you with other lab results. Sepsis Event Note (ED) - Evaluation Sepsis Screening Result: No Definite Risk - Focused Exam Vital Signs: Vital Signs Temp Pulse Resp BP Pulse Ox 05/15/20 14:48 99.2 F 84 16 132/85 95 - My Orders Last 24 Hours: My Active Orders 05/15/20 14:14 LAMOTRIGINE, SERUM [REF] Stat LEVETIRACETAM, S [REF] Stat 05/15/20 14:52 Cardiac Monitoring [RC] . DIRECTED Peripheral IV Care [RC] . DIRECTED Sodium Chloride 0.9% [Saline Flush] 10 ml FLUSH ASDIRECTED PRN Peripheral IV Insertion Adult [OM.PC] Stat 05/15/20 15:00 Sodium Chloride 0.9% [Normal Saline] 1,000 ml IV .BOLUS - Assessment/Plan Last 24 Hours: My Active Orders 05/15/20 14:14 LAMOTRIGINE, SERUM [REF] Stat LEVETIRACETAM, S [REF] Stat 05/15/20 14:52 Cardiac Monitoring [RC] . DIRECTED Peripheral IV Care [RC] . DIRECTED Sodium Chloride 0.9% [Saline Flush] 10 ml FLUSH ASDIRECTED PRN Peripheral IV Insertion Adult [OM.PC] Stat 05/15/20 15:00 Sodium Chloride 0.9% [Normal Saline] 1,000 ml IV .BOLUS
== END 2020-05-15 16:35 | disposition home or self-care (01) ==
LOC: JD.ED 14:45
DX: R56.9 Unspecified convulsions (principal); E87.6 Hypokalemia; F17.210 Nicotine dependence, cigarettes, uncomplicated; Z91.048 Other nonmedicinal substance allergy status; Z79.899 Other long term (current) drug therapy
CPT/HCPCS: 36415; 80053; 80175; 80177; 80307; 83735; 85025; 96361; 96374; 99284; J2060; J7030

== ENCOUNTER 2020-06-19 19:09 | Emergency (ER) | payer MEDICAID, OTHER, SELFPAY ==
[2020-06-19] MEDS ORDERED: Pantoprazole 40 MG Vial IVPUSH ONE (19:57)
[2020-06-19] MEDS ORDERED: Octreotide 50 MCG/1 ML Amp IV STA (19:59)
[2020-06-19] MEDS ORDERED: Ondansetron 4 MG/2 ML SDV IVPUSH ONE ×2 (20:00→21:19)
[2020-06-19] MEDS ORDERED: Sodium Chloride 0.9% 1,000 ML IV ONE (20:00)
[2020-06-19] MEDS ORDERED: Pantoprazole 80 MG in Sodium Chloride 0.9% 100 ML IV SCH (20:00)
[2020-06-19] MEDS ORDERED: Octreotide 500 MCG in Sodium Chloride 0.9% 499 ML IV SCH (20:00)
--- NOTE | 2020-06-19 20:08 | EDM.PDOCBH ---
ED HPI GENERAL MEDICAL PROBLEM - General Chief Complaint: Drug or Alcohol Abuse Stated Complaint: JOSE DANIEL DE LA PAZ Time Seen by Provider: 06/19/20 19:17 Source of Information: Reports: Patient History Limitations: Reports: No Limitations - History of Present Illness INITIAL COMMENTS - FREE TEXT/NARRATIVE: Mr. Espinosa is a pleasant 24-year-old gentleman with a past medical history significant for chronic daily alcoholism and alcohol-related seizures, who now presents to the ED after suffering 2 seizures this afternoon, the first around 16:00, while at work, with a second one sometime between 17:30 and 18:00. He states that he skinned his knees, and that he is otherwise uninjured, but he also showed me a jagged non-bleeding laceration to the right side of his tongue that he likely incurred during one of his seizures today. Shortly after arrival to the ED, he vomited bloody emesis, twice. He denies having abdominal pain. The patient states that he drinks about 20 ounces of vodka per night, with his last drink last night. He states that he has been to inpatient treatment only once, in [place], more than a year ago, staying there for about 2 months. He does not pursue outpatient treatment. He states that he has never had a seizure not related to alcohol, and that he is prescribed Keppra twice a day by a Neurologist whose name he does not recall. He states that he is compliant with his Keppra, with his most recent dose this morning. Here in the ED, the patient's initial BP was mildly elevated at 147/93, with a tachycardia of 129 bpm. He is afebrile, saturating 92% on room air. The patient states that his last seizure was more than 1 month ago. Other than today's seizures and hematemesis, the patient denies having a recent fever, chills, sore throat, ear pain, nasal or sinus congestion, cough, dyspnea, chest pain, palpitations, constipation, diarrhea, abdominal pain, urinary symptoms, recent weight gain or weight loss, recent bloody bowel movements or black bowel movements, recent joint aches, headaches, or rashes. The patient does not have a PCP. He does not recall the name of his Neurologist, whom he last saw more than 6 months ago. - Related Data Allergies Allergy/AdvReac Type Severity Reaction Status Date / Time seasonal Allergy Other Uncoded 05/15/20 14:51 Home Meds: Home Meds levOCARNitine tartrate [L-Carnitine] 1,000 mg PO BID 07/31/18 [History] levETIRAcetam [Levetiracetam] 2 tab PO BID 08/28/18 [History] levETIRAcetam [Levetiracetam] 250 mg PO BID 08/28/18 [History] levETIRAcetam [Keppra] 500 mg PO BID 06/19/20 [History] Past Medical History Musculoskeletal History: Reports: Fracture (left forearm) Neurological History: Reports: Seizure (alcohol-related) Psychiatric History: Reports: Addiction (alcohol), Anxiety (untreatd) - Past Surgical History Musculoskeletal Surgical History: Reports: ORIF (left forearm) Social & Family History - Family History Family Medical History: Noncontributory Respiratory: Reports: COPD - Tobacco Use Smoking Status *Q: Current Every Day Smoker Years of Tobacco use: 9 Packs/Tins Daily: 1 - Caffeine Use Caffeine Use: Reports: None Other Caffeine Use: 1 can/day - Alcohol Use Alcohol Use History: Yes Days Per Week of Alcohol Use: 7 Number of Drinks Per Day: 13 Total Drinks Per Week: 91 Alcohol Use Frequency: Daily - Recreational Drug Use Recreational Drug Use: Yes Drug Use in Last 12 Months: Yes Recreational Drug Type: Reports: Cocaine (last smoked crack 2018), Marijuana/Hashish (smokes near-daily) - Living Situation & Occupation Living situation: Reports: Single, with Family (Father + his father's girlfriend) 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 ED EXAM, BEHAVIORAL HEALTH - Physical Exam Exam: See Below Exam Limited By: No Limitations General Appearance: Alert, WD/WN, No Apparent Distress Eye Exam: Bilateral Eye: EOMI, Normal Inspection Ears: Normal External Exam, Hearing Grossly Normal Nose: Normal Inspection Throat/Mouth: Normal Lips, Normal Voice, No Airway Compromise, Other (jagged, nonbleeding laceration to the right side of the tongue) Head: Normocephalic, Other (Nickel-sized ecchymosis to the left forehead, however, it may be old) Neck: Normal Inspection, Full Range of Motion Respiratory/Chest: No Respiratory Distress, Lungs Clear, Normal Breath Sounds, No Accessory Muscle Use Cardiovascular: Normal Peripheral Pulses, No Edema, No Gallop, No JVD, No Murmur, No Rub, Tachycardia (regular) GI/Abdominal: Normal Bowel Sounds, Soft, Non-Tender, No Organomegaly, No Distention, No Abnormal Bruit, No Mass (Male) Exam: Deferred Rectal (Males) Exam: Deferred Back Exam: Normal Inspection, Full Range of Motion, NT Extremities: Normal Range of Motion, No Pedal Edema, Normal Capillary Refill, Other (Abrasions to the anterior aspects of both knees) Neurological: Alert, Normal Cognition, No Motor/Sensory Deficits, Oriented x 3 Psychiatric: Normal Affect Skin Exam: Warm, Dry, Normal color, No rash COURSE, BEHAVIORAL HEALTH COMP - Course Vital Signs: Last Vital Signs Temp 36.6 C 06/19/20 19:25 Pulse 108 H 06/19/20 21:30 Resp 18 06/19/20 21:30 BP 155/98 H 06/19/20 21:30 Pulse Ox 94 L 06/19/20 21:30 Orders, Labs, Meds: Active Orders 24 hr Category Date Time Status Patient Status [ADT] Routine ADT 06/19/20 21:20 Active Bedrest Bathroom Privileges [RC] ASDIRECTED Care 06/19/20 21:20 Active Blood Glucose Check, Bedside [RC] Q6HR Care 06/19/20 21:20 Active CIWAA Assessment [RC] Q15M Care 06/19/20 21:20 Active CIWAA Assessment [RC] Q1H Care 06/19/20 21:20 Active CIWAA Assessment [RC] Q30M Care 06/19/20 21:20 Active CIWAA Assessment [RC] Q4H Care 06/19/20 21:20 Active Height and Weight [RC] DAILY Care 06/19/20 21:20 Active Intake and Output [RC] QSHIFT Care 06/19/20 21:23 Active Notify Provider Consults [RC] ASDIRECTED Care 06/19/20 21:24 Active Notify Provider [RC] PRN Care 06/19/20 21:20 Active Oxygen Therapy [RC] PRN Care 06/19/20 21:20 Active VTE/DVT Education [RC] PER UNIT ROUTINE Care 06/19/20 21:20 Active Vital Signs [RC] Q4H Care 06/19/20 21:20 Active Consult to Case Management/Cuff Maker [CONS] Cons 06/19/20 21:20 Active Routine Consult to Physician [CONS] Routine Cons 06/19/20 21:20 Active Nothing per Oral Now Diet [DIET] Diet 06/19/20 Breakfast Active BASIC METABOLIC PANEL,BMP [CHEM] AM Lab 06/20/20 05:11 Ordered CBC WITH AUTO DIFF [HEME] Q4H Lab 06/19/20 21:20 Ordered CBC WITH AUTO DIFF [HEME] Q4H Lab 06/20/20 01:20 Ordered CBC WITH AUTO DIFF [HEME] Q4H Lab 06/20/20 05:20 Ordered CBC WITH AUTO DIFF [HEME] Q4H Lab 06/20/20 09:20 Ordered CBC WITH AUTO DIFF [HEME] Q4H Lab 06/20/20 13:20 Ordered CBC WITH AUTO DIFF [HEME] Q4H Lab 06/20/20 17:20 Ordered DRUG SCREEN, URINE [URCHEM] Stat Lab 06/19/20 19:56 Ordered LEVETIRACETAM, S [REF] Stat Lab 06/19/20 19:40 Received MAGNESIUM [CHEM] AM Lab 06/20/20 05:11 Ordered PATIENT RETYPE [BBK] Routine Lab 06/19/20 20:47 Ordered PHOSPHORUS [CHEM] AM Lab 06/20/20 05:11 Ordered Dextrose 50% in Water Med 06/19/20 21:25 Active 50 ml IVPUSH ASDIRECTED PRN LORazepam [Ativan] Med 06/19/20 21:30 Active See Protocol IV ASDIRECTED LORazepam [Ativan] Med 06/19/20 21:30 Active See Protocol PO ASDIRECTED Magnesium Sulfate/Water [Magnesium Sulfate in Water Med 06/19/20 20:56 Active Premix] 2 gm Premix Bag 1 bag IV ONETIME Nicotine [Habitrol] Med 06/20/20 09:00 Active 21 mg TRDERM DAILY Octreotide [SandoSTATIN] 500 mcg Med 06/19/20 20:00 Active Sodium Chloride 0.9% [Normal Saline] 499 ml IV Q10H Ondansetron [Zofran] 8 mg Med 06/19/20 21:30 Active Sodium Chloride 0.9% [Normal Saline] 50 ml IV Q6H Pantoprazole [ProTONIX IV] Med 06/20/20 09:30 Active 40 mg IV Q12H Pantoprazole [ProTONIX IV] 80 mg Med 06/19/20 20:00 Active Sodium Chloride 0.9% [Normal Saline] 100 ml IV Q10H Potassium Chloride [KCl 10 MEQ in Water 100 ML] 10 meq Med 06/19/20 21:00 Active Premix Bag 1 bag IV Q1H Remove Patch Med 06/20/20 09:00 Active 1 ea TRDERM DAILY Thiamine [Vitamin B-1] 1,000 mg Med 06/19/20 21:30 Active Magnesium Sulfate [Magnesium Sulfate 50%] 4 gm Folic Acid 1 mg Dextrose 5%-0.9% NaCl [Dextrose 5%-Normal Saline] 1,000 ml IV ASDIRECTED Resuscitation Status Routine Resus Stat 06/19/20 21:20 Ordered Medication Orders Dextrose/Water (Dextrose 50% In Water) 50 ml IVPUSH ASDIRECTED PRN PRN Reason: Hypoglycemia Pantoprazole Sodium 80 mg/ (Sodium Chloride) 100 mls @ 10 mls/hr IV Q10H [facility] Last Admin: 06/19/20 20:52 Dose: 8 mg/hr, 10 mls/hr Documented by: SUNDARERENAKITA Octreotide Acetate 500 mcg/ (Sodium Chloride) 500 mls @ 50 mls/hr IV Q10H [facility] Last Admin: 06/19/20 20:54 Dose: 50 mcg/hr, 50 mls/hr Documented by: SUNDARERENAKITA Potassium Chloride 10 meq/ (Premix) 100 mls @ 100 mls/hr IV Q1H NATHANAEL Stop: 06/20/20 00:59 Magnesium Sulfate 2 gm/ Premix 50 mls @ 25 mls/hr IV ONETIME ONE Stop: 06/19/20 22:55 Last Admin: 06/19/20 21:14 Dose: 25 mls/hr Documented by: GLORIA Ondansetron HCl 8 mg/ Sodium (Chloride) 54 mls @ 100 mls/hr IV Q6H [facility] Last Admin: 06/19/20 21:29 Dose: Not Given Documented by: SUNDARERELI Thiamine HCl 1,000 mg/Magnesium Sulfate 4 gm/ Folic Acid 1 mg/ Dextrose/Sodium Chloride 1,018.2 mls @ 125 mls/hr IV ASDIRECTED NATHANAEL Lorazepam (Ativan) 0 mg IV ASDIRECTED NATHANAEL; Protocol Lorazepam (Ativan) 0 mg PO ASDIRECTED NATHANAEL; Protocol Miscellaneous Information (Remove Patch) 1 ea TRDERM DAILY NATHANAEL Nicotine (Habitrol) 21 mg TRDERM DAILY NATHANAEL Pantoprazole Sodium (Protonix Iv) 40 mg IV Q12H NATHANAEL Laboratory Tests 06/19/20 06/19/20 06/19/20 Range/Units 19:40 19:40 19:40 WBC 10.46 H (4.23-9.07) K/mm3 RBC 4.05 L (4.63-6.08) M/mm3 Hgb 14.1 (13.7-17.5) gm/dl Hct 40.0 L (40.1-51.0) % MCV 98.8 H D (79.0-92.2) fl MCH 34.8 H (25.7-32.2) pg MCHC 35.3 (32.2-35.5) g/dl RDW Std Deviation 45.5 H (35.1-43.9) fL Plt Count 239 (163-337) K/mm3 MPV 9.2 L (9.4-12.3) fl Neut % (Auto) 84.8 H (34.0-67.9) % Lymph % (Auto) 6.1 L (21.8-53.1) % [place] % (Auto) 8.6 (5.3-12.2) % Eos % (Auto) 0 L (0.8-7.0) Baso % (Auto) 0.3 (0.1-1.2) % Neut # (Auto) 8.87 H (1.78-5.38) K/mm3 Lymph # (Auto) 0.64 L (1.32-3.57) K/mm3 [place] # (Auto) 0.90 H (0.30-0.82) K/mm3 Eos # (Auto) 0.00 L (0.04-0.54) K/mm3 Baso # (Auto) 0.03 (0.01-0.08) K/mm3 Manual Slide Review Abnormal smear PT (9.7-12.0) SECONDS INR APTT (22-31) SECONDS Sodium 132 L (136-145) mEq/L Potassium 3.3 L (3.5-5.1) mEq/L Chloride 91 L (98-107) mEq/L Carbon Dioxide 17 L D (21-32) mEq/L Anion Gap 27.3 H (5-15) BUN 15 (7-18) mg/dL Creatinine 1.1 (0.7-1.3) mg/dL Est Cr Clr Drug Dosing 115.26 mL/min Estimated GFR (MDRD) > 60 (>60) mL/min BUN/Creatinine Ratio 13.6 L (14-18) Glucose 117 H (74-106) mg/dL Calcium 9.3 (8.5-10.1) mg/dL Phosphorus 3.3 (2.6-4.7) mg/dL Magnesium 1.4 L (1.8-2.4) mg/dl Total Bilirubin 0.9 (0.2-1.0) mg/dL AST 140 H (15-37) U/L ALT 63 (16-63) U/L Alkaline Phosphatase 91 (46-116) U/L Total Protein 8.4 H (6.4-8.2) g/dl Albumin 4.7 (3.4-5.0) g/dl Globulin 3.7 gm/dL Albumin/Globulin Ratio 1.3 (1-2) Ethyl Alcohol 0.05 (0.00) gm% COVID-19 (VÍCTOR) (NEGATIVE) Blood Type AB NEGATIVE Gel Antibody Screen Negative 06/19/20 06/19/20 Range/Units 19:40 21:02 WBC (4.23-9.07) K/mm3 RBC (4.63-6.08) M/mm3 Hgb (13.7-17.5) gm/dl Hct (40.1-51.0) % MCV (79.0-92.2) fl MCH (25.7-32.2) pg MCHC (32.2-35.5) g/dl RDW Std Deviation (35.1-43.9) fL Plt Count (163-337) K/mm3 MPV (9.4-12.3) fl Neut % (Auto) (34.0-67.9) % Lymph % (Auto) (21.8-53.1) % [place] % (Auto) (5.3-12.2) % Eos % (Auto) (0.8-7.0) Baso % (Auto) (0.1-1.2) % Neut # (Auto) (1.78-5.38) K/mm3 Lymph # (Auto) (1.32-3.57) K/mm3 [place] # (Auto) (0.30-0.82) K/mm3 Eos # (Auto) (0.04-0.54) K/mm3 Baso # (Auto) (0.01-0.08) K/mm3 Manual Slide Review PT 10.0 (9.7-12.0) SECONDS INR 0.93 APTT 25 (22-31) SECONDS Sodium (136-145) mEq/L Potassium (3.5-5.1) mEq/L Chloride (98-107) mEq/L Carbon Dioxide (21-32) mEq/L Anion Gap (5-15) BUN (7-18) mg/dL Creatinine (0.7-1.3) mg/dL Est Cr Clr Drug Dosing mL/min Estimated GFR (MDRD) (>60) mL/min BUN/Creatinine Ratio (14-18) Glucose (74-106) mg/dL Calcium (8.5-10.1) mg/dL Phosphorus (2.6-4.7) mg/dL Magnesium (1.8-2.4) mg/dl Total Bilirubin (0.2-1.0) mg/dL AST (15-37) U/L ALT (16-63) U/L Alkaline Phosphatase (46-116) U/L Total Protein (6.4-8.2) g/dl Albumin (3.4-5.0) g/dl Globulin gm/dL Albumin/Globulin Ratio (1-2) Ethyl Alcohol (0.00) gm% COVID-19 (VÍCTOR) Negative (NEGATIVE) Blood Type Gel Antibody Screen Medications Generic Name Dose Route Start Last Admin Trade Name Freq PRN Reason Stop Dose Admin Dextrose/Water 50 ml 06/19/20 21:25 Dextrose 50% In Water IVPUSH ASDIRECTED PRN Hypoglycemia Pantoprazole Sodium 80 mg/ 100 mls @ 10 mls/hr 06/19/20 20:00 06/19/20 20:52 Sodium Chloride IV 8 mg/hr Q10H NATHANAEL 10 mls/hr Administration 8 MG/HR Octreotide Acetate 500 mcg/ 500 mls @ 50 mls/hr 06/19/20 20:00 06/19/20 20:54 Sodium Chloride IV 50 mcg/hr Q10H NATHANAEL 50 mls/hr Administration 50 MCG/HR Potassium Chloride 10 meq/ 100 mls @ 100 mls/hr 06/19/20 21:00 Premix IV 06/20/20 00:59 Q1H NATHANAEL Magnesium Sulfate 2 gm/ Premix 50 mls @ 25 mls/hr 06/19/20 20:56 06/19/20 21:14 IV 06/19/20 22:55 25 mls/hr ONETIME ONE Administration Ondansetron HCl 8 mg/ Sodium 54 mls @ 100 mls/hr 06/19/20 21:30 06/19/20 21:29 Chloride IV Not Given Q6H NATHANAEL Thiamine HCl 1,000 mg/ 1,018.2 mls @ 125 mls/hr 06/19/20 21:30 Magnesium Sulfate 4 gm/ Folic IV Acid 1 mg/ Dextrose/Sodium ASDIRECTED NATHANAEL Chloride Lorazepam 0 mg 06/19/20 21:30 Ativan IV ASDIRECTED NATHANAEL Protocol Lorazepam 0 mg 06/19/20 21:30 Ativan PO ASDIRECTED NATHANAEL Protocol Miscellaneous Information 1 ea 06/20/20 09:00 Remove Patch TRDERM DAILY NATHANAEL Nicotine 21 mg 06/20/20 09:00 Habitrol TRDERM DAILY NATHANAEL Pantoprazole Sodium 40 mg 06/20/20 09:30 Protonix Iv IV Q12H NATHANAEL Discontinued Medications Generic Name Dose Route Start Last Admin Trade Name Freq PRN Reason Stop Dose Admin Dexmedetomidine HCl 0.2 mcg 06/19/20 20:53 06/19/20 20:59 Precedex IV 06/19/20 20:54 Not Given ONETIME ONE Protocol Sodium Chloride 1,000 mls @ 999 mls/hr 06/19/20 20:00 06/19/20 20:57 Normal Saline IV 06/19/20 21:00 999 mls/hr ONETIME ONE Administration Magnesium Sulfate/Dextrose 1 100 mls @ 100 mls/hr 06/19/20 20:52 06/19/20 20:59 gm/ Premix IV 06/19/20 21:51 Not Given ONETIME ONE Lorazepam Confirm 06/19/20 20:48 06/19/20 20:57 Ativan Administered 06/19/20 20:49 Not Given Dose 4 mg .ROUTE .STK-MED ONE Lorazepam 1 mg 06/19/20 20:52 06/19/20 20:58 Ativan IVPUSH 06/19/20 20:53 1 mg ONETIME STA Administration Octreotide Acetate 50 mcg 06/19/20 19:59 06/19/20 21:03 Sandostatin IV 06/19/20 20:00 Not Given ONETIME STA Octreotide Acetate 50 mcg 06/19/20 21:30 06/19/20 21:03 Octreotide IV 06/19/20 21:31 50 mcg ONETIME ONE Administration Ondansetron HCl 4 mg 06/19/20 20:00 06/19/20 20:07 Zofran IVPUSH 06/19/20 20:01 4 mg ONETIME ONE Administration Ondansetron HCl 4 mg 06/19/20 21:19 06/19/20 21:24 Zofran IVPUSH 06/19/20 21:20 4 mg ONETIME ONE Administration Pantoprazole Sodium 80 mg 06/19/20 19:57 06/19/20 20:56 Protonix Iv IVPUSH 06/19/20 19:58 80 mg BOLUS ONE Administration Medical Clearance: 06/19/20 20:01 As above, the patient appears to have suffered two alcohol-related seizures this afternoon, then, after arriving to the ED, had 2 episodes of bloody hematemesis. He has a jagged laceration to the right side of his tongue that is not currently bleeding, but likely was, given its size. I suspect that the patient swallowed blood when he seized and bit his tongue, which is what he vomited here in the ED, however, because he is an alcoholic and is tachycardic, there is always a possibility that he has cirrhosis with esophageal varices. I explained to the patient that one way to distinguish between the two would be to have an NG tube placed; if the NG tube continued to produce fresh blood, then he likely has an upper GI bleed, whereas if there was little or no blood in his stomach, then his hematemesis was likely due to swallowing blood. The patient, however, adamantly refused to have an NG tube placed. I have therefore ordered a work-up that includes LFTs and coags, to look for laboratory evidence of cirrhosis, and have ordered a treatment that includes IV fluid, IV Zofran, IV pantoprazole by push and drip, and IV octreotide by push and drip. I will recommend admission to the hospital, however, the patient has already made some overtures that he is not interested in being admitted. 06/19/20 20:52 The patient suffered a seizure here in the ED, lasting about 1 minute. He was given 1 mg of IV Ativan. The patient's CBC is remarkable for WBC count mildly elevated at 10.46. His Hct is slightly depressed at 40.0, but his Hgb is within normal limits at 14.1, with the remainder of his CBC being unremarkable. His CMP is remarkable for a sodium slightly depressed at 132, a potassium mildly depressed at 3.3, and his bicarbonate depressed at 17 with an anion gap elevated at 27.3, and a blood glucose mildly elevated 117, with the remainder of his CMP being unremarkable. His magnesium level is significantly depressed at 1.4. His phosphorus level is within normal limits at 3.3. His EtOH level is mildly elevated at 0.05. The patient has not yet provided a urine sample for the urine drug screen. A test for the SARS-CoV-2 virus was ordered earlier. 06/19/20 21:[address] Briggs here in the ED. She accepted the patient for admission to the ICU. 06/19/20 22:34 The patient's test for the SARS-CoV-2 virus has returned negative. He did not provide a urine sample for the urine drug screen. Notified by Ana Lilia FULLER that the patient has decided he wants to go home. She tried to talk him out of it, including explaining that he might of a seizure, but the patient is adamant, and states that he already has a ride coming to get him. I will have him sign AMA. 06/19/20 22:40 Notified by Melanie FULLER that the patient left the ED without waiting for his discharge instructions. Departure - Departure Time of Disposition: 22:34 Disposition: Against Medical Advice 07 Condition: Fair Clinical Impression: Alcohol dependence, daily use, Alcohol related seizure, Hypomagnesemia, Hypokalemia, High anion gap metabolic acidosis - Discharge Information *PRESCRIPTION DRUG MONITORING PROGRAM REVIEWED*: Not Applicable *COPY OF PRESCRIPTION DRUG MONITORING REPORT IN PATIENT ARGENIS: Not Applicable Referrals: PCP,None [Primary Care Provider] - Additional Instructions: You were seen in the emergency room after suffering 2 seizures this afternoon, associated with large quantity nightly drinking. You vomited blood twice in the ER. You suffered an additional seizure while in the ER. Work-up in the ER included blood work and a test for the novel coronavirus. Your work-up found significant electrolyte abnormalities including low potassium, low magnesium, and a high anion gap metabolic acidosis. You were treated with medications to decrease the likelihood of a GI bleed, along with IV fluid, IV magnesium, antinausea medicine, and IV Ativan. Arrangements to be admitted to the ICU were made, however, you have elected to leave the hospital AGAINST MEDICAL ADVICE. If you change your mind, please do not hesitate to return to the ER. We strongly recommend that you seek professional help to stop drinking. We recommend that you go to [facility]: [address] [facility] IanUna Gruber [phone] Sepsis Event Note (ED) - Evaluation Sepsis Screening Result: No Definite Risk - Focused Exam Vital Signs: Vital Signs Temp Pulse Resp BP Pulse Ox 06/19/20 21:30 108 H 18 155/98 H 94 L 06/19/20 19:25 36.6 C 129 H 16 147/98 H 92 L - My Orders Last 24 Hours: My Active Orders 06/19/20 19:56 DRUG SCREEN, URINE [URCHEM] Stat 06/19/20 20:00 Octreotide [SandoSTATIN] 500 mcg Sodium Chloride 0.9% [Normal Saline] 499 ml IV Q10H Pantoprazole [ProTONIX IV] 80 mg Sodium Chloride 0.9% [Normal Saline] 100 ml IV Q10H 06/19/20 20:47 PATIENT RETYPE [BBK] Routine 06/19/20 20:56 Magnesium Sulfate/Water [Magnesium Sulfate in Water Premix] 2 gm Premix Bag 1 bag IV ONETIME - Assessment/Plan Last 24 Hours: My Active Orders 06/19/20 19:56 DRUG SCREEN, URINE [URCHEM] Stat 06/19/20 20:00 Octreotide [SandoSTATIN] 500 mcg Sodium Chloride 0.9% [Normal Saline] 499 ml IV Q10H Pantoprazole [ProTONIX IV] 80 mg Sodium Chloride 0.9% [Normal Saline] 100 ml IV Q10H 06/19/20 20:47 PATIENT RETYPE [BBK] Routine 06/19/20 20:56 Magnesium Sulfate/Water [Magnesium Sulfate in Water Premix] 2 gm Premix Bag 1 bag IV ONETIME
[2020-06-19] MEDS ORDERED: LORazepam 2 MG/ML SDV ONE (20:48)
[2020-06-19] MEDS ORDERED: LORazepam 2 MG/ML SDV IVPUSH STA (20:52)
[2020-06-19] MEDS ORDERED: Dexmedetomidine 200 MCG/2 ML SDV IV ONE (20:53)
[2020-06-19] MEDS ORDERED: Magnesium Sulfate/Water 2 GM in Premix Bag 1 BAG IV ONE (20:56)
[2020-06-19] MEDS ORDERED: Potassium Chloride 10 MEQ in Premix Bag 1 BAG IV SCH (21:00)
[2020-06-19] MEDS ORDERED: 50% Dextrose in Water 50 ML Syringe IVPUSH PRN (21:25)
[2020-06-19] MEDS ORDERED: LORazepam 1 MG Tab PO SCH (21:30)
[2020-06-19] MEDS ORDERED: Thiamine 1,000 MG, Magnesium Sulfate 4 GM, Folic Acid 1 MG in Dextrose 5%-0.9% NaCl 1,0... IV SCH (21:30)
[2020-06-19] MEDS ORDERED: Ondansetron 8 MG in Sodium Chloride 0.9% 50 ML IV SCH (21:30)
[2020-06-19] MEDS ORDERED: LORazepam 2 MG/ML SDV IV SCH (21:30)
--- NOTE | 2020-06-19 21:31 | PCM.HP.2 ---
H&P History of Present Illness - General Date of Service: 06/19/20 Admit Problem/Dx: Admission Diagnosis/Problem Admission Diagnosis/Problem Alcohol withdrawal seizure - History of Present Illness Initial Comments - Free Text/Narative: This is a 24-year-old male with past medical history of alcoholic seizures to c ome to the emergency department after having 2 seizures this afternoon at work. As per patient today while he was at work he had a seizure around 4 PM and then again between 530 and 6 PM for which she decided come to emergency department. Patient states he has been an avid drinker for multiple years. States last seizure was more than a month ago Has been drinking daily for about a month, 20 ounces of vodka every night. Has had inpatient treatment once more than a year ago in [place] for about 2 m [facility]. Is followed up with a neurologist, last appointment about 6 months ago, for alcoholic seizures. Currently on Keppra, states he took it this morning. - Related Data Allergies/Adverse Reactions: Allergies Allergy/AdvReac Type Severity Reaction Status Date / Time seasonal Allergy Other Uncoded 05/15/20 14:51 Home Medications: Home Meds levOCARNitine tartrate [L-Carnitine] 1,000 mg PO BID 07/31/18 [History] levETIRAcetam [Levetiracetam] 2 tab PO BID 08/28/18 [History] levETIRAcetam [Levetiracetam] 250 mg PO BID 08/28/18 [History] levETIRAcetam [Keppra] 500 mg PO BID 06/19/20 [History] Past Medical History HEENT History: Reports: Other (See Below) Other HEENT History: missing tooth. Gastrointestinal History: Reports: Gastritis, GERD Genitourinary History: Reports: Renal Disease Musculoskeletal History: Reports: Fracture (left forearm) Other Musculoskeletal History: broke both arms, ankle Neurological History: Reports: Seizure (alcohol-related) Psychiatric History: Reports: Addiction (alcohol), Anxiety (untreatd) - Past Surgical History Musculoskeletal Surgical History: Reports: ORIF (left forearm) Social & Family History - Family History Family Medical History: Noncontributory Respiratory: Reports: COPD - Tobacco Use Smoking Status *Q: Current Every Day Smoker Years of Tobacco use: 9 Packs/Tins Daily: 1 - Caffeine Use Caffeine Use: Reports: None Other Caffeine Use: 1 can/day - Alcohol Use Days Per Week of Alcohol Use: 7 Number of Drinks Per Day: 13 Total Drinks Per Week: 91 - Recreational Drug Use Recreational Drug Use: Yes Drug Use in Last 12 Months: Yes Recreational Drug Type: Reports: Cocaine (last smoked crack 2019), Marijuana/Hashish (smokes near-daily) - Living Situation & Occupation Living situation: Reports: Single, with Family (Father + his father's girlfriend) 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 Denies: Chest Pain, Palpitations, D yspnea on Exertion, Orthopnea, PND, Edema Gastrointestinal: Reports: Hematemesis, Nausea, Vomiting. Denies: Abdominal Pain, Anorexia, Black Stool, Bloody Stool, Constipation, Diarrhea, Decreased Appetite, Difficulty Swallowing, Distension, Flatus Genitourinary: Denies: Dysuria, Frequency, Burning, Pain Musculoskeletal: Denies: Joint Pain, Joint Swelling, Muscle Pain, Muscle Stiffness Skin: Denies: Cyanosis, Jaundice, Mottled Psychiatric: Denies: Confusion, Depression, Mood Lability Neurological: Reports: Dizziness, Headache. Denies: Numbness, Paresthesia Exam - Exam Exam: See Below - Vital Signs Vital Signs: Last Vital Signs Temp 97.9 F 06/19/20 19:25 Pulse 129 H 06/19/20 19:25 Resp 16 06/19/20 19:25 BP 147/98 H 06/19/20 19:25 Pulse Ox 92 L 06/19/20 19:25 Weight: 79.379 kg - Exam General: Other (Intoxicated but arousable) HEENT: Mucosa Moist & [place], Other (Ecchymotic lesion on the left side of his tongue likely bite after or during seizure). No: Conjunctiva Clear (Injected and erythematous) Neck: Supple, Trachea Midline, +2 Carotid Pulse wo Bruit, Full Range of Motion Lungs: Clear to Auscultation, Normal Respiratory Effort. No: Decreased Breath Sounds, Crackles, Rales, Rhonchi, Rub, Stridor, Wheezing Cardiovascular: Regular Rate, Regular Rhythm. No: Systolic Murmur, Diastolic Murmur, Rubs, Gallop/S3, Gallop/S4 GI/Abdominal Exam: Normal Bowel Sounds, Soft, Tender (in epigastrium). No: Distended, Guarding, Rigid, Rebound Back Exam: Normal Inspection Extremities: No Pedal Edema, Other (Excoriations on bilateral knees, superficial, no active bleeding) Peripheral Pulses: 2+: Radial (L), Radial (R), Dorsalis Pedis (L), Dorsalis Pedis (R) Skin: Warm, Dry - Patient Data Result Diagrams: 06/19/20 19:40 06/19/20 19:40 Sepsis Event Note - Evaluation Sepsis Screening Result: No Definite Risk - Problem List (1) Hyponatremia SNOMED Code(s): 24382338 ICD Code: E87.1 - HYPO-OSMOLALITY AND HYPONATREMIA Status: Acute (2) Hematemesis SNOMED Code(s): 0173178 ICD Code: K92.0 - HEMATEMESIS Status: Acute (3) Recurrent seizures SNOMED Code(s): 18300989, 42738682 ICD Code: G40.909 - EPILEPSY, UNSP, NOT INTRACTABLE, WITHOUT STATUS EPILEPTICUS Status: Acute (4) Nicotine dependence SNOMED Code(s): 98763348 ICD Code: F17.200 - NICOTINE DEPENDENCE, UNSPECIFIED, UNCOMPLICATED Status: Acute (5) Hypomagnesemia SNOMED Code(s): 986958585 ICD Code: E83.42 - HYPOMAGNESEMIA Status: Acute (6) Hypokalemia SNOMED Code(s): 07983333 ICD Code: E87.6 - HYPOKALEMIA Status: Acute (7) High anion gap metabolic acidosis SNOMED Code(s): 37397104 ICD Code: E87.2 - ACIDOSIS Status: Acute (8) Confusion after a seizure SNOMED Code(s): 20047489 ICD Code: F05 - DELIRIUM DUE TO KNOWN PHYSIOLOGICAL CONDITION Status: Acute (9) Alcohol related seizure SNOMED Code(s): 31586050, 868468223 ICD Code: R56.9 - UNSPECIFIED CONVULSIONS Status: Acute (10) Alcohol intoxication SNOMED Code(s): 59203437 ICD Code: F10.929 - ALCOHOL USE, UNSPECIFIED WITH INTOXICATION, UNSPECIFIED Status: Acute Qualifiers: Complication of substance-induced condition: with unspecified complication Qualified Code(s): F10.929 - Alcohol use, unspecified with intoxication, unspecified (11) Alcohol dependence, daily use SNOMED Code(s): 437333820 ICD Code: F10.20 - ALCOHOL DEPENDENCE, UNCOMPLICATED Status: Acute (12) Alcohol abuse SNOMED Code(s): 81549453 ICD Code: F10.10 - ALCOHOL ABUSE, UNCOMPLICATED Status: Acute Orders Last 24hrs: Active Orders 24 hr Category Date Time Status Patient Status [ADT] Routine ADT 06/19/20 21:20 Ordered Bedrest Bathroom Privileges [RC] ASDIRECTED Care 06/19/20 21:20 Ordered Blood Glucose Check, Bedside [RC] Q6HR Care 06/19/20 21:20 Ordered CIWAA Assessment [RC] Q15M Care 06/19/20 21:20 Ordered CIWAA Assessment [RC] Q1H Care 06/19/20 21:20 Ordered CIWAA Assessment [RC] Q30M Care 06/19/20 21:20 Ordered CIWAA Assessment [RC] Q4H Care 06/19/20 21:20 Ordered Height and Weight [RC] DAILY Care 06/19/20 21:20 Ordered Intake and Output [RC] QSHIFT Care 06/19/20 21:23 Ordered Notify Provider Consults [RC] ASDIRECTED Care 06/19/20 21:24 Ordered Notify Provider [RC] PRN Care 06/19/20 21:20 Ordered Oxygen Therapy [RC] PRN Care 06/19/20 21:20 Ordered VTE/DVT Education [RC] PER UNIT ROUTINE Care 06/19/20 21:20 Ordered Vital Signs [RC] Q4H Care 06/19/20 21:20 Ordered Consult to Case Management/Program Aide [CONS] Cons 06/19/20 21:20 Ordered Routine Consult to Physician [CONS] Routine Cons 06/19/20 21:20 Ordered Nothing per Oral Now Diet [DIET] Diet 06/19/20 Breakfast Ordered BASIC METABOLIC PANEL,BMP [CHEM] AM Lab 06/20/20 05:11 Ordered CBC WITH AUTO DIFF [HEME] Q4H Lab 08/17/20 21:20 Ordered CBC WITH AUTO DIFF [HEME] Q4H Lab 06/20/20 01:20 Ordered CBC WITH AUTO DIFF [HEME] Q4H Lab 06/20/20 05:20 Ordered CBC WITH AUTO DIFF [HEME] Q4H Lab 06/20/20 09:20 Ordered CBC WITH AUTO DIFF [HEME] Q4H Lab 06/20/20 13:20 Ordered CBC WITH AUTO DIFF [HEME] Q4H Lab 06/20/20 17:20 Ordered CORONAVIRUS COVID-19 RAPID [MOLEC] Routine Lab 06/19/20 21:02 Received DRUG SCREEN, URINE [URCHEM] Stat Lab 06/19/20 19:56 Ordered LEVETIRACETAM, S [REF] Stat Lab 06/19/20 19:40 Received MAGNESIUM [CHEM] AM Lab 06/20/20 05:11 Ordered PATIENT RETYPE [BBK] Routine Lab 06/19/20 20:47 Ordered PHOSPHORUS [CHEM] AM Lab 06/20/20 05:11 Ordered Dextrose 50% in Water Med 06/19/20 21:25 Ordered 50 ml IVPUSH ASDIRECTED PRN LORazepam [Ativan] Med 06/19/20 21:30 Ordered See Protocol IV ASDIRECTED LORazepam [Ativan] Med 06/19/20 21:30 Ordered See Protocol PO ASDIRECTED Magnesium Sulfate/D5W [Magnesium Sulfate in D5W 100 Med 06/19/20 20:52 Active Premix] 1 gm Premix Bag 1 bag IV ONETIME Magnesium Sulfate/Water [Magnesium Sulfate in Water Med 06/19/20 20:56 Active Premix] 2 gm Premix Bag 1 bag IV ONETIME Nicotine [Habitrol] Med 06/20/20 09:00 Ordered 21 mg TRDERM DAILY Octreotide Med 06/19/20 21:30 Once 50 mcg IV ONETIME ONE Octreotide [SandoSTATIN] 500 mcg Med 06/19/20 20:00 Active Sodium Chloride 0.9% [Normal Saline] 499 ml IV Q10H Ondansetron [Zofran] 8 mg Med 06/19/20 21:30 Ordered Sodium Chloride 0.9% [Normal Saline] 50 ml IV Q6H Pantoprazole [ProTONIX IV] Med 06/20/20 09:30 Ordered 40 mg IV Q12H Pantoprazole [ProTONIX IV] 80 mg Med 06/19/20 20:00 Active Sodium Chloride 0.9% [Normal Saline] 100 ml IV Q10H Potassium Chloride [KCl 10 MEQ in Water 100 ML] 10 meq Med 06/19/20 21:00 Ac tive Premix Bag 1 bag IV Q1H Thiamine [Vitamin B-1] 1,000 mg Med 06/19/20 21:30 Ordered Magnesium Sulfate [Magnesium Sulfate 50%] 4 gm Folic Acid 1 mg Dextrose 5%-0.9% NaCl [Dextrose 5%-Normal Saline] 1,000 ml IV ASDIRECTED Resuscitation Status Routine Resus Stat 06/19/20 21:20 Ordered Medication Orders Pantoprazole Sodium 80 mg/ (Sodium Chloride) 100 mls @ 10 mls/hr IV Q10H COUNTS INCLUDE 234 BEDS AT THE [facility] Last Admin: 06/19/20 20:52 Dose: 8 mg/hr, 10 mls/hr Documented by: GLORIA Octreotide Acetate 500 mcg/ (Sodium Chloride) 500 mls @ 50 mls/hr IV Q10H COUNTS INCLUDE 234 BEDS AT THE [facility] Last Admin: 06/19/20 20:54 Dose: 50 mcg/hr, 50 mls/hr Documented by: GLORIA Magnesium Sulfate/Dextrose 1 (gm/ Premix) 100 mls @ 100 mls/hr IV ONETIME ONE Stop: 06/19/20 21:51 Last Admin: 06/19/20 20:59 Dose: Not Given Documented by: GLORIA Potassium Chloride 10 meq/ (Premix) 100 mls @ 100 mls/hr IV Q1H COUNTS INCLUDE 234 BEDS AT THE [facility] Stop: 06/20/20 00:59 Magnesium Sulfate 2 gm/ Premix 50 mls @ 25 mls/hr IV ONETIME ONE Stop: 06/19/20 22:55 Last Admin: 06/19/20 21:14 Dose: 25 mls/hr Documented by: GLORIA Octreotide Acetate (Octreotide) 50 mcg IV ONETIME ONE Stop: 06/19/20 21:31 Last Admin: 06/19/20 21:03 Dose: 50 mcg Documented by: GLORIA Assessment/Plan Comment:: After arriving to the ED, had 2 episodes of bloody hematemesis. He has a jagged laceration to the right side of his tongue that is not currently bleeding, but likely was, given its size. I suspect that the patient swallowed blood when he seized and bit his tongue, which is what he vomited here in the ED, however, because he is an alcoholic and is tachycardic, there is always a possibility that he has cirrhosis with esophageal varices. I explained to the patient that one way to distinguish between the two would be to have an NG tube placed; if the NG tube continued to produce fresh blood, then he likely has an upper GI bleed, whereas if there was little or no blood in his stomach, then his hematemesis was likely due to swallowing blood. The patient, however, adamantly refused to have an NG tube placed. I have therefore ordered a work-up that includes LFTs and coags, to look for laboratory evidence of cirrhosis, and have ordered a treatment that includes IV fluid, IV Zofran, IV pantoprazole by push and drip, and IV octreotide by push and drip. I will recommend admission to the hospital, however, the patient has already made some overtures that he is not interested in being admitted. 06/19/20 20:52 The patient suffered a seizure here in the ED, lasting about 1 minute. He was given 1 mg of IV Ativan. The patient's CBC is remarkable for WBC count mildly elevated at 10.46. His Hct is slightly depressed at 40.0, but his Hgb is within normal limits at 14.1, with the remainder of his CBC being unremarkable. His CMP is remarkable for a sodium slightly depressed at 132, a potassium mildly depressed at 3.3, and his bicarbonate depressed at 17 with an anion gap elevated at 27.3, and a blood glucose mildly elevated 117, with the remainder of his CMP being unremarkable. His magnesium level is significantly depressed at 1.4. His phosphorus level is within normal limits at 3.3. His EtOH level is mildly elevated at 0.05. The patient has not yet provided a urine sample for the urine drug screen. A test for the SARS-CoV-2 virus was ordered earlier.
[2020-06-19 21:34] VITALS: BP 155/98; PULSE 108
[2020-06-20] MEDS ORDERED: Nicotine 21 MG/24 Hr Patch TRDERM SCH (09:00)
[2020-06-20] MEDS ORDERED: Pantoprazole 40 MG Vial IV SCH (09:30)
== END 2020-06-19 22:40 | disposition left against medical advice (07) ==
LOC: JD.ED 19:09
DX: R56.9 Unspecified convulsions (principal); E87.6 Hypokalemia; E83.42 Hypomagnesemia; F10.20 Alcohol dependence, uncomplicated; E87.2 Acidosis; S01.512A Laceration without foreign body of oral cavity, initial encounter; S80.212A Abrasion, left knee, initial encounter; S80.211A Abrasion, right knee, initial encounter; F17.210 Nicotine dependence, cigarettes, uncomplicated; Z91.048 Other nonmedicinal substance allergy status; Z20.828 Contact with and (suspected) exposure to other viral communicable diseases; Z79.899 Other long term (current) drug therapy; X58.XXXA Exposure to other specified factors, initial encounter
CPT/HCPCS: 36415; 80053; 80177; 80307; 83735; 84100; 85025; 85610; 85730; 86850; 86900; 86901; 87635; 96365; 96367; 96368; 96375; 96376; 99284; C9113; J2060; J2354; J2405; J3475; J7030; J7040; J7050; U0002

== ENCOUNTER 2020-07-16 17:18 | Emergency (ER) | payer MEDICAID, OTHER, SELFPAY ==
[2020-07-16] MEDS ORDERED: LORazepam 2 MG/ML SDV IVPUSH ONE (18:02)
--- NOTE | 2020-07-16 18:16 | EDM.PDOC ---
ED HPI GENERAL MEDICAL PROBLEM - General Chief Complaint: Neurological Problem Stated Complaint: [facility] Time Seen by Provider: 07/16/20 17:55 Source of Information: Reports: Patient, RN Notes Reviewed History Limitations: Reports: No Limitations - History of Present Illness INITIAL COMMENTS - FREE TEXT/NARRATIVE: Patient is a 24-year-old male who presents to the ED via [facility] for the evaluation of seizure-like activity. Patient has a known history of seizures, and takes lamotrigine and Keppra for management, he states that he is taking his medications faithfully. He was witnessed by his family to have a "full body seizure", that they thought lasted for about of 1.5 minutes, he did not bite his tongue, nor did he lose control of his bladder, he cannot remember having a seizure, but he states he commonly does not remember these things. He is alert and oriented upon arrival to the ER, we were told that he has had 3 of these seizures in the past month. He notes that he has been drinking quite heavily, about a half bottle of vodka daily, and he ceased use of this last week. He states that he is not hearing things or seeing things that are not there, he is feeling a little bit shaky, but otherwise feeling well. He further denies any fever/chills, cough/shortness of breath, nausea/vomiting/diarrhea. - Related Data Allergies Allergy/AdvReac Type Severity Reaction Status Date / Time seasonal Allergy Other Uncoded 07/16/20 17:34 Home Meds: Home Meds levETIRAcetam [Keppra] 1,000 mg PO BID 06/19/20 [History] lamoTRIgine [Lamotrigine] 150 mg PO BID 07/16/20 [History] Past Medical History HEENT History: Reports: Other (See Below) Other HEENT History: missing tooth. Gastrointestinal History: Reports: Gastritis, GERD Genitourinary History: Reports: Renal Disease Musculoskeletal History: Reports: Fracture Other Musculoskeletal History: broke both arms, ankle Neurological History: Reports: Seizure Psychiatric History: Reports: Addiction, Anxiety - Past Surgical History Musculoskeletal Surgical History: Reports: ORIF Social & Family History - Family History Family Medical History: Noncontributory Respiratory: Reports: COPD - Tobacco Use Smoking Status *Q: Current Every Day Smoker Years of Tobacco use: 4 Packs/Tins Daily: 1 - Caffeine Use Caffeine Use: Reports: Soda, Tea Other Caffeine Use: 1 can/day - Recreational Drug Use Recreational Drug Use: No - Living Situation & Occupation Living situation: Reports: Single, with Family (Father + his father's girlfriend) 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 - Physical Exam Exam: See Below Exam Limited By: No Limitations General Appearance: Alert, WD/WN, No Apparent Distress Respiratory/Chest: No Respiratory Distress, Lungs Clear, Normal Breath Sounds Cardiovascular: Normal Peripheral Pulses, Regular Rate, Rhythm, No Murmur GI/Abdominal: Normal Bowel Sounds, Soft, Non-Tender, No Distention, No Mass Neuro Exam (Abbreviated): Alert, Oriented, Normal Cognition, No Motor/Sensory Deficits Extremities: Normal Inspection, Normal Capillary Refill Psychiatric: Normal Affect, Normal Mood Skin Exam: Warm, Dry, Intact, Normal Color, No Rash Course - Vital Signs Last Recorded V/S: Last Vital Signs Temp 98.4 F 07/16/20 17:39 Pulse 97 07/16/20 17:39 Resp 13 07/16/20 17:39 BP 130/88 07/16/20 17:39 Pulse Ox 100 07/16/20 17:39 - Orders/Labs/Meds Orders: Active Orders 24 hr Category Date Time Status LAMOTRIGINE, SERUM [REF] Stat Lab 07/16/20 17:56 Ordered LEVETIRACETAM, S [REF] Stat Lab 07/16/20 17:56 Ordered Meds: Medications Discontinued Medications Generic Name Dose Route Start Last Admin Trade Name Antoine PREvelyne Reason Stop Dose Admin Lorazepam 1 mg 07/16/20 18:02 07/16/20 18:08 Ativan IVPUSH 07/16/20 18:03 1 mg ONETIME ONE Administration - Re-Assessments/Exams Free Text/Narrative Re-Assessment/Exam: 07/16/20 18:16 Patient presents to the ED for the evaluation of his possible seizure. He will be given a 1 mg dose of Ativan for management. He will have a Keppra and lamotrigine level taken, and we will follow-up with him on get results of these Departure - Departure Time of Disposition: 18:41 Disposition: Home, Self-Care 01 Condition: Good Clinical Impression: Seizure, Alcohol use disorder - Discharge Information *PRESCRIPTION DRUG MONITORING PROGRAM REVIEWED*: No *COPY OF PRESCRIPTION DRUG MONITORING REPORT IN PATIENT ARGENIS: No Instructions: Seizure, Adult, [id number] Forms: ED Department Discharge Additional Instructions: You were evaluated in the ER today for your seizure. You were given 1 dose of IV Ativan, to help prevent further seizures. You also had labs taken to check your Lamictal and Keppra levels, this will take a few days to result, you we called and made notified of these results. Please continue to take all your previous medications as previously directed. Please try to keep yourself well-hydrated and stay away from liquids that contain alcohol in them. If you think you need help to stop drinking, [facility] telephone number [phone], you can go there Friday through Friday for further help in management of your alcoholism. Recommend you follow-up with your regular care providers, sometime this next week, and tell them you are having increased seizure activity, as it was stated you have had 3 in the last month. Please return to the ER at any time if your symptoms change or worsen. Sepsis Event Note (ED) - Evaluation Sepsis Screening Result: No Definite Risk - Focused Exam Vital Signs: Vital Signs Temp Pulse Resp BP Pulse Ox 07/16/20 17:39 98.4 F 97 13 130/88 100 - My Orders Last 24 Hours: My Active Orders 07/16/20 17:56 LAMOTRIGINE, SERUM [REF] Stat LEVETIRACETAM, S [REF] Stat - Assessment/Plan Last 24 Hours: My Active Orders 07/16/20 17:56 LAMOTRIGINE, SERUM [REF] Stat LEVETIRACETAM, S [REF] Stat
[2020-07-16 18:52] VITALS: BP 103/70; PULSE 70
== END 2020-07-16 18:52 | disposition home or self-care (01) ==
LOC: JD.ED 17:18
DX: R56.9 Unspecified convulsions (principal); F17.210 Nicotine dependence, cigarettes, uncomplicated; F10.99 Alcohol use, unspecified with unspecified alcohol-induced disorder; Z79.899 Other long term (current) drug therapy
CPT/HCPCS: 80175; 80177; 96374; 99284; J2060; 36415; 99283

== ENCOUNTER 2020-10-26 01:00 | Emergency (ER) | payer SELFPAY ==
[2020-10-26 01:27] VITALS: BP 146/92; PULSE 93
--- NOTE | 2020-10-26 03:18 | EDM.PDOC ---
ED HPI GENERAL MEDICAL PROBLEM - General Chief Complaint: Laceration Stated Complaint: FACIAL INJURIES Time Seen by Provider: 10/26/20 02:57 Source of Information: Reports: Patient History Limitations: Reports: No Limitations - History of Present Illness INITIAL COMMENTS - FREE TEXT/NARRATIVE: Mr. Espinosa is a very pleasant 25-year-old gentleman with a past medical history significant for chronic daily alcoholism, who now presents to the ED with a laceration across his left eyebrow. He states that he was at [email or web address] around 21:30 edison, that he got into a disagreement with someone, and decided to walk away. When he was walking on sidewalk, he tripped and fell, causing the laceration. He denies loss of consciousness. He states that other than his left eyebrow laceration, he is uninjured. He states emphatically that the injury was not caused by the person that he had a disagreement with. He acknowledges that he was drinking, but states that he is not intoxicated, however, he smells strongly of alcohol and clinically appears to be intoxicated. In the ED, the patient's initial BP is found to be mildly elevated at 146/92, otherwise, he is hemodynamically stable, afebrile, saturating 97% on room air. Other than edison's left eyebrow injury, the patient denies having a recent fever, chills, sore throat, ear pain, nasal or sinus congestion, cough, dyspnea, chest pain, palpitations, nausea, vomiting, constipation, diarrhea, abdominal pain, urinary symptoms, recent weight gain or weight loss, recent bloody bowel movements or black bowel movements, recent joint aches, headaches, or rashes. The patient does not have a PCP. His Neurologist is Dr. Marge Whitfield. He believes that his last tetanus vaccination was about 2 years ago. He has not received an influenza vaccine this season, and declined an offer to receive one here in the ED. Left Face/Facial Pain Score (Numeric/FACES): 8 - Related Data Allergies Allergy/AdvReac Type Severity Reaction Status Date / Time seasonal Allergy Other Uncoded 10/26/20 01:27 Home Meds: Home Meds levETIRAcetam [Keppra] 1,000 mg PO BID 06/19/20 [History] lamoTRIgine [Lamotrigine] 150 mg PO BID 07/16/20 [History] Past Medical History Musculoskeletal History: Reports: Fracture (left forearm x 2) Neurological History: Reports: Seizure (alcohol-related) Psychiatric History: Reports: Addiction (alcohol), Anxiety (untreated) - Past Surgical History Musculoskeletal Surgical History: Reports: ORIF (left forearm x 4) Social & Family History - Tobacco Use Tobacco Use Status *Q: Current Every Day Tobacco User Years of Tobacco use: 10 Packs/Tins Daily: 1 - Caffeine Use Caffeine Use: Reports: Energy Drinks Other Caffeine Use: 1 can/day - Alcohol Use Alcohol Use History: Yes Days Per Week of Alcohol Use: 7 Number of Drinks Per Day: 13 Total Drinks Per Week: 91 Alcohol Use Frequency: Daily - Recreational Drug Use Recreational Drug Use: Yes Drug Use in Last 12 Months: Yes Recreational Drug Type: Reports: Cocaine (last smoked crack 2018), Marijuana/Hashish (smokes near-daily) - Living Situation & Occupation Living situation: Reports: Single, with Family (Father + his father's girlfriend) 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 ED EXAM, SKIN/RASH Exam: See Below Exam Limited By: No Limitations General Appearance: Alert, WD/WN, No Apparent Distress Eye Exam: Bilateral Eye: EOMI Ears: Normal External Exam, Hearing Grossly Normal Nose: Normal Inspection Throat/Mouth: Normal Inspection, Normal Lips, Normal Voice, No Airway Compromise Head: Normocephalic, Other (Swelling around left eyebrow, with an approximately 1.5 cm irregular laceration running vertically through the center of the eyebrow) Course - Vital Signs Last Recorded V/S: Last Vital Signs Temp 37.0 C 10/26/20 01:24 Pulse 93 10/26/20 01:24 Resp 20 10/26/20 01:24 BP 146/92 H 10/26/20 01:24 Pulse Ox 97 10/26/20 01:24 - Orders/Labs/Meds Meds: Medications Discontinued Medications Generic Name Dose Route Start Last Admin Trade Name Freq PRN Reason Stop Dose Admin Bupivacaine HCl 10 ml 10/26/20 03:13 10/26/20 04:01 Sensorcaine-Mpf 0.5% INJECT 10/26/20 03:14 Not Given ONETIME ONE Lidocaine/Epinephrine 20 ml 10/26/20 03:13 10/26/20 04:01 Xylocaine 1% With Epinephrine 1:100,000 INJECT 10/26/20 03:14 Not Given ONETIME ONE - Re-Assessments/Exams Free Text/Narrative Re-Assessment/Exam: 10/26/20 04:07 The laceration to the patient's left eyebrow required suturing, therefore I ordered both bupivacaine 0.5% without epinephrine and lidocaine 1% with epinephrine. I went to see a different patient, and when I finished examining that patient, I discovered that Mr. Espinosa had left AMA. Departure - Departure Time of Disposition: 04:08 Disposition: Against Medical Advice 07 Condition: Good Clinical Impression: Laceration of left eyebrow Alcohol intoxication Qualifiers: Complication of substance-induced condition: with unspecified complication Qualified Code(s): F10.929 - Alcohol use, unspecified with intoxication, unspecified - Discharge Information *PRESCRIPTION DRUG MONITORING PROGRAM REVIEWED*: Not Applicable *COPY OF PRESCRIPTION DRUG MONITORING REPORT IN PATIENT ARGENIS: Not Applicable Referrals: Marge Whitfield MD [Ordering Only Provider] - Forms: ED Department Discharge Sepsis Event Note (ED) - Evaluation Sepsis Screening Result: No Definite Risk - Focused Exam Vital Signs: Vital Signs Temp Pulse Resp BP Pulse Ox 10/26/20 01:24 37.0 C 93 20 146/92 H 97
[2020-10-26] MEDS: Bupivacaine 0.5% 10 ML SDV INJECT ONE ×2 (03:19→04:01)
[2020-10-26] MEDS: Lidocaine 1% with EPINEPHrine 1:100,000 20 ML MDV INJECT ONE ×2 (03:19→04:01)
== END 2020-10-26 04:00 | disposition left against medical advice (07) ==
LOC: JD.ED 01:00
DX: S01.112A Laceration without foreign body of left eyelid and periocular area, initial encounter (principal); F10.129 Alcohol abuse with intoxication, unspecified; R56.9 Unspecified convulsions; F17.210 Nicotine dependence, cigarettes, uncomplicated; Z91.048 Other nonmedicinal substance allergy status; Z79.899 Other long term (current) drug therapy; W01.0XXA Fall on same level from slipping, tripping and stumbling without subsequent striking against object, initial encounter; Y93.01 Activity, walking, marching and hiking; Y92.480 Sidewalk as the place of occurrence of the external cause
CPT/HCPCS: 99282; 99283; J3490

== ENCOUNTER 2021-02-04 11:46 | Emergency (ER) | payer SELFPAY ==
[2021-02-04 11:54] VITALS: PULSE 110
[2021-02-04] MEDS ORDERED: LORazepam 2 MG/ML SDV IVPUSH ONE ×2 (11:54→16:10)
--- NOTE | 2021-02-04 11:57 | EDM.PDOC ---
ED HPI GENERAL MEDICAL PROBLEM - General Chief Complaint: Neurological Problem Stated Complaint: [facility] Time Seen by Provider: 02/04/21 11:51 - History of Present Illness INITIAL COMMENTS - FREE TEXT/NARRATIVE: 25-year-old male returns to the emergency room with a history of 3 seizures today. He has brought in by EMS. Patient states he had 3 seizures today he did hit his head he is got ecchymosis and bruising and swelling above the bridge of his nose extending into his right upper eye lid. Is on Keppra and lamotrigine he states he has been taking this as directed. The patient has a history of alcoholism however he states he has been drinking intermittently not on an every day basis and not very heavy. 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 Patient has seen neurology in [place] but he cannot recall who. From a seizure over a month ago the patient has an injury to his right tongue he has a flap of skin on the side of the tongue, this has not changed. - Related Data Allergies Allergy/AdvReac Type Severity Reaction Status Date / Time seasonal Allergy Other Uncoded 02/04/21 11:54 Home Meds: Home Meds levETIRAcetam [Keppra] 1,000 mg PO BID 06/19/20 [History] lamoTRIgine [Lamotrigine] 150 mg PO BID 07/16/20 [History] Past Medical History HEENT History: Reports: Other (See Below) Other HEENT History: missing tooth. Gastrointestinal History: Reports: Gastritis, GERD Genitourinary History: Reports: Renal Disease Musculoskeletal History: Reports: Fracture (left forearm x 2) Other Musculoskeletal History: broke both arms, ankle Neurological History: Reports: Seizure (alcohol-related) Psychiatric History: Reports: Addiction (alcohol), Anxiety (untreated) - Infectious Disease History Infectious Disease History: Reports: None - Past Surgical History Musculoskeletal Surgical History: Reports: ORIF (left forearm x 4) Social & Family History - Family History Family Medical History: No Pertinent Family History Respiratory: Reports: COPD - Caffeine Use Caffeine Use: Reports: Energy Drinks Other Caffeine Use: 1 can/day - Living Situation & Occupation Living situation: Reports: Single, with Family (Father + his father's girlfriend) 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 Denies: Headache Hematologic/Lymphatic: Reports: No Symptoms Immunologic: Reports: No Symptoms ED EXAM, GENERAL - Physical Exam Exam: See Below Exam Limited By: No Limitations General Appearance: Alert, No Apparent Distress, Other (Crush injury to the bridge of his nose with some mild swelling extending towards his right upper eyelid.) Eye Exam: Bilateral Eye: EOMI, Normal Inspection, PERRL Ears: Normal External Exam, Normal Canal, Hearing Grossly Normal, Normal TMs, Other (Nonobstructing cerumen noted in the right canal) Nose: Other (He has swelling over the bridge of his nose as described above. No septal hematoma noted) Throat/Mouth: Normal Inspection, Normal Lips, Normal Teeth, Normal Gums, Normal Oropharynx, Normal Voice, No Airway Compromise, Other (Mild biting at the anterior tip of the tongue that looks acute he has a skin flap from a reported seizure over a month ago on the right side of his tongue) Head: Other (Nasal injury as stated above.) Respiratory/Chest: No Respiratory Distress, Lungs Clear, Normal Breath Sounds Cardiovascular: Regular Rate, Rhythm, No Edema, No Murmur GI/Abdominal: Normal Bowel Sounds, Soft, Non-Tender Back Exam: Normal Inspection. No: CVA Tenderness (L), CVA Tenderness (R) Extremities: Normal Inspection, Normal Range of Motion, Non-Tender, No Pedal Edema Neurological: Alert, Oriented, Normal Cognition Psychiatric: Flat Affect Course - Vital Signs Last Recorded V/S: Last Vital Signs Temp 36.6 C 02/04/21 11:50 Pulse 110 H 02/04/21 11:50 Resp 15 02/04/21 11:50 BP Pulse Ox - Orders/Labs/Meds Orders: Active Orders 24 hr Category Date Time Status Chest 1V Frontal [CR] Stat Exams 02/04/21 17:57 Taken Elbow Min 3V Lt [CR] Stat Exams 02/04/21 18:37 Taken Head wo Cont [CT] Stat Exams 02/04/21 12:14 Taken Head wo Cont [CT] Stat Exams 04/04/21 16:42 Taken CULTURE URINE [RM] Stat Lab 02/04/21 14:50 Received LAMOTRIGINE, SERUM [REF] Stat Lab 02/04/21 11:55 Received LEVETIRACETAM, S [REF] Stat Lab 02/04/21 11:55 Received Labs: Laboratory Tests 02/04/21 02/04/21 02/04/21 Range/Units 11:55 11:55 11:55 WBC 8.88 (4.23-9.07) K/mm3 RBC 4.21 L (4.63-6.08) M/mm3 Hgb 14.6 (13.7-17.5) gm/dl Hct 41.5 (40.1-51.0) % MCV 98.6 H (79.0-92.2) fl MCH 34.7 H (25.7-32.2) pg MCHC 35.2 (32.2-35.5) g/dl RDW Std Deviation 44.8 H (35.1-43.9) fL Plt Count 140 L D (163-337) K/mm3 MPV 9.4 (9.4-12.3) fl Neut % (Auto) 90.4 H (34.0-67.9) % Lymph % (Auto) 3.3 L (21.8-53.1) % [place] % (Auto) 5.9 (5.3-12.2) % Eos % (Auto) 0 L (0.8-7.0) Baso % (Auto) 0.2 (0.1-1.2) % Neut # (Auto) 8.03 H (1.78-5.38) K/mm3 Lymph # (Auto) 0.29 L (1.32-3.57) K/mm3 [place] # (Auto) 0.52 (0.30-0.82) K/mm3 Eos # (Auto) 0.00 L (0.04-0.54) K/mm3 Baso # (Auto) 0.02 (0.01-0.08) K/mm3 Manual Slide Review Abnormal smear Sodium 135 L (136-145) mEq/L Potassium 3.6 (3.5-5.1) mEq/L Chloride 92 L (98-107) mEq/L Carbon Dioxide 23 (21-32) mEq/L Anion Gap 23.6 H (5-15) BUN 9 (7-18) mg/dL Creatinine 1.0 (0.7-1.3) mg/dL Est Cr Clr Drug Dosing TNP Estimated GFR (MDRD) > 60 (>60) mL/min BUN/Creatinine Ratio 9.0 L (14-18) Glucose 175 H (74-106) mg/dL Calcium 10.0 (8.5-10.1) mg/dL Magnesium 1.6 L (1.8-2.4) mg/dl Total Bilirubin 1.7 H (0.2-1.0) mg/dL AST 244 H (15-37) U/L ALT 124 H (16-63) U/L Alkaline Phosphatase 120 H (46-116) U/L Total Protein 7.9 (6.4-8.2) g/dl Albumin 4.5 (3.4-5.0) g/dl Globulin 3.4 gm/dL Albumin/Globulin Ratio 1.3 (1-2) Urine Color (Yellow) Urine Appearance (Clear) Urine pH (5.0-8.0) Ur Specific [place] (1.005-1.030) Urine Protein (Negative) Urine Glucose (UA) (Negative) Urine Ketones (Negative) Urine Occult Blood (Negative) Urine Nitrite (Negative) Urine Bilirubin (Negative) Urine Urobilinogen (0.2-1.0) Ur Leukocyte Esterase (Negative) U Hyaline Cast (Auto) Urine RBC Urine WBC Urine WBC Clumps Ur Epithelial Cells Ur Squamous Epith Cells Ur Transition Epith Cell Ur Renal Epithelial Cell [place] Biurate Crystals Calcium Carbonate Cryst Calcium Phosphate Cryst Calcium Oxalate Crystal Leucine Crystals Cystine Crystals Uric Acid Crystals Triple Phos Crystals Sodium Urate Crystals Tyrosine Crystals Other Crystals Amorphous Sediment Urine Bacteria Epithelial Casts Fatty Casts Fine Granular Casts Coarse Granular Casts Waxy Casts Broad Casts RBC Casts WBC Casts Urine Mucus Urine Other Urine Trichomonas Urine Yeast Ur Yeast w Hyphae Urine Yeast (Budding) Ur Oval Fat Bodies Urinalysis Comment Urine Opiates Screen (QNTIDJ=289) Ur Buprenorphine Scrn (CUTOFF=10) Ur Oxycodone Screen (USY2WS=764) Urine Methadone Screen (KTK3JM=720) Ur Propoxyphene Screen (BJAELL=452) Ur Barbiturates Screen (GXURNH=448) Ur Tricyclics Screen (BORRFP=567) Ur Phencyclidine Scrn (CUTOFF=25) Ur Amphetamine Screen (URMKCF=668) U Methamphetamines Scrn (NSACBX=511) U Benzodiazepines Scrn (ASQFZB=493) U Cocaine Metab Screen (NVDMUA=121) U Marijuana (THC) Screen (CUTOFF=50) Ethyl Alcohol 0.00 (0.00) gm% SARS-CoV-2 RNA (VÍTCOR) (NEGATIVE) 02/04/21 02/04/21 02/04/21 Range/Units 14:50 14:50 17:29 WBC (4.23-9.07) K/mm3 RBC (4.63-6.08) M/mm3 Hgb (13.7-17.5) gm/dl Hct (40.1-51.0) % MCV (79.0-92.2) fl MCH (25.7-32.2) pg MCHC (32.2-35.5) g/dl RDW Std Deviation (35.1-43.9) fL Plt Count (163-337) K/mm3 MPV (9.4-12.3) fl Neut % (Auto) (34.0-67.9) % Lymph % (Auto) (21.8-53.1) % [place] % (Auto) (5.3-12.2) % Eos % (Auto) (0.8-7.0) Baso % (Auto) (0.1-1.2) % Neut # (Auto) (1.78-5.38) K/mm3 Lymph # (Auto) (1.32-3.57) K/mm3 [place] # (Auto) (0.30-0.82) K/mm3 Eos # (Auto) (0.04-0.54) K/mm3 Baso # (Auto) (0.01-0.08) K/mm3 Manual Slide Review Sodium (136-145) mEq/L Potassium (3.5-5.1) mEq/L Chloride (98-107) mEq/L Carbon Dioxide (21-32) mEq/L Anion Gap (5-15) BUN (7-18) mg/dL Creatinine (0.7-1.3) mg/dL Est Cr Clr Drug Dosing Estimated GFR (MDRD) (>60) mL/min BUN/Creatinine Ratio (14-18) Glucose (74-106) mg/dL Calcium (8.5-10.1) mg/dL Magnesium (1.8-2.4) mg/dl Total Bilirubin (0.2-1.0) mg/dL AST (15-37) U/L ALT (16-63) U/L Alkaline Phosphatase (46-116) U/L Total Protein (6.4-8.2) g/dl Albumin (3.4-5.0) g/dl Globulin gm/dL Albumin/Globulin Ratio (1-2) Urine Color Dark yellow (Yellow) Urine Appearance Slt cloudy H (Clear) Urine pH >=9.0 H (5.0-8.0) Ur Specific [place] 1.025 (1.005-1.030) Urine Protein 3+ H (Negative) Urine Glucose (UA) Negative (Negative) Urine Ketones 4+ H (Negative) Urine Occult Blood Trace-intact H (Negative) Urine Nitrite Positive H (Negative) Urine Bilirubin 2+ H (Negative) Urine Urobilinogen 2.0 H (0.2-1.0) Ur Leukocyte Esterase Negative (Negative) U Hyaline Cast (Auto) Cancelled Urine RBC Cancelled Urine WBC Cancelled Urine WBC Clumps Cancelled Ur Epithelial Cells Cancelled Ur Squamous Epith Cells Cancelled Ur Transition Epith Cell Cancelled Ur Renal Epithelial Cell Cancelled [place] Biurate Crystals Cancelled Calcium Carbonate Cryst Cancelled Calcium Phosphate Cryst Cancelled Calcium Oxalate Crystal Cancelled Leucine Crystals Cancelled Cystine Crystals Cancelled Uric Acid Crystals Cancelled Triple Phos Crystals Cancelled Sodium Urate Crystals Cancelled Tyrosine Crystals Cancelled Other Crystals Cancelled Amorphous Sediment Cancelled Urine Bacteria Cancelled Epithelial Casts Cancelled Fatty Casts Cancelled Fine Granular Casts Cancelled Coarse Granular Casts Cancelled Waxy Casts Cancelled Broad Casts Cancelled RBC Casts Cancelled WBC Casts Cancelled Urine Mucus Cancelled Urine Other Cancelled Urine Trichomonas Cancelled Urine Yeast Cancelled Ur Yeast w [place]pha[place] Cancelled Urine Yeast (Budding) Cancelled Ur Oval Fat Bodies Cancelled Urinalysis Comment Cancelled Urine Opiates Screen Negative (RKEPZX=493) Ur Buprenorphine Scrn Negative (CUTOFF=10) Ur Oxycodone Screen Negative (PJS0YO=810) Urine Methadone Screen Negative (JDR3YY=631) Ur Propoxyphene Screen Negative (JONVFS=922) Ur Barbiturates Screen Negative (SMPSXU=347) Ur Tricyclics Screen Negative (UHYCQU=254) Ur Phencyclidine Scrn Negative (CUTOFF=25) Ur Amphetamine Screen Negative (YOBGKI=655) U Methamphetamines Scrn Negative (FYFFKF=990) U Benzodiazepines Scrn Negative (OFDDSN=478) U Cocaine Metab Screen Negative (BVFHVH=703) U Marijuana (THC) Screen Presumptive positive H (CUTOFF=50) Ethyl Alcohol (0.00) gm% SARS-CoV-2 RNA (VÍCTOR) Negative (NEGATIVE) Meds: Medications Discontinued Medications Generic Name Dose Route Start Last Admin Trade Name Antoine PRN Reason Stop Dose Admin Fentanyl Confirm 02/04/21 17:26 Fentanyl 2500 Mcg/50 Ml Sdv Administered 02/04/21 17:27 Dose 2,500 mcg .ROUTE .STK-MED ONE Lactated Ringer's 1,000 mls @ 999 mls/hr 02/04/21 13:21 02/04/21 14:06 Ringers, Lactated IV 02/04/21 14:21 999 mls/hr .BOLUS ONE Administration Lactated Ringer's 1,000 mls @ 999 mls/hr 02/04/21 13:24 02/04/21 15:55 Ringers, Lactated IV 02/04/21 14:24 999 mls/hr .BOLUS ONE Administration Magnesium Sulfate Confirm 02/04/21 14:03 02/04/21 14:09 Magnesium Sulfate In Water 2 Gm/50 Ml Administered 02/04/21 14:04 Not Given Dose 2 gm in 50 mls @ as directed .ROUTE .STK-MED ONE Magnesium Sulfate 2 gm in 50 mls @ 25 mls/hr 02/04/21 14:07 02/04/21 14:09 Magnesium Sulfate In Water 2 Gm/50 Ml IV 02/04/21 16:06 25 mls/hr ONETIME ONE Administration Levetiracetam 2,100 mg/ Sodium 121 mls @ 400 mls/hr 02/04/21 16:29 Chloride IV 02/04/21 16:43 ONETIME ONE Propofol Confirm 02/04/21 17:00 Diprivan 100 Ml Administered 02/04/21 17:01 Dose 100 mls @ as directed .ROUTE .STK-MED ONE Lactated Ringer's Confirm 02/04/21 17:02 Ringers, Lactated Administered 02/04/21 17:03 Dose 1,000 mls @ as directed .ROUTE .STK-MED ONE Fentanyl 2,500 mcg/ Sodium 250 mls @ 7 mls/hr 02/04/21 18:15 Chloride IV TITRATE NATHANAEL Protocol 1 MCG/KG/HR Sodium Chloride Confirm 02/04/21 17:26 Normal Saline Administered 02/04/21 17:27 Dose 250 mls @ as directed .ROUTE .STK-MED ONE Sodium Chloride Confirm 02/04/21 18:02 Normal Saline Administered 02/04/21 18:03 Dose 250 mls @ as directed .ROUTE .STK-MED ONE Propofol Confirm 02/04/21 18:40 Diprivan 100 Ml Administered 02/04/21 18:41 Dose 100 mls @ as directed .ROUTE .STK-MED ONE Lorazepam 1 mg 02/04/21 11:54 02/04/21 12:26 Lorazepam 2 Mg/Ml Sdv IVPUSH 02/04/21 11:55 1 mg ONETIME ONE Administration Lorazepam Confirm 02/04/21 16:10 Lorazepam 2 Mg/Ml Sdv Administered 02/04/21 16:11 Dose 2 mg .ROUTE .STK-MED ONE Midazolam HCl Confirm 02/04/21 16:29 Midazolam 1 Mg/Ml 2 Ml Sdv Administered 02/04/21 16:30 Dose 2 mg .ROUTE .STK-MED ONE - Re-Assessments/Exams Free Text/Narrative Re-Assessment/Exam: 02/04/21 20:38 Patient had a prolonged course here in the emergency department he presented with a history of having 3 seizures today. 1 seizure the last of the 3, according to the patient's father who told the patient's himself that this lasted around 20 minutes. The patient adamantly denies using regular use of alcohol says he has a drink intermittently on a very rare occasion. The patient is on 2 antiepileptic medications. He has history of alcohol being a significant trigger of his seizures. Patient was questioned multiple times as to how much he has been drinking and he stuck to his original story. The valentin gomez was evaluated he was found to be hypokalemic And have a low magnesium as well. These issues were addressed his initial head CT was unremarkable. Patient upon arrival did receive a milligram of Ativan. Levels for his antiepileptic medication were obtained however these are send out and do not provide us known therapeutic effects of his medication at this time. The patient states he has a local physician here but cannot recall the name and the patient does have a neurologist in [place] but again cannot recall the name of the clinic location or name of the neurologist. The patient had an episode he pulled his IV out and walked through the emergency department into another patient's room at which point he had a seizure that was observed by all of us after he hit the ground in one of the trauma bays. This was a generalized tonic-clonic seizure lasting nearly 2 minutes. The patient has a history of taking Keppra 1000 mg twice a day with the uncertainty of this I gave him a 30 m g/kg bolus of Keppra. I did discuss the patient's case with Dr. Caruso neurologist at [place] I had no idea who he was seeing in [place]. Dr. Caruso concurred with a 30 mg/kg bolus. And recommended the patient be sent for transfer. However, he did call back and was able to do some looking and found that the patient was seen Dr. Whitfield out of [facility]. I then contacted 1 call at [facility] and with the uncertainty of the patient it was determined the patient would go through the emergency room however the patient needed to be intubated here in the emergency department to protect his airway and for his own protection as he was still little combative and required restraints. With the fall in the emergency department I wanted to check another head CT because the patient sustained an abrasion and contusion to the left occipital area. The patient that was in the trauma bay did mention that this patient did strike his head fairly hard. The patient was intubated with a 7.0 ET tube with 1 attempt with glide scope assistance after receiving ketamine and succinylcholine. Original depth of the ET tube is 22 cm at the teeth the tube was later advanced to 24 after reviewing his postintubation x-ray. The patient also had a orogastric tube placed this was also advanced further after getting the chest x-ray. The patient had good control after instituting fentanyl drip and propofol. And he had received the Keppra bolus. Shortly before leaving the department the patient did have a repeat head CT that was unremarkable except for some soft tissue swelling over the left occipital area. Initially Dr. Roa accepted the transfer in the emergency room at [facility]. However after the patient was stabilized here they thought it was best for him to go straight to the ICU the patient's case was then discussed with the lithographic plate maker apprentice, this discussion occurred after the patient departed the department. After the patient was intubated we were contacted by the patient's grandmother who did inform us that the patient actually had been drinking quite heavily for some time prior to this however quit a couple of days ago. Departure - Departure Time of Disposition: 19:00 Disposition: DC/Tfer to [facility] 02 Clinical Impression: Status epilepticus Alcohol withdrawal syndrome Qualifiers: Complication of substance-induced condition: with unspecified complication Qualified Code(s): F10.239 - Alcohol dependence with withdrawal, unspecified - Discharge Information Referrals: PCP,None [Primary Care Provider] - Forms: ED Department Discharge Sepsis Event Note (ED) - Focused Exam Vital Signs: Vital Signs Temp Pulse Resp 02/04/21 11:50 36.6 C 110 H 15 - My Orders Last 24 Hours: My Active Orders 02/04/21 11:55 LAMOTRIGINE, SERUM [REF] Stat LEVETIRACETAM, S [REF] Stat 02/04/21 12:14 Head wo Cont [CT] Stat 02/04/21 14:50 CULTURE URINE [RM] Stat 02/04/21 16:42 Head wo Cont [CT] Stat 02/04/21 17:57 Chest 1V Frontal [CR] Stat 02/04/21 18:37 Elbow Min 3V Lt [CR] Stat - Assessment/Plan Last 24 Hours: My Active Orders 02/04/21 11:55 LAMOTRIGINE, SERUM [REF] Stat LEVETIRACETAM, S [REF] Stat 02/04/21 12:14 Head wo Cont [CT] Stat 02/04/21 14:50 CULTURE URINE [RM] Stat 02/04/21 16:42 Head wo Cont [CT] Stat 02/04/21 17:57 Chest 1V Frontal [CR] Stat 02/04/21 18:37 Elbow Min 3V Lt [CR] Stat
[2021-02-04] MEDS ORDERED: Lactated Ringers 1,000 ML IV ONE ×2 (13:21→13:24)
[2021-02-04] MEDS ORDERED: Magnesium Sulfate/Water 2 GM/50 ML BAG ONE (14:03)
[2021-02-04] MEDS ORDERED: Magnesium Sulfate/Water 2 GM/50 ML BAG IV ONE (14:07)
[2021-02-04] MEDS ORDERED: LORazepam 2 MG/ML SDV ONE (16:10)
[2021-02-04] MEDS ORDERED: Midazolam 1 MG/ML 2 ML SDV ONE (16:29)
[2021-02-04] MEDS ORDERED: SODIUM CHLORIDE 0.9% IV ONE (16:29)
[2021-02-04] MEDS ORDERED: LEVETIRACETAM IV ONE (16:29)
[2021-02-04] MEDS ORDERED: Midazolam 1 MG/ML 2 ML SDV IVPUSH ONE (16:30)
[2021-02-04] MEDS ORDERED: Midazolam 1 MG/ML 5 ML SDV ONE ×2 (17:00)
[2021-02-04] MEDS ORDERED: Ketamine 500 mg/10 ML MDV ONE (17:00)
[2021-02-04] MEDS ORDERED: propofoL 100 ML ONE ×2 (17:00→18:40)
[2021-02-04] MEDS ORDERED: fentaNYL 100 MCG/2 ML SDV ONE (17:00)
[2021-02-04] MEDS ORDERED: Succinylcholine 200 MG/10 ML MDV ONE (17:00)
[2021-02-04] MEDS ORDERED: Propofol 200 MG/20 ML SDV ONE (17:00)
[2021-02-04] MEDS ORDERED: Lactated Ringers 1,000 ML ONE (17:02)
[2021-02-04] MEDS ORDERED: propofoL 100 ML IV SCH (17:25)
[2021-02-04] MEDS ORDERED: Sodium Chloride 0.9% 250 ML ONE ×2 (17:26→18:02)
[2021-02-04] MEDS ORDERED: fentaNYL 2500 MCG/50 ML SDV ONE (17:26)
[2021-02-04] MEDS ORDERED: fentaNYL 2,500 MCG in Sodium Chloride 0.9% 200 ML IV SCH (18:15)
--- NOTE | 2021-02-05 07:45 | CT ---
Head CT Technique: Multiple axial sections through the brain were obtained. Intravenous contrast was not utilized. Reconstructed coronal and sagittal images were obtained. Comparison: Prior head CT study of 08/28/18. Findings: Ventricles are slightly prominent for the patient's age but stable from prior head CT. No abnormal parenchymal densities are seen. No evidence of intracranial hemorrhage. No midline shift or mass-effect is seen. Bone window settings were reviewed. Visualized paranasal sinuses and mastoid sinuses show nothing acute. No acute calvarial abnormality is appreciated. Impression: 1. Nothing acute is appreciated on noncontrast head CT exam. 2. No change is seen from previous study. Diagnostic code #2 I agree with preliminary report from [facility], finalized on 02/04/21, 2:14 PM CDT
--- NOTE | 2021-02-05 08:09 | CR ---
Chest: Portable view of the chest was obtained in supine projection. Comparison: Prior chest x-ray of 07/03/15. Heart size and mediastinum are normal. Lungs are clear with no acute parenchymal change. Endotracheal tube is seen which lies above the jacey by about 7 mm. Nasogastric tube is seen lying within the proximal stomach and should be advanced. Old healed right-sided rib fracture is noted. Impression: 1. Tip of nasogastric tube is in the proximal stomach and should be advanced. 2. Endotracheal tube as noted above. 3. Nothing acute is otherwise seen. Diagnostic code #2 I agree with preliminary report from [facility], finalized on 02/04/21, 7:24 PM CDT
--- NOTE | 2021-02-05 09:43 | CT ---
Head CT Technique: Multiple axial sections through the brain were obtained. Intravenous contrast was not utilized. Reconstructed coronal and sagittal images were obtained. Comparison: Prior noncontrast head CT study performed earlier on the same day (12:50 PM). Findings: Ventricles are slightly prominent for the patient's age but stable from prior head CT. No abnormal parenchymal densities are seen. There is a soft tissue hematoma being seen within the posterior left scalp. No evidence of intracranial hemorrhage. No midline shift or mass-effect is seen. Bone window settings were reviewed which show no acute osseous finding. Visualized paranasal sinuses show nothing acute. No discrete abnormality within the mastoid sinuses are seen. No acute fracture is noted within the calvarium. Impression: 1. Soft tissue hematoma within the left posterior scalp. 2. No acute intracranial abnormality is seen. Diagnostic code #3 I agree with preliminary report from [facility], finalized on 02/04/21, 8:44 PM CDT
--- NOTE | 2021-02-05 09:43 | CR ---
Left elbow: 3 views of the left elbow were obtained. Comparison: No previous study. Joint spaces are preserved. No acute fracture, dislocation or other bony abnormality is appreciated. Impression: 1. Nothing acute is appreciated on left elbow study. Diagnostic code #1
== END 2021-02-04 18:58 ==
LOC: JD.ED 11:46
DX: G40.901 Epilepsy, unspecified, not intractable, with status epilepticus (principal); S07.0XXA Crushing injury of face, initial encounter; F10.239 Alcohol dependence with withdrawal, unspecified; Z20.822 Contact with and (suspected) exposure to COVID-19; Z91.048 Other nonmedicinal substance allergy status; Z79.899 Other long term (current) drug therapy; W22.8XXA Striking against or struck by other objects, initial encounter
CPT/HCPCS: 31500; 36415; 43752; 51702; 70450; 71045; 73080; 80053; 80175; 80177; 80306; 80307; 81003; 83735; 85025; 87086; 87088; 87186; 87635; 96365; 96366; 96367; 96368; 96375; 96376; 99285; J0330; J1953; J2060; J2250; J2704; J3010; J3475; J7050; J7120; U0002

== ENCOUNTER 2021-03-18 18:14 | Emergency (ER) | payer SELFPAY ==
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
== END 2021-03-18 20:50 | disposition expired ==
LOC: JD.ED 18:14
DX: I46.9 Cardiac arrest, cause unspecified (principal); S32.9XXA Fracture of unspecified parts of lumbosacral spine and pelvis, initial encounter for closed fracture; S01.81XA Laceration without foreign body of other part of head, initial encounter; S31.619A Laceration without foreign body of abdominal wall, unspecified quadrant with penetration into peritoneal cavity, initial encounter; S29.9XXA Unspecified injury of thorax, initial encounter; Z91.048 Other nonmedicinal substance allergy status; V19.49XA Pedal cycle driver injured in collision with other motor vehicles in traffic accident, initial encounter
CPT/HCPCS: 31500; 99285-25; 99291